=== PATIENT | female | born 1955 | race Caucasian/White ===

== ENCOUNTER 2019-08-14 05:45 | Outpatient (RCR) | payer MEDICARE, MEDICAID, SELFPAY | END 2019-08-15 00:01 | LOC: ONCMED 05:45 | PROVIDERS: Family Provider Family Medicine; PCP Nurse Practitioner; Visit Provider Internal Medicine Medical Oncology | DX: C54.1 Malignant neoplasm of endometrium (principal); C79.61 Secondary malignant neoplasm of right ovary; C77.5 Secondary and unspecified malignant neoplasm of intrapelvic lymph nodes; E03.9 Hypothyroidism, unspecified; K21.9 Gastro-esophageal reflux disease without esophagitis; M25.552 Pain in left hip; M25.551 Pain in right hip; I10 Essential (primary) hypertension; E78.5 Hyperlipidemia, unspecified; J45.909 Unspecified asthma, uncomplicated; G47.33 Obstructive sleep apnea (adult) (pediatric); M48.9 Spondylopathy, unspecified; M19.90 Unspecified osteoarthritis, unspecified site; F32.9 Major depressive disorder, single episode, unspecified; Z90.722 Acquired absence of ovaries, bilateral; Z90.710 Acquired absence of both cervix and uterus; Z92.3 Personal history of irradiation ==

== ENCOUNTER 2019-09-12 05:48 | Outpatient (RCR) | payer MEDICARE, MEDICAID, SELFPAY | END 2019-09-15 23:59 | disposition home or self-care (01) | LOC: ONCMED 05:48 | PROVIDERS: Family Provider Family Medicine; PCP Nurse Practitioner; Visit Provider Internal Medicine Medical Oncology | DX: Z08 Encounter for follow-up examination after completed treatment for malignant neoplasm (principal); Z85.42 Personal history of malignant neoplasm of other parts of uterus; R60.0 Localized edema; M06.9 Rheumatoid arthritis, unspecified; Z90.710 Acquired absence of both cervix and uterus; Z92.21 Personal history of antineoplastic chemotherapy; Z92.3 Personal history of irradiation | CPT/HCPCS: 36591; 99213 ==

== ENCOUNTER 2019-09-19 11:32 | Outpatient (CLI) | payer MEDICARE, MEDICAID, SELFPAY ==
--- NOTE | 2019-09-19 11:42 | XR_ITS ---
WS: [id number] FOOT LEFT TECHNIQUE: 3 views of the left foot CLINICAL INFORMATION: LEFT HEEL PAIN COMPARISON: None. FINDINGS: No evidence of acute fracture or dislocation. Normal tarsal metatarsal alignment. Normal calcaneus. N ormal visualized talar dome. Plantar calcaneal spurring. Achilles enthesophyte. IMPRESSION: 1. No acute fractures 2. Plantar calcaneal spurring. Achilles enthesophyte.
== END 2019-09-19 11:33 | disposition home or self-care (01) ==
LOC: RAD 11:38
PROVIDERS: Family Provider Family Medicine; PCP Family Medicine; Visit Provider Nurse Practitioner Family
DX: M79.672 Pain in left foot (principal); M77.32 Calcaneal spur, left foot
CPT/HCPCS: 73630

== ENCOUNTER → 2019-09-27 07:51 | Outpatient (BNVA) | payer MEDICARE, MEDICAID, SELFPAY | PROVIDERS: Family Provider Family Medicine; PCP Family Medicine; Visit Provider Anesthesiology | DX: M54.41 Lumbago with sciatica, right side (principal); M54.42 Lumbago with sciatica, left side; M48.062 Spinal stenosis, lumbar region with neurogenic claudication; Z79.891 Long term (current) use of opiate analgesic | CPT/HCPCS: 99213 ==

== ENCOUNTER 2019-10-11 05:53 | Outpatient (RCR) | payer MEDICARE, MEDICAID, SELFPAY | END 2019-10-14 23:59 | disposition home or self-care (01) | LOC: ONCMED 05:53 | PROVIDERS: Family Provider Family Medicine; PCP Family Medicine; Visit Provider Internal Medicine Medical Oncology | DX: Z45.2 Encounter for adjustment and management of vascular access device (principal) | CPT/HCPCS: 96523 ==

== ENCOUNTER → 2019-10-16 11:52 | Outpatient (BNVA) | payer MEDICARE, MEDICAID, SELFPAY | PROVIDERS: Family Provider Family Medicine; PCP Family Medicine; Visit Provider Anesthesiology Pain Medicine | DX: G89.4 Chronic pain syndrome (principal); M47.816 Spondylosis without myelopathy or radiculopathy, lumbar region; M47.817 Spondylosis without myelopathy or radiculopathy, lumbosacral region | CPT/HCPCS: 64493; 64494; 64520; J2001; J3490 ==

== ENCOUNTER → 2019-10-25 09:40 | Outpatient (BNVA) | payer MEDICARE, MEDICAID, SELFPAY | PROVIDERS: Family Provider Family Medicine; PCP Family Medicine; Visit Provider Anesthesiology | DX: M48.062 Spinal stenosis, lumbar region with neurogenic claudication (principal); M54.42 Lumbago with sciatica, left side; M54.41 Lumbago with sciatica, right side; Z79.891 Long term (current) use of opiate analgesic | CPT/HCPCS: 99213; 99214 ==

== ENCOUNTER → 2019-10-31 08:45 | Outpatient (BNVA) | payer MEDICARE, MEDICAID, SELFPAY | PROVIDERS: Family Provider Family Medicine; PCP Family Medicine; Visit Provider Anesthesiology Pain Medicine | DX: M54.9 Dorsalgia, unspecified (principal); Z79.891 Long term (current) use of opiate analgesic | CPT/HCPCS: 99212 ==

== ENCOUNTER 2019-11-07 10:55 | Outpatient (RCR) | payer MEDICARE, MEDICAID, SELFPAY | END 2019-11-14 23:59 | disposition home or self-care (01) | LOC: ONCMED 10:55 | PROVIDERS: Family Provider Family Medicine; PCP Family Medicine; Visit Provider Internal Medicine Medical Oncology | DX: Z45.2 Encounter for adjustment and management of vascular access device (principal) | CPT/HCPCS: 96523 ==

== ENCOUNTER 2019-12-04 10:23 | Outpatient (RCR) | payer MEDICARE, MEDICAID, SELFPAY | END 2019-12-14 23:59 | disposition home or self-care (01) | LOC: ONCMED 10:23 | PROVIDERS: Family Provider Family Medicine; PCP Family Medicine; Visit Provider Internal Medicine Medical Oncology | DX: Z45.2 Encounter for adjustment and management of vascular access device (principal); C54.1 Malignant neoplasm of endometrium | CPT/HCPCS: 96523 ==

== ENCOUNTER 2020-01-01 07:09 | Outpatient (RCR) | payer MEDICARE, MEDICAID, SELFPAY ==
[2020-01-01] MEDS: alteplase 1 mg/mL SDV 2 mL 2 MG IV (12:23)
== END 2020-01-14 23:59 | disposition home or self-care (01) ==
LOC: ONCMED 07:09
PROVIDERS: PCP Family Medicine; Visit Provider Nurse Practitioner
DX: C54.1 Malignant neoplasm of endometrium (principal); R22.2 Localized swelling, mass and lump, trunk; L72.9 Follicular cyst of the skin and subcutaneous tissue, unspecified
CPT/HCPCS: 36593; 96374; J2997

== ENCOUNTER 2020-01-29 08:01 | Outpatient (RCR) | payer MEDICARE, MEDICAID, SELFPAY | END 2020-02-13 23:59 | disposition home or self-care (01) | LOC: ONCMED 08:01 | PROVIDERS: PCP Family Medicine; Visit Provider Nurse Practitioner | DX: Z45.2 Encounter for adjustment and management of vascular access device (principal); C54.1 Malignant neoplasm of endometrium; L72.9 Follicular cyst of the skin and subcutaneous tissue, unspecified; R22.2 Localized swelling, mass and lump, trunk | CPT/HCPCS: 96523 ==

== ENCOUNTER → 2020-02-20 07:50 | Outpatient (BNVA) | payer MEDICARE, MEDICAID, SELFPAY | PROVIDERS: PCP Family Medicine; Visit Provider Anesthesiology | DX: M54.42 Lumbago with sciatica, left side (principal); M54.41 Lumbago with sciatica, right side; M48.062 Spinal stenosis, lumbar region with neurogenic claudication; M54.9 Dorsalgia, unspecified; Z79.891 Long term (current) use of opiate analgesic | CPT/HCPCS: 99214 ==

== ENCOUNTER 2020-03-01 08:57 | Outpatient (RCR) | payer MEDICARE, MEDICAID, SELFPAY | END 2020-03-15 23:59 | disposition home or self-care (01) | LOC: ONCMED 08:57 | PROVIDERS: PCP Family Medicine; Visit Provider Nurse Practitioner | DX: Z45.2 Encounter for adjustment and management of vascular access device (principal); C54.1 Malignant neoplasm of endometrium; L72.9 Follicular cyst of the skin and subcutaneous tissue, unspecified; R22.2 Localized swelling, mass and lump, trunk | CPT/HCPCS: 96523 ==

== ENCOUNTER 2020-03-29 06:36 | Outpatient (RCR) | payer MEDICARE, MEDICAID, SELFPAY | END 2020-04-15 23:59 | disposition home or self-care (01) | LOC: ONCMED 06:36 | PROVIDERS: PCP Family Medicine; Visit Provider Nurse Practitioner | DX: Z45.2 Encounter for adjustment and management of vascular access device (principal) | CPT/HCPCS: 96523 ==

== ENCOUNTER 2020-04-24 07:47 | Outpatient (CLI) | payer MEDICARE, MEDICAID, SELFPAY ==
--- NOTE | 2020-04-24 08:00 | CT_ITS ---
WS: [id number] CT CHEST, ABDOMEN AND PELVIS WITH CONTRAST HISTORY: UTERINE PAPILLARY CARCINOMA TECHNIQUE: Contiguous 5 mm axial imaging performed through the chest, abdomen and pelvis with IV cont rast, oral contrast has been provided. Coronal and sagittal reformats chest. Coronal and sagittal ref ormats through the abdomen and pelvis. All CT scans at [facility] use at least one of the se dose optimization techniques: automated exposure control; mA and/or kV adjustment per patient size (includes targeted exams where dose is matched to clinical indication); or iterative reconstruction. CONTRAST: Omnipaque 300; 95 mL IV. DLP: 2501.15 mGycm COMPARISON: 06/01/2019 and 07/26/2018 and 12/20/[address]: Poor inspiration. Stable subsegmental atelectasis at the lingula and subpleural 3 mm lingul ar nodule. No pleural effusion or pericardial effusion. Heart is enlarged. Pulmonary arteries are lar ge. No adenopathy. Benign calcified LEFT hilar lymph nodes. Visualized thyroid in the soft tissues of the chest are normal otherwise. Small hiatal hernia. Abdomen CT: Previously described cavernous hemangioma in the superior RIGHT lobe of the liver is agai n identified with a maximum diameter of 2.1 cm. No evidence for metastatic disease. Splenic granuloma ta. Normal size spleen. Normal gallbladder. Normal adrenal glands and pancreas. Normal size aorta. No solid renal mass or obstruction. 2 cysts within the LEFT kidney. The largest in the superior pole me asures 2.5 cm. No mesenteric or retroperitoneal adenopathy. Moderate constipation. No GI tract obstruction. The appendix is normal. Pelvic CT: No free fluid or pelvic adenopathy. Prior hysterectomy. Normally distended urinary bladder . Perirectal fat is normal. No pelvic adenopathy. No mesenteric deposits are identified. Degenerative disc disease at L5-S1. Mild spondylitic changes throughout the thoracic and lumbar spine otherwise. No destructive rib lesions. CT/CT chest abd pel w con* IMPRESSION: 1. No evidence for metastatic disease to the chest, abdomen or pelvis. 2. No ascites or adenopathy. 3. Stable subsegmental atelectasis and subpleural nodule at the lingula. 4. Prior hysterectomy. 5. Stable hepatic hemangioma.
[2020-04-24] MEDS: iohexol 300 mg/mL 50 mL Btl PO (08:54)
[2020-04-24 09:54] LABS: Glomerular Filtration Rate 83.7 mL/min (90-130)
[2020-04-24] MEDS: iohexol 300 mg/mL 100 mL Btl IV (10:01)
== END 2020-04-24 07:48 | disposition home or self-care (01) ==
LOC: RADWPI 07:50
PROVIDERS: Family Provider Family Medicine; PCP Family Medicine; Visit Provider Student in an Organized Health Care Education/Training Program
DX: C55 Malignant neoplasm of uterus, part unspecified (principal); J98.11 Atelectasis; R91.1 Solitary pulmonary nodule; D18.09 Hemangioma of other sites
CPT/HCPCS: 71260; 74177; 82565; Q9967

== ENCOUNTER 2020-04-30 06:11 | Outpatient (CLI) | payer MEDICARE, MEDICAID, SELFPAY ==
[2020-04-30 11:47] LABS: Basophils % 0.4 %; Eosinophils # 0.1 10^3/uL (0.0-0.8); Eosinophils % 1.5 %; Hematocrit 38.5 % (37.0-47.0); Lymphocytes # 0.8 10^3/uL (0.8-4.8); Lymphocytes % 12.3 %; Mean Corpuscular HGB Conc 31.2 g/dL (30.0-36.0); Mean Platelet Volume 9.5 fL (7.4-10.4); Monocytes # 0.7 10^3/uL (0.2-0.9); Monocytes % 10.7 %; Neutrophils # 5.12 10^3/uL (1.8-7.7); Neutrophils % 74.7 %; Nucleated Red Blood Cells % 0 %; Platelet Count 251 10^3/cmm (130-400); Red Blood Count 4.14 10^6/uL (4.1-5.3); Red Cell Distribution Width 14.2 % (12.1-15.1); White Blood Count 6.9 10^3/uL (4.0-10.0)
[2020-04-30 12:11] LABS: Alanine Aminotransferase 17 U/L (0-33); Alkaline Phosphatase 106 IU/L (35-105); Anion Gap 13.4 (5-19); Aspartate Amino Transferase 18 U/L (0-32); Blood Urea Nitrogen 17 mg/dL (8-23); Calcium 9.2 mg/dL (8.5-10.5); Carbon Dioxide 28 mmol/L (22-29); Chloride 101 mmol/L (98-107); Globulin 3.3 g/dL (1.3-4.6); Glomerular Filtration Rate 83.7 mL/min (90-130); Glucose 100 mg/dL (65-115); Osmolality Calculated 282 mOsm/kg (285-295); Potassium 4.4 mmol/L (3.5-5.1); Sodium 138 mmol/L (136-145); Total Bilirubin 0.3 mg/dL (0.15-1.2); Total Protein 7.3 g/dL (6.6-8.7)
--- NOTE | 2020-05-04 11:37 | ONC FU_ITS ---
Dr. Troy Patient Follow-Up Note Patient: Mely Alicea Unit #: [id number]: 1955 Dicatated By: Hira Troy M.D.Date of Visit:Apr 30, 2020 Onc Med Follow-up/Prog Note Chief Complaint: Endometrial cancer. 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 She had presented to Dr. Tripathi with a 4-5 month history of postmenopausal bleeding. She was seen by Dr. Salvador and she was then found on transvaginal pelvic to have thickened endometrium measuring up to 2.8 cm associated with heterogeneously increased echotexture. The reported differential included hyperplasia, polyps, or malignancy. She underwent D&C on 06/02/2018. Pathology showed poorly to undifferentiated malignant neoplasm. 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 Davenport. Further evaluation with chest CT on 07/26/2018 showed unchanged lingular 2.9 mm pleural nodule with benign etiology favored. There was unchanged right hepatic hemangioma measuring 3.0 cm and unchanged left upper pole renal cyst measuring 2.1 cm. The available records do not include any additional imaging studies. She had a screening colonoscopy on 07/27/2018. On 07/28/2018 she underwent robotic-assisted modified radical total laparoscopic hysterectomy, bilateral salpingo-oophorectomy, omentectomy, pelvic periaortic lymphadenectomy, sentinel node mapping, bilateral para-aortic and bilateral pelvic lymph node biopsies. Pathology showed grade 3 papillary serous adenocarcinoma which grossly measured 6.4 x 5.3 x 2.3 cm. The lesion was noted to be deeply invasive within the extreme fundus and upper and mid posterior uterine segment with extension greater than 60% of the myometrial wall. The deepest myometrial invasion was measured at 9 mm with the myometrial thickness at that point measuring 11 mm. There was no involvement in the uterine serosa or the cervix and there was no parametrial involvement. There was a metastatic tumor nodule on the right ovary which measured 0.5 x 0.4 cm. A total of 32 lymph nodes were sampled. There was involvement in 1 left obturator lymph node which measured greater than 2 mm. The remainder of the lymph nodes were negative. The peritoneal fluid cytology was reported to be positive. Given the lymph node involvement and positive peritoneal fluid cytology, she was recommended to undergo postoperative adjuvant chemotherapy and radiation, to include HDR implant. She began cycle 1 of carboplatin/paclitaxel chemotherapy on . She tolerated it with acceptable toxicity. She was able to continue with cycle 2 on 11/02/2018 and with cycle 3 on 11/23/2018. She was given Neulasta prophylactically with the 3rd cycle. She then stopped chemotherapy and began pelvic radiation on 12/22/2018. She completed treatment on 01/27/2019 to a total dose of 5040 cGy. She underwent HDR implant on 02/07/2019 and 02/14/2019, total dose 1200 cGy. She then continued with cycle 4 of chemotherapy on 03/21/2019, with cycle 5 on 04/19/2019, and with cycle 6 on 05/09/2019. She was then followed on observation/expectant management. Her other medical illnesses include hypertension, hyperlipidemia, asthma, obstructive sleep apnea, and degenerative arthritis. She is under the impression that she has rheumatoid arthritis, but that diagnosis is not supported in her medical records, including reports from her scientific research associate. She is a nonsmoker. INTERIM HISTORY: Surveillance CT scans on 04/24/2020 showed no evidence for metastatic disease in the chest, abdomen, or pelvis. A right lobe hepatic angioma appeared stable. She is seen for a followup visit. She still complains that she is tired and that her bones ache. She is able to do light work. ECOG score is 1. Appetite is variable, but overall just fair. Her weight is down 7 pounds since July. She does not have fever or night sweats. She has occasional hot flashes. She has shortness of breath with activity. She does not complain of cough and she has not been having chest pain. Her acid reflux is adequately managed with medication. She has no other GI or complaints. She continues to have pain in her lower back and in her tailbone and hips. She has numbness/tingling in her hands. She is having difficulty sleeping at night. Medications: Atorvastatin Calcium 1 (20 mg) Tablet Oral at bedtime, B-Complex/B-12 Liquid Sublingual, FLUoxetine HCl 20 (20 mg) Capsule Oral daily, Furosemide 1 (40 mg) Tablet Oral daily PRN, Gabapentin 2 Capsule (of 400 mg) Oral b.i.d., Garlic 1 Capsule (of 1000 mg) Oral daily, Glucosamine 2 Capsule (of 2000 mg) Oral daily, Iron 1 Tablet (of 325 (65 fe) mg) Oral daily, Klor-Con 10 1 (10 meq) Tablet, controlled release Oral daily, Lisinopril 1 Tablet (of 10 mg) Oral daily, Melatonin 2 Tablet (of 300 mcg) Oral at bedtime, Montelukast Sodium 1 Tablet (of 10 mg) Oral daily, Morphine Sulfate 1 Tablet (of 15 mg) Oral four times a day, Pantoprazole Sodium 1 Tablet (of 40 mg) Tablet, enteric coated Oral b.i.d., raNITIdine HCl 1 (150 mg) Tablet Oral b.i.d., ROPINIRole HCl 3 Tablet (of 0.25 mg) Tablet Oral at bedtime, Symbicort 1 (160-4.5 mcg/act) Aerosol Inhalation daily, TiZANidine HCl 1 Tablet (of 4 mg) Oral t.i.d. Allergies: No Known Allergies. Review of Systems: Constitutional - She is very tired. Appetite is good. Her weight is stable. No fever, night sweats, or hot flashes. ECOG score is 1, ENMT - No sinus congestion/drainage. No mouth sores. No sore throat or difficulty swallowing, Hematologic/Lymphatic - She bruises easily, Respiratory - She gets short of breath with activity. No cough. No pleuritic pain or hemoptysis, Cardiovascular - No angina pain. No palpitations, Gastrointestinal - No nausea or vomiting. Her heartburn is adequately with Pantoprazole. No diarrhea or constipation. No blood in the stool or black stools, Genitourinary (F) - No dysuria or hematuria. No urinary frequency. No urgency or incontinence, Musculoskeletal - She has pain in her hips, tail bone and in her lower back. She is taking morphine 15 mg four times daily, as well as 7.5mg meloxicam for this and reports she still has significant pain, mostly at night, Integumentary - No skin complications, Neurologic - No headache or dizziness. No numbness or tingling. No other focal neurologic symptoms, Psychiatric - Her anxiety and depression symptoms are adequately managed with fluoxetine. She does not sleep well related to her pain. She is taking 50 mg of trazodone and melatonin nightly with no benefit. Vital Signs: Performed on Apr 30, 2020 13:03 Height - 63.00 in Weight - 264.2 lbs (LOW) BSA - 2.18 sq.m BMI - 46.80 (HIGH) Temperature - 97.1 F (LOW) Pulse - 86 /min Respiration - 24 /min BP - 130/83 mm(hg) O2 Sat - 96 % Pain - 7 Physical Examination: Constitutional - She looks pretty good generally, Eyes - Sclerae nonicteric. Conjunctivae clear, ENMT - No lesions noted in the oral cavity, Hematologic/Lymphatic - No cervical, clavicular, or axillary adenopathy, Respiratory - Lungs are clear with good air movement bilaterally, Cardiovascular - Heart rhythm is regular. There is a II/ systolic murmur. There is no gallop or rub noted, Abdomen - Soft. Liver and spleen are not enlarged. There is no abdominal mass or ascites noted and there is no inguinal adenopathy, Extremities - No edema, Neurologic - No focal neurologic deficits noted. Lab/Imaging: Test performed on Apr 30, 2020 11:25 Sodium 138 mmol/L Potassium 4.4 mmol/L Chloride 101 mmol/L CO2 28 mmol/L Anion Gap 13.4 BUN 17 mg/dL Creatinine 0.7 mg/dL Cr Clearance (Est) 146.7300 mL/min eGFR 83.7 mL/min Glucose 100 mg/dL Calcium 9.2 mg/dL Osmolality - Calculated 282 mOsm/kg Protein, Total 7.3 g/dL Albumin 4.0 g/dL Globulin 3.3 g/dL Bilirubin, Total 0.3 mg/dL ALT (SGPT) 17 U/L AST (SGOT) 18 U/L Alkaline Phosphatase 106 IU/L WBC 6.9 10 3/uL RBC 4.14 10 6/uL HGB 12.0 g/dL HCT 38.5 % MCV 93.0 fL MCH 29.0 pg MCHC 31.2 g/dL RDW 14.2 % Platelet Count 251 10 3/cmm MPV 9.5 fL Neutrophils 5.12 10 3/uL Lymphocytes 0.8 10 3/uL Monocytes 0.7 10 3/uL Eosinophils 0.1 10 3/uL Basophils 0.0 10 3/uL Neutrophil % 74.7 % Lymphocyte % 12.3 % Monocyte % 10.7 % Eosinophil % 1.5 % Basophils % 0.4 % NRBC % 0 % Impression: 1. 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 2. She underwent robotic-assisted modified radical total laparoscopic hysterectomy, bilateral salpingo-oophorectomy, omentectomy, pelvic periaortic lymphadenectomy, sentinel node mapping, bilateral para-aortic and bilateral pelvic lymph node biopsies on 07/28/2018. Pathology showed maximum endometrial invasion of 9 mm with myometrial thickness 11 mm, a metastatic nodule on the right ovary, involvement in 1/32 lymph nodes (left obturator node), and positive peritoneal fluid cytology. Her other medical illnesses include: 3. Hypertension. 4. Hyperlipidemia. 5. Asthma. 6. Obstructive sleep apnea. 7. Degenerative arthritis/degenerative disease of the spine. 8. Depression. She began adjuvant chemotherapy with carboplatin/paclitaxel on 10/11/2018. She completed her 3rd cycle on 11/23/2018. She then underwent pelvic radiation followed by HDR implant, which she completed on 02/14/2019. She continued with cycle 4 of chemotherapy on 03/21/2019, with cycle 5 on 04/19/2019, and with cycle 6 on 05/09/2019. She had significant fatigue with the chemotherapy, but just mild neuropathy. Overall, she tolerated it well. During follow-up she is continued to have significant fatigue and musculoskeletal pain. She also has some residual neuropathy. There is been no evidence, though, of recurrence of the endometrial cancer. Plan: She continues on observation/expectant management. I will have her try increasing the dosages of her trazodone and meloxicam. She will be scheduled for a follow-up visit in 3 months. Signed By: Hira Troy M.D. <<Signature on File>>
== END 2020-04-30 06:12 | disposition home or self-care (01) ==
PROVIDERS: PCP Family Medicine; Visit Provider Internal Medicine Medical Oncology
DX: Z08 Encounter for follow-up examination after completed treatment for malignant neoplasm (principal); Z85.42 Personal history of malignant neoplasm of other parts of uterus; I10 Essential (primary) hypertension; E78.5 Hyperlipidemia, unspecified; J45.909 Unspecified asthma, uncomplicated; G47.33 Obstructive sleep apnea (adult) (pediatric); M47.9 Spondylosis, unspecified; F32.9 Major depressive disorder, single episode, unspecified
CPT/HCPCS: 36591; 80053; 85025; G0463

== ENCOUNTER → 2020-05-10 07:51 | Outpatient (BNVA) | payer MEDICARE, MEDICAID, SELFPAY | PROVIDERS: PCP Family Medicine; Visit Provider Anesthesiology | DX: M54.42 Lumbago with sciatica, left side (principal); M54.41 Lumbago with sciatica, right side; M48.062 Spinal stenosis, lumbar region with neurogenic claudication; M54.9 Dorsalgia, unspecified; Z79.891 Long term (current) use of opiate analgesic | CPT/HCPCS: 99213; 99214 ==

== ENCOUNTER 2020-05-30 11:14 | Outpatient (CLI) | payer MEDICARE, MEDICAID, SELFPAY | END 2020-05-30 11:15 | disposition home or self-care (01) | LOC: ONCMED 11:18 | PROVIDERS: PCP Family Medicine; Visit Provider Internal Medicine Medical Oncology | DX: Z45.2 Encounter for adjustment and management of vascular access device (principal) | CPT/HCPCS: 96523 ==

== ENCOUNTER 2020-06-25 06:30 | Outpatient (CLI) | payer MEDICARE, MEDICAID, SELFPAY | END 2020-06-25 06:31 | disposition home or self-care (01) | LOC: ONCMED 06:33 | PROVIDERS: PCP Family Medicine; Visit Provider Internal Medicine Medical Oncology | DX: Z45.2 Encounter for adjustment and management of vascular access device (principal) | CPT/HCPCS: 96523 ==

== ENCOUNTER → 2020-07-04 13:18 | Outpatient (BNVA) | payer MEDICARE, MEDICAID, SELFPAY | PROVIDERS: PCP Family Medicine; Visit Provider Internal Medicine | DX: M05.9 Rheumatoid arthritis with rheumatoid factor, unspecified (principal); Z11.1 Encounter for screening for respiratory tuberculosis; Z11.59 Encounter for screening for other viral diseases; Z79.899 Other long term (current) drug therapy; Z72.89 Other problems related to lifestyle | CPT/HCPCS: 36415; 80053; 82955; 85025; 85651; 86140; 86480; 86704; 86803; 87340; 99204 ==

== ENCOUNTER 2020-07-24 07:51 | Outpatient (CLI) | payer MEDICARE, MEDICAID, SELFPAY ==
--- NOTE | 2020-07-24 08:12 | MM_ITS ---
WS: [id number] BILATERAL DIGITAL SCREENING MAMMOGRAPHY WITH CAD CLINICAL INFORMATION: SCREENING HISTORY: Screening mammogram. No current complaints. COMPARISON: None. TECHNIQUE: Bilateral CC and MLO views. FINDINGS: Scattered fibroglandular densities bilaterally. No suspicious focal mass, asymmetry, calcifications, or architectural distortion. No evidence of malignancy. Punctate and lucent centered calcifications. MM/[id number] IMPRESSION: BI-RADS: 2-Benign FOLLOW UP: 1 Year Follow-up Recommend return to annual screening mammography.
== END 2020-07-24 07:52 | disposition home or self-care (01) ==
LOC: RADSHAW 07:55
PROVIDERS: PCP Family Medicine; Visit Provider Family Medicine
DX: Z12.31 Encounter for screening mammogram for malignant neoplasm of breast (principal)
CPT/HCPCS: 77067

== ENCOUNTER → 2020-07-31 09:56 | Outpatient (BNVA) | payer MEDICARE, MEDICAID, SELFPAY | PROVIDERS: PCP Family Medicine; Visit Provider Anesthesiology | DX: M54.41 Lumbago with sciatica, right side (principal); M54.42 Lumbago with sciatica, left side; M48.062 Spinal stenosis, lumbar region with neurogenic claudication; M54.9 Dorsalgia, unspecified; Z79.891 Long term (current) use of opiate analgesic | CPT/HCPCS: 99213; 99214 ==

== ENCOUNTER 2020-07-31 14:31 | Outpatient (CLI) | payer MEDICARE, MEDICAID, SELFPAY ==
[2020-07-31 15:21] LABS: Basophils % 0.5 %; Eosinophils # 0.2 10^3/uL (0.0-0.8); Eosinophils % 2.4 %; Hematocrit 40.3 % (37.0-47.0); Hemoglobin 12.7 g/dL (11.5-15.3); Lymphocytes # 1.2 10^3/uL (0.8-4.8); Lymphocytes % 15.3 %; Mean Corpuscular HGB Conc 31.5 g/dL (30.0-36.0); Mean Corpuscular Hemoglobin 28.6 pg (28.0-34.0); Mean Corpuscular Volume 90.8 fL (81-99); Mean Platelet Volume 9.7 fL (7.4-10.4); Monocytes # 0.6 10^3/uL (0.2-0.9); Monocytes % 8.2 %; Neutrophils # 5.56 10^3/uL (1.8-7.7); Neutrophils % 73.2 %; Nucleated Red Blood Cells % 0 %; Platelet Count 267 10^3/cmm (130-400); Red Blood Count 4.44 10^6/uL (4.1-5.3); Red Cell Distribution Width 13.4 % (12.1-15.1); White Blood Count 7.6 10^3/uL (4.0-10.0)
[2020-07-31 15:49] LABS: Alanine Aminotransferase 22 U/L (0-33); Albumin Level 4.3 g/dL (3.5-5.2); Alkaline Phosphatase 106 IU/L (35-105); Anion Gap 16.2 (5-19); Aspartate Amino Transferase 17 U/L (0-32); Blood Urea Nitrogen 16 mg/dL (8-23); Calcium 9.3 mg/dL (8.5-10.5); Carbon Dioxide 30 mmol/L (22-29); Chloride 100 mmol/L (98-107); Globulin 3.4 g/dL (1.3-4.6); Glomerular Filtration Rate 62.6 mL/min (90-130); Glucose 120 mg/dL (65-115); Osmolality Calculated 296 mOsm/kg (285-295); Potassium 4.2 mmol/L (3.5-5.1); Sodium 142 mmol/L (136-145); Total Bilirubin 0.2 mg/dL (0.15-1.2); Total Protein 7.7 g/dL (6.6-8.7)
--- NOTE | 2020-08-01 16:47 | ONC FU_ITS ---
Dr. Troy Patient Follow-Up Note Patient: Mely Alicea Unit #: [id number]: 1955 Dicatated By: Hira Troy M.D.Date of Visit:Jul 31, 2020 Onc Med Follow-up/Prog Note Chief Complaint: Endometrial cancer. 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 She had presented to Dr. Tripathi with a 4-5 month history of postmenopausal bleeding. She was seen by Dr. Salvador and she was then found on transvaginal pelvic to have thickened endometrium measuring up to 2.8 cm associated with heterogeneously increased echotexture. The reported differential included hyperplasia, polyps, or malignancy. She underwent D&C on 06/02/2018. Pathology showed poorly to undifferentiated malignant neoplasm. 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 Further evaluation with chest CT on 07/26/2018 showed unchanged lingular 2.9 mm pleural nodule with benign etiology favored. There was unchanged right hepatic hemangioma measuring 3.0 cm and unchanged left upper pole renal cyst measuring 2.1 cm. The available records do not include any additional imaging studies. She had a screening colonoscopy on 07/27/2018. On 07/28/2018 she underwent robotic-assisted modified radical total laparoscopic hysterectomy, bilateral salpingo-oophorectomy, omentectomy, pelvic periaortic lymphadenectomy, sentinel node mapping, bilateral para-aortic and bilateral pelvic lymph node biopsies. Pathology showed grade 3 papillary serous adenocarcinoma which grossly measured 6.4 x 5.3 x 2.3 cm. The lesion was noted to be deeply invasive within the extreme fundus and upper and mid posterior uterine segment with extension greater than 60% of the myometrial wall. The deepest myometrial invasion was measured at 9 mm with the myometrial thickness at that point measuring 11 mm. There was no involvement in the uterine serosa or the cervix and there was no parametrial involvement. There was a metastatic tumor nodule on the right ovary which measured 0.5 x 0.4 cm. A total of 32 lymph nodes were sampled. There was involvement in 1 left obturator lymph node which measured greater than 2 mm. The remainder of the lymph nodes were negative. The peritoneal fluid cytology was reported to be positive. Given the lymph node involvement and positive peritoneal fluid cytology, she was recommended to undergo postoperative adjuvant chemotherapy and radiation, to include HDR implant. She began cycle 1 of carboplatin/paclitaxel chemotherapy on . She tolerated it with acceptable toxicity. She was able to continue with cycle 2 on 11/02/2018 and with cycle 3 on 11/23/2018. She was given Neulasta prophylactically with the 3rd cycle. She then stopped chemotherapy and began pelvic radiation on 12/22/2018. She completed treatment on 01/27/2019 to a total dose of 5040 cGy. She underwent HDR implant on 02/07/2019 and 02/14/2019, total dose 1200 cGy. She then continued with cycle 4 of chemotherapy on 03/21/2019, with cycle 5 on 04/19/2019, and with cycle 6 on 05/09/2019. She was then followed on observation/expectant management. Her other medical illnesses include hypertension, hyperlipidemia, asthma, obstructive sleep apnea, and degenerative arthritis. She is under the impression that she has rheumatoid arthritis, but that diagnosis is not supported in her medical records, including reports from her manager style. She is a nonsmoker. INTERIM HISTORY: Surveillance CT scans on 04/24/2020 showed no evidence for metastatic disease in the chest, abdomen, or pelvis. A right lobe hepatic angioma appeared stable. At her follow-up visit on 04/30/2020 she appeared stable clinically and she continued on observation/expectant management. She is seen for a followup visit. She complains that she has no energy and that she gives out with any activity. Her ECOG score is 2. Appetite is variable. Her weight is down about 5 pounds. She does not have fever. She occasionally has a little bit of sweating at night. She is short of breath with activity. She does not complain of cough and she has not been having chest pain. She has no GI or complaints. She is having joint pain, mainly in her hands and knees. She does not complain of headache or dizziness. She has no focal neurologic symptoms. Medications: antiarthritic 1 Tablet daily, Atorvastatin Calcium 1 (20 mg) Tablet Oral at bedtime, Diclofenac Sodium 1 (1 %) Cream Transdermal daily, FLUoxetine HCl 20 (20 mg) Capsule Oral daily, Furosemide 1 (40 mg) Tablet Oral daily PRN, Gabapentin 2 Capsule (of 400 mg) Oral b.i.d., Garlic 1 Capsule (of 1000 mg) Oral daily, Glucosamine 2 Capsule (of 2000 mg) Oral daily, Hydroxychloroquine Sulfate 1 Tablet (of 200 mg) Oral b.i.d., Iron 1 Tablet (of 325 (65 fe) mg) Oral daily, Klor-Con 10 1 (10 meq) Tablet, controlled release Oral daily, Lisinopril 1 Tablet (of 20 mg) Oral daily, Melatonin 2 Tablet (of 300 mcg) Oral at bedtime, Meloxicam 1 Tablet (of 7.5 mg) Oral b.i.d., Montelukast Sodium 1 Tablet (of 10 mg) Oral daily, Morphine Sulfate 1 Tablet (of 15 mg) Oral four times a day, Pantoprazole Sodium 1 Tablet (of 40 mg) Tablet, enteric coated Oral b.i.d., raNITIdine HCl 1 (150 mg) Tablet Oral b.i.d., ROPINIRole HCl 3 Tablet (of 0.25 mg) Tablet Oral at bedtime, Symbicort 1 (160-4.5 mcg/act) Aerosol Inhalation daily Allergies: No Known Allergies. Review of Systems: Constitutional - She complained that she has no energy. She gives out with any activity. Appetite is variable. Her weight is down about 5 pounds. She has not had fever. She occasionally has a little bit of sweating at night. ECOG score is two, ENMT - No sinus congestion/drainage. No mouth sores. No sore throat or difficulty swallowing, Hematologic/Lymphatic - She has easy bruising, Respiratory - She has shortness of breath with activity. No cough. No pleuritic pain or hemoptysis, Cardiovascular - No angina pain. No palpitations, Gastrointestinal - No nausea or vomiting. No heartburn or acid reflux. No diarrhea or constipation. No blood in the stool or black stools, Genitourinary (F) - No dysuria or hematuria. No urinary frequency. No urgency or incontinence, Musculoskeletal - She is having joint pain, mainly in the hands and knees, Integumentary - No skin rash, Neurologic - No headache or dizziness. No numbness or tingling. No other focal neurologic symptoms, Psychiatric - Her anxiety/depression is adequately managed with medication. No insomnia. Vital Signs: Performed on Jul 31, 2020 15:57 Height - 63.00 in Weight - 259.0 lbs (LOW) BSA - 2.16 sq.m BMI - 45.88 (HIGH) Temperature - 97.4 F (LOW) Pulse - 85 /min Respiration - 20 /min BP - 124/69 mm(hg) O2 Sat - 96 % Pain - 0 Physical Examination: Constitutional - She looks pretty good generally, Eyes - Sclerae nonicteric. Conjunctivae clear, ENMT - No lesions noted in the oral cavity, Hematologic/Lymphatic - No cervical, clavicular, or axillary adenopathy, Respiratory - Lungs are clear with good air movement bilaterally, Cardiovascular - Heart rhythm is regular. There is a II/ systolic murmur. There is no gallop or rub noted, Abdomen - Moderately distended but soft. Liver and spleen are not enlarged. There is no abdominal mass or ascites noted and there is no inguinal adenopathy, Extremities - Slight edema, Neurologic - No focal neurologic deficits noted. Lab/Imaging: Test performed on Jul 31, 2020 15:03 Sodium 142 mmol/L Potassium 4.2 mmol/L Chloride 100 mmol/L CO2 30 mmol/L Anion Gap 16.2 BUN 16 mg/dL Creatinine 0.9 mg/dL Cr Clearance (Est) 114.1300 mL/min eGFR 62.6 mL/min Glucose 120 mg/dL Osmolality - Calculated 296 mOsm/kg Calcium 9.3 mg/dL Protein, Total 7.7 g/dL Albumin 4.3 g/dL Globulin 3.4 g/dL Bilirubin, Total 0.2 mg/dL ALT (SGPT) 22 U/L AST (SGOT) 17 U/L Alkaline Phosphatase 106 IU/L WBC 7.6 10 3/uL RBC 4.44 10 6/uL HGB 12.7 g/dL HCT 40.3 % MCV 90.8 fL MCH 28.6 pg MCHC 31.5 g/dL RDW 13.4 % Platelet Count 267 10 3/cmm MPV 9.7 fL Neutrophils 5.56 10 3/uL Lymphocytes 1.2 10 3/uL Monocytes 0.6 10 3/uL Eosinophils 0.2 10 3/uL Basophils 0.0 10 3/uL Neutrophil % 73.2 % Lymphocyte % 15.3 % Monocyte % 8.2 % Eosinophil % 2.4 % Basophils % 0.5 % NRBC % 0 % Impression: 1. 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 2. She underwent robotic-assisted modified radical total laparoscopic hysterectomy, bilateral salpingo-oophorectomy, omentectomy, pelvic periaortic lymphadenectomy, sentinel node mapping, bilateral para-aortic and bilateral pelvic lymph node biopsies on 07/28/2018. Pathology showed maximum endometrial invasion of 9 mm with myometrial thickness 11 mm, a metastatic nodule on the right ovary, involvement in 1/32 lymph nodes (left obturator node), and positive peritoneal fluid cytology. Her other medical illnesses include: 3. Hypertension. 4. Hyperlipidemia. 5. Asthma. 6. Obstructive sleep apnea. 7. Degenerative arthritis/degenerative disease of the spine. 8. Depression. She began adjuvant chemotherapy with carboplatin/paclitaxel on 10/11/2018. She completed her 3rd cycle on 11/23/2018. She then underwent pelvic radiation followed by HDR implant, which she completed on 02/14/2019. She continued with cycle 4 of chemotherapy on 03/21/2019, with cycle 5 on 04/19/2019, and with cycle 6 on 05/09/2019. She had significant fatigue with the chemotherapy, but just mild neuropathy. Overall, she tolerated it well. During follow-up she has continued to have complain of significant fatigue, but thus far there has been no evidence of recurrence of the endometrial cancer. Plan: She continues on observation/expectant management. We discussed exercise and weight loss to try and help with her lack of energy. She will be scheduled for a follow-up visit with surveillance CT scans in 3 months. In the meantime, I also suggested that she could try decreasing the gabapentin to 400 mg twice daily. Signed By: Hira Troy M.D. <<Signature on File>>
== END 2020-07-31 14:32 | disposition home or self-care (01) ==
LOC: ONCMED 14:33
PROVIDERS: PCP Family Medicine; Visit Provider Internal Medicine Medical Oncology
DX: Z08 Encounter for follow-up examination after completed treatment for malignant neoplasm (principal); Z85.41 Personal history of malignant neoplasm of cervix uteri; L72.9 Follicular cyst of the skin and subcutaneous tissue, unspecified; R22.2 Localized swelling, mass and lump, trunk; I10 Essential (primary) hypertension; E78.5 Hyperlipidemia, unspecified; J45.909 Unspecified asthma, uncomplicated; G47.33 Obstructive sleep apnea (adult) (pediatric); M47.9 Spondylosis, unspecified; F32.9 Major depressive disorder, single episode, unspecified; Z79.899 Other long term (current) drug therapy
CPT/HCPCS: 36591; 80053; 85025; G0463

== ENCOUNTER → 2020-08-14 09:40 | Outpatient (BNVA) | payer MEDICARE, MEDICAID, SELFPAY | PROVIDERS: PCP Family Medicine; Visit Provider Internal Medicine | DX: M05.9 Rheumatoid arthritis with rheumatoid factor, unspecified (principal); M54.5 Low back pain; Z79.899 Other long term (current) drug therapy; Z85.42 Personal history of malignant neoplasm of other parts of uterus | CPT/HCPCS: 99213 ==

== ENCOUNTER 2020-09-03 14:06 | Outpatient (CLI) | payer MEDICARE, MEDICAID, SELFPAY ==
[2020-09-03] MEDS: alteplase 1 mg/mL SDV 2 mL 2 MG INTRACATH (14:35)
== END 2020-09-03 14:07 | disposition home or self-care (01) ==
LOC: ONCMED 14:11
PROVIDERS: PCP Family Medicine; Visit Provider Internal Medicine Medical Oncology
DX: Z45.2 Encounter for adjustment and management of vascular access device (principal); C54.1 Malignant neoplasm of endometrium; L72.9 Follicular cyst of the skin and subcutaneous tissue, unspecified; R22.2 Localized swelling, mass and lump, trunk
CPT/HCPCS: 36593; 96374; J2997

== ENCOUNTER → 2020-10-08 09:29 | Outpatient (BNVA) | payer MEDICARE, MEDICAID, SELFPAY | PROVIDERS: PCP Family Medicine; Visit Provider Anesthesiology | DX: G89.29 Other chronic pain (principal); M48.062 Spinal stenosis, lumbar region with neurogenic claudication; M54.40 Lumbago with sciatica, unspecified side; M54.9 Dorsalgia, unspecified; Z79.891 Long term (current) use of opiate analgesic | CPT/HCPCS: 99213 ==

== ENCOUNTER 2020-10-08 10:27 | Outpatient (CLI) | payer MEDICARE, MEDICAID, SELFPAY | END 2020-10-08 10:28 | disposition home or self-care (01) | LOC: ONCMED 10:30 | PROVIDERS: PCP Family Medicine; Visit Provider Internal Medicine Medical Oncology | DX: Z45.2 Encounter for adjustment and management of vascular access device (principal) | CPT/HCPCS: 96523 ==

== ENCOUNTER 2020-10-28 12:59 | Outpatient (CLI) | payer MEDICARE, MEDICAID, SELFPAY ==
--- NOTE | 2020-10-28 13:06 | CT_ITS ---
WS: [id number] CT scan of the chest With IV contrast, CT scan of the abdomen and pelvis with IV contrast and with oral contrast. Additional two-dimensional coronal and sagittal reconstruction was performed. 1 Clinical Data: ENDOMETRIAL CANCER Comparison: CT chest abdomen and pelvis, 04/24/2020. DLP: 2531.[address] scans at [facility] use at least one of these dose optimization techniques: automat ed exposure control; mA and/or kV adjustment per patient size (includes targeted exams where dose is matched to clinical indication); or iterative reconstruction. Findings: Chest: No nodules, masses or effusions are seen. The heart size is normal with no pericardial effusion. No pneumonia or pneumothorax is seen. There ar e no metastatic nodules. The thyroid gland shows normal enhancement. The trachea bifurcates normally into the bronchi. There are calcified left hilar nodes. The pulmonary arterial system and thoracic aorta demonstrate no abnormalities or dilatations. There is no axillary or significant mediastinal adenopathy. The bones of the thorax show moderate ost eoarthritis of the thoracic vertebral bodies but no metastatic lesions. Abdomen/pelvis: . The liver, gallbladder, spleen, adrenal glands and pancreas are normal. The cavernous hemangioma of t he right lobe of the liver has not changed. No metastatic lesions to the liver are seen. The kidneys show equal bilateral contrast excretion with a left renal cortical cysts unchanged. No hy dronephrosis or renal calculi are seen. The abdominal aorta is normal in size. No appendicitis or diverticulitis is seen. There is old contrast in the stomach, small bowel and colo n and there are no bowel abnormalities. No abscess, adenopathy, ascites, mass, obstruction or free air is seen. The bladder is unremarkable. The uterus is absent. No inguinal hernia is seen. The bones of the lower thorax, lumbar spine, pelvis, and hips show no metastatic lesions. There is mo derate osteoarthritis of the lumbar vertebral bodies with degenerative disc disease at L5-S1.. CT/CT chest abd pel w con* Impression: 1. Negative for acute intra-abdominal or pelvic abnormalities. 2. Negative for acute cardiopulmonary disease. 3. Negative for metastatic disease.
[2020-10-28] MEDS: iohexol 300 mg/mL 50 mL Btl PO (13:12)
[2020-10-28 14:34] LABS: Blood Urea Nitrogen 14 mg/dL (8-23); Glomerular Filtration Rate 83.7 mL/min (90-130)
[2020-10-28] MEDS: iohexol 300 mg/mL 100 mL Btl IV (14:44)
== END 2020-10-28 13:00 | disposition home or self-care (01) ==
LOC: RADWPI 13:04
PROVIDERS: PCP Family Medicine; Visit Provider Internal Medicine Medical Oncology
DX: C54.1 Malignant neoplasm of endometrium (principal)
CPT/HCPCS: 71260; 74177; 82565; 84520; Q9967

== ENCOUNTER 2020-10-31 13:12 | Outpatient (CLI) | payer MEDICARE, MEDICAID, SELFPAY ==
[2020-10-31 14:48] LABS: Basophils % 0.5 %; Eosinophils # 0.1 10^3/uL (0.0-0.8); Eosinophils % 1.6 %; Hematocrit 38.7 % (37.0-47.0); Hemoglobin 12.4 g/dL (11.5-15.3); Lymphocytes # 1.2 10^3/uL (0.8-4.8); Lymphocytes % 15.2 %; Mean Corpuscular Hemoglobin 29.6 pg (28.0-34.0); Mean Corpuscular Volume 92.4 fL (81-99); Monocytes # 0.7 10^3/uL (0.2-0.9); Monocytes % 8.6 %; Neutrophils # 5.92 10^3/uL (1.8-7.7); Neutrophils % 73.9 %; Nucleated Red Blood Cells % 0 %; Platelet Count 246 10^3/cmm (130-400); Red Blood Count 4.19 10^6/uL (4.1-5.3); Red Cell Distribution Width 13.7 % (12.1-15.1)
[2020-10-31 15:07] LABS: Alanine Aminotransferase 19 U/L (0-33); Albumin Level 4.2 g/dL (3.5-5.2); Alkaline Phosphatase 86 IU/L (35-105); Anion Gap 12.8 (5-19); Aspartate Amino Transferase 17 U/L (0-32); Blood Urea Nitrogen 19 mg/dL (8-23); Calcium 9.2 mg/dL (8.5-10.5); Carbon Dioxide 29 mmol/L (22-29); Chloride 102 mmol/L (98-107); Globulin 3.1 g/dL (1.3-4.6); Glomerular Filtration Rate 83.7 mL/min (90-130); Glucose 92 mg/dL (65-115); Osmolality Calculated 292 mOsm/kg (285-295); Potassium 3.8 mmol/L (3.5-5.1); Sodium 140 mmol/L (136-145); Total Bilirubin 0.2 mg/dL (0.15-1.2); Total Protein 7.3 g/dL (6.6-8.7)
--- NOTE | 2020-11-04 10:30 | ONC FU_ITS ---
Dr. Troy Patient Follow-Up Note Patient: Mely Alicea Unit #: [id number]: 1955 Dicatated By: Hira Troy M.D.Date of Visit:Oct 31, 2020 Onc Med Follow-up/Prog Note Chief Complaint: Endometrial cancer. 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 She had presented to Dr. Tripathi with a 4-5 month history of postmenopausal bleeding. She was seen by Dr. Salvador and she was then found on transvaginal pelvic to have thickened endometrium measuring up to 2.8 cm associated with heterogeneously increased echotexture. The reported differential included hyperplasia, polyps, or malignancy. She underwent D&C on 06/02/2018. Pathology showed poorly to undifferentiated malignant neoplasm. 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 Further evaluation with chest CT on 07/26/2018 showed unchanged lingular 2.9 mm pleural nodule with benign etiology favored. There was unchanged right hepatic hemangioma measuring 3.0 cm and unchanged left upper pole renal cyst measuring 2.1 cm. The available records do not include any additional imaging studies. She had a screening colonoscopy on 07/27/2018. On 07/28/2018 she underwent robotic-assisted modified radical total laparoscopic hysterectomy, bilateral salpingo-oophorectomy, omentectomy, pelvic periaortic lymphadenectomy, sentinel node mapping, bilateral para-aortic and bilateral pelvic lymph node biopsies. Pathology showed grade 3 papillary serous adenocarcinoma which grossly measured 6.4 x 5.3 x 2.3 cm. The lesion was noted to be deeply invasive within the extreme fundus and upper and mid posterior uterine segment with extension greater than 60% of the myometrial wall. The deepest myometrial invasion was measured at 9 mm with the myometrial thickness at that point measuring 11 mm. There was no involvement in the uterine serosa or the cervix and there was no parametrial involvement. There was a metastatic tumor nodule on the right ovary which measured 0.5 x 0.4 cm. A total of 32 lymph nodes were sampled. There was involvement in 1 left obturator lymph node which measured greater than 2 mm. The remainder of the lymph nodes were negative. The peritoneal fluid cytology was reported to be positive. Given the lymph node involvement and positive peritoneal fluid cytology, she was recommended to undergo postoperative adjuvant chemotherapy and radiation, to include HDR implant. She began cycle 1 of carboplatin/paclitaxel chemotherapy on . She tolerated it with acceptable toxicity. She was able to continue with cycle 2 on 11/02/2018 and with cycle 3 on 11/23/2018. She was given Neulasta prophylactically with the 3rd cycle. She then stopped chemotherapy and began pelvic radiation on 12/22/2018. She completed treatment on 01/27/2019 to a total dose of 5040 cGy. She underwent HDR implant on 02/07/2019 and 02/14/2019, total dose 1200 cGy. She then continued with cycle 4 of chemotherapy on 03/21/2019, with cycle 5 on 04/19/2019, and with cycle 6 on 05/09/2019. She was then followed on observation/expectant management. Her other medical illnesses include hypertension, hyperlipidemia, asthma, obstructive sleep apnea, GERD, and degenerative arthritis. She is under the impression that she has rheumatoid arthritis, but that diagnosis is not supported in her medical records, including reports from her office administration instructor. She is a nonsmoker. INTERIM HISTORY: Surveillance CT scans on 04/24/2020 showed no evidence for metastatic disease in the chest, abdomen, or pelvis. A right lobe hepatic angioma appeared stable. At her follow-up visit on 04/30/2020 she appeared stable clinically and she continued on observation/expectant management. Her repeat CT scans on 10/28/2020 showed no evidence for recurrent or metastatic disease. She is seen for a followup visit. She has been feeling pretty good generally. Her energy level has been somewhat better. She is doing light work. Appetite is variable. Weight is down a couple of pounds. She has not had fever. She sometimes has sweating at night. Her breathing has been okay. She does not complain of cough and she has not been having chest pain. She recently has been having heartburn. She has no other GI or complaints. She does feel sore and achy, particularly in her hips and knees. She also has lower back pain. She does not complain of headache or dizziness. She has no focal neurologic symptoms. Medications: antiarthritic 1 Tablet daily, Atorvastatin Calcium 1 (20 mg) Tablet Oral at bedtime, Diclofenac Sodium 1 (1 %) Cream Transdermal daily, FLUoxetine HCl 20 (20 mg) Capsule Oral daily, Furosemide 1 (40 mg) Tablet Oral daily PRN, Gabapentin 2 Capsule (of 400 mg) Oral b.i.d., Garlic 1 Capsule (of 1000 mg) Oral daily, Glucosamine 2 Capsule (of 2000 mg) Oral daily, Hydroxychloroquine Sulfate 1 Tablet (of 200 mg) Oral b.i.d., Iron 1 Tablet (of 325 (65 fe) mg) Oral daily, Klor-Con 10 1 (10 meq) Tablet, controlled release Oral daily, Lisinopril 1 Tablet (of 20 mg) Oral daily, Melatonin 2 Tablet (of 300 mcg) Oral at bedtime, Meloxicam 1 Tablet (of 7.5 mg) Oral b.i.d., Montelukast Sodium 1 Tablet (of 10 mg) Oral daily, Morphine Sulfate 1 Tablet (of 15 mg) Oral four times a day, Pantoprazole Sodium 1 Tablet (of 40 mg) Tablet, enteric coated Oral b.i.d., raNITIdine HCl 1 (150 mg) Tablet Oral b.i.d., ROPINIRole HCl 3 Tablet (of 0.25 mg) Tablet Oral at bedtime, Symbicort 1 (160-4.5 mcg/act) Aerosol Inhalation daily Allergies: No Known Allergies. Vital Signs: Performed on Oct 31, 2020 15:35 Height - 63.00 in Weight - 256.6 lbs (LOW) BSA - 2.15 sq.m BMI - 45.45 (HIGH) Temperature - 97.2 F (LOW) Pulse - 80 /min Respiration - 18 /min BP - 143/86 mm(hg) (HIGH) O2 Sat - 99 % Pain - 6 Fatigue - 3 Physical Examination: Constitutional - She looks pretty good generally, Eyes - Sclerae nonicteric. Conjunctivae clear, ENMT - No lesions noted in the oral cavity, Hematologic/Lymphatic - No cervical, clavicular, or axillary adenopathy, Respiratory - Lungs are clear with good air movement bilaterally, Cardiovascular - Heart rhythm is regular. There is a II/ systolic murmur. There is no gallop or rub noted, Abdomen - Moderately distended but soft. Liver and spleen are not enlarged. There is no abdominal mass or ascites noted and there is no inguinal adenopathy, Extremities - No edema, Neurologic - No focal neurologic deficits noted. Lab/Imaging: Test performed on Oct 31, 2020 14:05 Sodium 140 mmol/L Potassium 3.8 mmol/L Chloride 102 mmol/L CO2 29 mmol/L Anion Gap 12.8 BUN 19 mg/dL Creatinine 0.7 mg/dL Cr Clearance (Est) 146.7300 mL/min eGFR 83.7 mL/min Glucose 92 mg/dL Osmolality - Calculated 292 mOsm/kg Calcium 9.2 mg/dL Protein, Total 7.3 g/dL Albumin 4.2 g/dL Globulin 3.1 g/dL Bilirubin, Total 0.2 mg/dL ALT (SGPT) 19 U/L AST (SGOT) 17 U/L Alkaline Phosphatase 86 IU/L WBC 8.0 10 3/uL RBC 4.19 10 6/uL HGB 12.4 g/dL HCT 38.7 % MCV 92.4 fL MCH 29.6 pg MCHC 32.0 g/dL RDW 13.7 % Platelet Count 246 10 3/cmm MPV 10.0 fL Neutrophils 5.92 10 3/uL Lymphocytes 1.2 10 3/uL Monocytes 0.7 10 3/uL Eosinophils 0.1 10 3/uL Basophils 0.0 10 3/uL Neutrophil % 73.9 % Lymphocyte % 15.2 % Monocyte % 8.6 % Eosinophil % 1.6 % Basophils % 0.5 % NRBC % 0 % Problem List: 1. Grade 3 papillary serous adenocarcinoma of the endometrium, stage IIIC1 (T3a, N1a, M0). 2. Hypertension. 3. Hyperlipidemia. 4. Asthma. 5. Obstructive sleep apnea. 6. GERD. 7. Degenerative arthritis/degenerative disease of the spine. 8. Depression. Problems Addressed with this Encounter and Plan: 1. 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 She underwent robotic-assisted modified radical total laparoscopic hysterectomy, bilateral salpingo-oophorectomy, omentectomy, pelvic periaortic lymphadenectomy, sentinel node mapping, bilateral para-aortic and bilateral pelvic lymph node biopsies on 07/28/2018. Pathology showed maximum endometrial invasion of 9 mm with myometrial thickness 11 mm, a metastatic nodule on the right ovary, involvement in 1/32 lymph nodes (left obturator node), and positive peritoneal fluid cytology. She underwent adjuvant chemotherapy with 6 cycles of carboplatin/paclitaxel from 10/11/2018 through 05/09/2019. Between chemotherapy cycles 3 and 4 she also underwent pelvic radiation followed by HDR implant, completed on 02/14/2019. Overall, she tolerated treatment well. She was then followed expectantly. During follow-up she has had ongoing complaints of fatigue, that has been showing gradual improvement. She has otherwise been doing well clinically. Thus far there has been no evidence of recurrence of the endometrial cancer. She remains on observation/expectant management. I will see her again in 6 months, or sooner as needed. 2. She has GERD, and her symptoms has worsened since she has been off ranitidine. She will be given a prescription for famotidine to take 20 mg daily. Signed By: Hira Troy M.D. <<Signature on File>>
== END 2020-10-31 13:13 | disposition home or self-care (01) ==
PROVIDERS: PCP Family Medicine; Visit Provider Internal Medicine Medical Oncology
DX: Z08 Encounter for follow-up examination after completed treatment for malignant neoplasm (principal); Z85.42 Personal history of malignant neoplasm of other parts of uterus; I10 Essential (primary) hypertension; E78.5 Hyperlipidemia, unspecified; J45.909 Unspecified asthma, uncomplicated; G47.33 Obstructive sleep apnea (adult) (pediatric); K21.9 Gastro-esophageal reflux disease without esophagitis; M47.9 Spondylosis, unspecified; F32.9 Major depressive disorder, single episode, unspecified; Z79.899 Other long term (current) drug therapy
CPT/HCPCS: 36591; 80053; 85025; 99214

== ENCOUNTER → 2020-11-20 09:00 | Outpatient (BNVA) | payer MEDICARE, MEDICAID, SELFPAY | PROVIDERS: PCP Family Medicine; Visit Provider Anesthesiology | DX: G89.29 Other chronic pain (principal); M54.42 Lumbago with sciatica, left side; M54.41 Lumbago with sciatica, right side; M48.062 Spinal stenosis, lumbar region with neurogenic claudication; M54.9 Dorsalgia, unspecified; Z79.891 Long term (current) use of opiate analgesic | CPT/HCPCS: 99213 ==

== ENCOUNTER → 2020-12-05 13:34 | Outpatient (BNVA) | payer MEDICARE, MEDICAID, SELFPAY | PROVIDERS: PCP Family Medicine; Visit Provider Internal Medicine | DX: M06.9 Rheumatoid arthritis, unspecified (principal); M54.40 Lumbago with sciatica, unspecified side; G89.29 Other chronic pain | CPT/HCPCS: 99213 ==

== ENCOUNTER 2021-01-03 10:56 | Outpatient (CLI) | payer MEDICARE, MEDICAID, SELFPAY | END 2021-01-03 10:57 | disposition home or self-care (01) | LOC: ONCMED 10:59 | PROVIDERS: PCP Family Medicine; Visit Provider Nurse Practitioner | DX: Z45.2 Encounter for adjustment and management of vascular access device (principal) | CPT/HCPCS: 96523 ==

== ENCOUNTER → 2021-01-21 09:33 | Outpatient (BNVA) | payer MEDICARE, MEDICAID, SELFPAY | PROVIDERS: PCP Family Medicine; Visit Provider Nurse Practitioner | DX: G89.29 Other chronic pain (principal); M48.062 Spinal stenosis, lumbar region with neurogenic claudication; M54.9 Dorsalgia, unspecified; M54.40 Lumbago with sciatica, unspecified side; M06.9 Rheumatoid arthritis, unspecified; M79.605 Pain in left leg; Z79.1 Long term (current) use of non-steroidal anti-inflammatories (NSAID); Z79.891 Long term (current) use of opiate analgesic | CPT/HCPCS: 99213 ==

== ENCOUNTER 2021-02-07 10:57 | Outpatient (CLI) | payer MEDICARE, MEDICAID, SELFPAY ==
[2021-02-07] MEDS: alteplase 1 mg/mL SDV 2 mL 2 MG INTRACATH (11:45)
== END 2021-02-07 10:58 | disposition home or self-care (01) ==
PROVIDERS: PCP Family Medicine; Visit Provider Nurse Practitioner
DX: C54.1 Malignant neoplasm of endometrium (principal); Z79.899 Other long term (current) drug therapy
CPT/HCPCS: 36593; 96374; J2997

== ENCOUNTER → 2021-02-13 09:42 | Outpatient (BNVA) | payer MEDICARE, MEDICAID, SELFPAY | PROVIDERS: PCP Family Medicine; Visit Provider Internal Medicine | DX: M06.9 Rheumatoid arthritis, unspecified (principal); Z79.1 Long term (current) use of non-steroidal anti-inflammatories (NSAID); Z79.899 Other long term (current) drug therapy | CPT/HCPCS: 36415; 80053; 85025; 85651; 86140 ==

== ENCOUNTER → 2021-02-18 10:02 | Outpatient (BNVA) | payer MEDICARE, MEDICAID, SELFPAY | PROVIDERS: PCP Family Medicine; Visit Provider Internal Medicine | DX: M06.9 Rheumatoid arthritis, unspecified (principal); Z79.899 Other long term (current) drug therapy | CPT/HCPCS: 99214 ==

== ENCOUNTER 2021-03-07 10:38 | Outpatient (CLI) | payer MEDICARE, MEDICAID, SELFPAY ==
[2021-03-07] MEDS: alteplase 1 mg/mL SDV 2 mL 2 MG IV (11:47)
== END 2021-03-07 10:39 | disposition home or self-care (01) ==
LOC: ONCMED 10:41
PROVIDERS: PCP Family Medicine; Visit Provider Nurse Practitioner
DX: M54.42 Lumbago with sciatica, left side (principal); G89.29 Other chronic pain; Z79.891 Long term (current) use of opiate analgesic
CPT/HCPCS: 36593; 96374; J2997

== ENCOUNTER → 2021-03-18 10:24 | Outpatient (BNVA) | payer MEDICARE, MEDICAID, SELFPAY | PROVIDERS: PCP Family Medicine; Visit Provider Nurse Practitioner | DX: G89.29 Other chronic pain (principal); M48.062 Spinal stenosis, lumbar region with neurogenic claudication; M54.40 Lumbago with sciatica, unspecified side; M06.9 Rheumatoid arthritis, unspecified; M25.551 Pain in right hip; M25.562 Pain in left knee; Z79.891 Long term (current) use of opiate analgesic | CPT/HCPCS: 99213 ==

== ENCOUNTER 2021-04-11 10:56 | Outpatient (CLI) | payer MEDICARE, MEDICAID, SELFPAY | END 2021-04-11 10:57 | disposition home or self-care (01) | PROVIDERS: PCP Family Medicine; Visit Provider Nurse Practitioner | DX: Z85.44 Personal history of malignant neoplasm of other female genital organs (principal); Z92.3 Personal history of irradiation; Z92.21 Personal history of antineoplastic chemotherapy | CPT/HCPCS: 36593; 96374; J2997 ==

== ENCOUNTER → 2021-04-24 08:42 | Outpatient (BNVA) | payer MEDICARE, MEDICAID, SELFPAY | PROVIDERS: PCP Family Medicine; Visit Provider Internal Medicine | DX: M06.9 Rheumatoid arthritis, unspecified (principal); Z79.899 Other long term (current) drug therapy | CPT/HCPCS: 36415; 80053; 85025 ==

== ENCOUNTER → 2021-05-01 08:19 | Outpatient (BNVA) | payer MEDICARE, MEDICAID, SELFPAY | PROVIDERS: PCP Family Medicine; Visit Provider Internal Medicine | DX: M06.9 Rheumatoid arthritis, unspecified (principal); Z79.899 Other long term (current) drug therapy | CPT/HCPCS: 99214 ==

== ENCOUNTER 2021-05-12 09:13 | Outpatient (CLI) | payer MEDICARE, MEDICAID, SELFPAY ==
[2021-05-12 10:01] LABS: Basophils % 0.5 %; Eosinophils # 0.1 10^3/uL (0.0-0.8); Eosinophils % 1.6 %; Hematocrit 40.8 % (37.0-47.0); Hemoglobin 13.1 g/dL (11.5-15.3); Lymphocytes # 0.9 10^3/uL (0.8-4.8); Lymphocytes % 10.2 %; Mean Corpuscular HGB Conc 32.1 g/dL (30.0-36.0); Mean Corpuscular Hemoglobin 30.8 pg (28.0-34.0); Mean Platelet Volume 9.7 fL (7.4-10.4); Monocytes # 0.8 10^3/uL (0.2-0.9); Monocytes % 9.3 %; Neutrophils % 78.1 %; Nucleated Red Blood Cells % 0 %; Platelet Count 284 10^3/cmm (130-400); Red Blood Count 4.25 10^6/uL (4.1-5.3); Red Cell Distribution Width 14.2 % (12.1-15.1); White Blood Count 8.7 10^3/uL (4.0-10.0)
[2021-05-12 10:37] LABS: Alanine Aminotransferase 20 U/L (0-33); Albumin Level 4.1 g/dL (3.5-5.2); Alkaline Phosphatase 96 IU/L (35-105); Anion Gap 14.3 (5-19); Aspartate Amino Transferase 14 U/L (0-32); Blood Urea Nitrogen 20 mg/dL (8-23); Calcium 9.3 mg/dL (8.5-10.5); Carbon Dioxide 30 mmol/L (22-29); Chloride 99 mmol/L (98-107); Globulin 3.5 g/dL (1.3-4.6); Glomerular Filtration Rate 83.5 mL/min (90-130); Glucose 99 mg/dL (65-115); Osmolality Calculated 291 mOsm/kg (285-295); Potassium 4.3 mmol/L (3.5-5.1); Sodium 139 mmol/L (136-145); Total Bilirubin 0.3 mg/dL (0.15-1.2); Total Protein 7.6 g/dL (6.6-8.7)
--- NOTE | 2021-05-12 15:52 | ONC FU_ITS ---
Dr. Troy Patient Follow-Up Note Patient: Mely Alicea Unit #: [id number]: 1955 Dicatated By: Hira Troy M.D.Date of Visit:May 12, 2021 Onc Med Follow-up/Prog Note Chief Complaint: Endometrial cancer. 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 She had presented to Dr. Tripathi with a 4-5 month history of postmenopausal bleeding. She was seen by Dr. Salvador and she was then found on transvaginal pelvic to have thickened endometrium measuring up to 2.8 cm associated with heterogeneously increased echotexture. The reported differential included hyperplasia, polyps, or malignancy. She underwent D&C on 06/02/2018. Pathology showed poorly to undifferentiated malignant neoplasm. 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 Further evaluation with chest CT on 07/26/2018 showed unchanged lingular 2.9 mm pleural nodule with benign etiology favored. There was unchanged right hepatic hemangioma measuring 3.0 cm and unchanged left upper pole renal cyst measuring 2.1 cm. The available records do not include any additional imaging studies. She had a screening colonoscopy on 07/27/2018. On 07/28/2018 she underwent robotic-assisted modified radical total laparoscopic hysterectomy, bilateral salpingo-oophorectomy, omentectomy, pelvic periaortic lymphadenectomy, sentinel node mapping, bilateral para-aortic and bilateral pelvic lymph node biopsies. Pathology showed grade 3 papillary serous adenocarcinoma which grossly measured 6.4 x 5.3 x 2.3 cm. The lesion was noted to be deeply invasive within the extreme fundus and upper and mid posterior uterine segment with extension greater than 60% of the myometrial wall. The deepest myometrial invasion was measured at 9 mm with the myometrial thickness at that point measuring 11 mm. There was no involvement in the uterine serosa or the cervix and there was no parametrial involvement. There was a metastatic tumor nodule on the right ovary which measured 0.5 x 0.4 cm. A total of 32 lymph nodes were sampled. There was involvement in 1 left obturator lymph node which measured greater than 2 mm. The remainder of the lymph nodes were negative. The peritoneal fluid cytology was reported to be positive. Given the lymph node involvement and positive peritoneal fluid cytology, she was recommended to undergo postoperative adjuvant chemotherapy and radiation, to include HDR implant. She began cycle 1 of carboplatin/paclitaxel chemotherapy on . She tolerated it with acceptable toxicity. She was able to continue with cycle 2 on 11/02/2018 and with cycle 3 on 11/23/2018. She was given Neulasta prophylactically with the 3rd cycle. She then stopped chemotherapy and began pelvic radiation on 12/22/2018. She completed treatment on 01/27/2019 to a total dose of 5040 cGy. She underwent HDR implant on 02/07/2019 and 02/14/2019, total dose 1200 cGy. She then continued with cycle 4 of chemotherapy on 03/21/2019, with cycle 5 on 04/19/2019, and with cycle 6 on 05/09/2019. She was then followed on observation/expectant management. Her other medical illnesses include hypertension, hyperlipidemia, asthma, obstructive sleep apnea, GERD, and degenerative arthritis. 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 She is a nonsmoker. INTERIM HISTORY: Surveillance CT scans on 04/24/2020 showed no evidence for metastatic disease in the chest, abdomen, or pelvis. A right lobe hepatic angioma appeared stable. At her follow-up visit on 04/30/2020 she appeared stable clinically and she continued on observation/expectant management. Her repeat CT scans on 10/28/2020 showed no evidence for recurrent or metastatic disease. She is seen for a followup visit. She has been feeling pretty good generally, though she says her energy is sometimes low. She is able to do light work. ECOG score is 1. Her appetite has been good. She has not had fever. She sometimes alternates between sweating and feeling cold at night. She has not had sore mouth or throat, and she does not complain of cough. She is short of breath with more strenuous effort. She does not complain of chest pain. She sometimes has acid reflux at night. She has no other GI or complaints. She has been having a lot of pain in her left sciatic/tailbone area, particularly when she is sitting or lying. She has joint pain with her rheumatoid arthritis, but that has improved with treatment. She does not complain of headache or dizziness, and she has no focal neurologic symptoms. Medications: Atorvastatin Calcium 1 (20 mg) Tablet Oral at bedtime, Diclofenac Sodium 1 (1 %) Cream Transdermal daily, Diclofenac Sodium 1 Tablet (of 50 mg) Capsule Oral q 12 hours PRN, FLUoxetine HCl 20 (20 mg) Capsule Oral daily, Furosemide 1 (40 mg) Tablet Oral daily PRN, Gabapentin 2 Capsule (of 400 mg) Oral b.i.d., Garlic 1 Capsule (of 1000 mg) Oral daily, Glucosamine 2 Capsule (of 2000 mg) Oral daily, Klor-Con 10 1 (10 meq) Tablet, controlled release Oral daily, Leflunomide 1 Tablet (of 10 mg) Oral daily, Lisinopril 1 Tablet (of 20 mg) Oral daily, Melatonin 2 Tablet (of 300 mcg) Oral at bedtime, Pantoprazole Sodium 1 Tablet (of 40 mg) Tablet, enteric coated Oral b.i.d., ROPINIRole HCl 3 Tablet (of 0.25 mg) Tablet Oral at bedtime Allergies: No Known Allergies. Vital Signs: Performed on May 12, 2021 12:04 Height - 63.00 in Weight - 257.4 lbs (HIGH) BSA - 2.15 sq.m BMI - 45.60 (HIGH) Temperature - 95.6 F (LOW) Pulse - 84 /min Respiration - 18 /min BP - 124/78 mm(hg) O2 Sat - 96 % Pain - 7 Fatigue - 6 Physical Examination: Constitutional - She looks pretty good generally, Eyes - Sclerae nonicteric. Conjunctivae clear, ENMT - No lesions noted in the oral cavity, Hematologic/Lymphatic - No cervical, clavicular, or axillary adenopathy, Respiratory - Lungs are clear with good air movement bilaterally, Cardiovascular - Heart rhythm is regular. There is no murmur, gallop, or rub noted, Abdomen - Moderately distended. Liver and spleen are not enlarged. There is no abdominal mass or ascites noted and there is no inguinal adenopathy, Extremities - No edema, Neurologic - No focal neurologic deficits noted. Lab/Imaging: Test performed on May 12, 2021 09:25 Sodium 139 mmol/L Potassium 4.3 mmol/L Chloride 99 mmol/L CO2 30 mmol/L Anion Gap 14.3 BUN 20 mg/dL Creatinine 0.7 mg/dL Cr Clearance (Est) 144.7500 mL/min eGFR 83.5 mL/min Glucose 99 mg/dL Osmolality - Calculated 291 mOsm/kg Calcium 9.3 mg/dL Protein, Total 7.6 g/dL Albumin 4.1 g/dL Globulin 3.5 g/dL Bilirubin, Total 0.3 mg/dL ALT (SGPT) 20 U/L AST (SGOT) 14 U/L Alkaline Phosphatase 96 IU/L WBC 8.7 10 3/uL RBC 4.25 10 6/uL HGB 13.1 g/dL HCT 40.8 % MCV 96.0 fl MCH 30.8 pg MCHC 32.1 g/dL RDW 14.2 % Platelet Count 284 10 3/cmm MPV 9.7 fL Neutrophils 6.80 10 3/uL Lymphocytes 0.9 10 3/uL Monocytes 0.8 10 3/uL Eosinophils 0.1 10 3/uL Basophils 0.0 10 3/uL Neutrophil % 78.1 % Lymphocyte % 10.2 % Monocyte % 9.3 % Eosinophil % 1.6 % Basophils % 0.5 % NRBC % 0 % Problem List: 1. Grade 3 papillary serous adenocarcinoma of the endometrium, stage IIIC1 (T3a, N1a, M0). 2. Hypertension. 3. Hyperlipidemia. 4. Asthma. 5. Obstructive sleep apnea. 6. GERD. 7. Degenerative arthritis/degenerative disease of the spine. 8. Depression. Problems Addressed with this Encounter and Plan: 1. 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 She underwent robotic-assisted modified radical total laparoscopic hysterectomy, bilateral salpingo-oophorectomy, omentectomy, pelvic periaortic lymphadenectomy, sentinel node mapping, bilateral para-aortic and bilateral pelvic lymph node biopsies on 07/28/2018. Pathology showed maximum endometrial invasion of 9 mm with myometrial thickness 11 mm, a metastatic nodule on the right ovary, involvement in 1/32 lymph nodes (left obturator node), and positive peritoneal fluid cytology. She underwent adjuvant chemotherapy with 6 cycles of carboplatin/paclitaxel from 10/11/2018 through 05/09/2019. Between chemotherapy cycles 3 and 4 she also underwent pelvic radiation followed by HDR implant, completed on 02/14/2019. Overall, she tolerated treatment well. She was then followed expectantly. During follow-up she had ongoing complaints of fatigue, but that did show gradual improvement. She has had persistent pain in the left sciatic/tailbone area. As a precaution, I am going to repeat a CT of the abdomen/pelvis. As long as does not show any obvious recurrence of the endometrial cancer, she can be managed symptomatically. She has a scheduled follow-up at the pain clinic later this week, which is fortuitous, as I think she could potentially benefit with a local injection. I will just plan a follow-up visit in 6 months. 2. She has a Port-A-Cath venous access device in place. It is no longer being used and it is no longer functional. As such, she will be referred to Dr. Hall to have it removed. Signed By: Hira Troy M.D. <<Signature on File>>
== END 2021-05-12 09:14 | disposition home or self-care (01) ==
LOC: ONCMED 09:15
PROVIDERS: PCP Family Medicine; Visit Provider Internal Medicine Medical Oncology
DX: C54.1 Malignant neoplasm of endometrium (principal); I10 Essential (primary) hypertension; E78.5 Hyperlipidemia, unspecified; J45.909 Unspecified asthma, uncomplicated; G47.33 Obstructive sleep apnea (adult) (pediatric); K21.9 Gastro-esophageal reflux disease without esophagitis; M47.9 Spondylosis, unspecified; F32.9 Major depressive disorder, single episode, unspecified; Z92.21 Personal history of antineoplastic chemotherapy; Z92.3 Personal history of irradiation; Z79.899 Other long term (current) drug therapy
CPT/HCPCS: 36415; 80053; 85025; 96523; 99214

== ENCOUNTER → 2021-05-15 08:35 | Outpatient (BNVA) | payer MEDICARE, MEDICAID, SELFPAY | PROVIDERS: PCP Family Medicine; Visit Provider Nurse Practitioner | DX: G89.29 Other chronic pain (principal); M54.42 Lumbago with sciatica, left side; M54.41 Lumbago with sciatica, right side; M48.062 Spinal stenosis, lumbar region with neurogenic claudication; M25.552 Pain in left hip; M06.9 Rheumatoid arthritis, unspecified; Z79.891 Long term (current) use of opiate analgesic | CPT/HCPCS: 99213 ==

== ENCOUNTER 2021-05-16 12:52 | Outpatient (CLI) | payer MEDICARE, MEDICAID, SELFPAY ==
--- NOTE | 2021-05-16 13:13 | CT_ITS ---
WS: [id number] CT ABDOMEN PELVIS TECHNIQUE: Contrast-enhanced CT of the abdomen and pelvis with coronal and sagittal reformatted image s. CLINICAL INFORMATION: MALIGNANT NEOPLASM OF ENDOMETRIUM,LOCALIZED SWELLING MASS,JUAN COMPARISON: CT October 28, 2020, April 24, 2020, and DLP: [id number] scans at [facility] use at least one of these dose optimization techniques: automated e xposure control; mA and/or kV adjustment per patient size (includes targeted exams where dose is matc hed to clinical indication); or iterative reconstruction. FINDINGS: Hepatomegaly. Diffuse fatty infiltration liver. Normal portal vein and splenic vein. Stable hemangiom a in the right hepatic lobe measuring 2.2 x 2.0 CM. Splenic granulomas. Normal GE junction. Adrenal g lands are normal. Normal pancreatic parenchymal enhancement. No hydronephrosis in either kidney. Stab le left renal cysts. Normal caliber abdominal aorta. Normal sigmoid colon. No evidence of high-grade small or large bowel obstruction. No abdominal or pelvic lymphadenopathy. No inguinal lymphadenopathy. Prior hysterectomy. Grade 1 anterolisthesis L4 on L5. Disc space narrowing L5-S1. Lung bases are well aerated. CT/CT abdomen pelvis w con* [id number] IMPRESSION: 1. No evidence of metastatic disease in the abdomen or pelvis. 2. Prior hysterectomy. 3. Hepatomegaly with diffuse fatty infiltration of the liver. 4. Stable cavernous hemangioma right hepatic lobe measuring 2.2 x 2.0 CM. 5. Stable left renal cysts. No hydronephrosis in either kidney. 6. No other significant changes from previous.
[2021-05-16] MEDS: iohexol 300 mg/mL 100 mL Btl IV (14:50)
== END 2021-05-16 12:53 | disposition home or self-care (01) ==
PROVIDERS: PCP Family Medicine; Visit Provider Internal Medicine Medical Oncology
DX: C54.1 Malignant neoplasm of endometrium (principal); R22.2 Localized swelling, mass and lump, trunk; Z90.710 Acquired absence of both cervix and uterus; Q61.02 Congenital multiple renal cysts; D18.09 Hemangioma of other sites; R16.0 Hepatomegaly, not elsewhere classified; K76.0 Fatty (change of) liver, not elsewhere classified
CPT/HCPCS: 74177; Q9967

== ENCOUNTER → 2021-05-29 11:01 | Outpatient (BNVA) | payer MEDICARE, MEDICAID, SELFPAY | PROVIDERS: PCP Family Medicine; Visit Provider Surgery | DX: C55 Malignant neoplasm of uterus, part unspecified (principal); Z20.822 Contact with and (suspected) exposure to COVID-19 | CPT/HCPCS: 87635 ==

== ENCOUNTER 2021-06-03 06:21 | Day surgery (SDC) | payer MEDICARE, MEDICAID, SELFPAY ==
[2021-06-02 13:49] VITALS: BMI 46.0
[2021-06-03] VITALS (7 sets, daily range): BP systolic 116–159; BP diastolic 73–89; PULSE 57–64; RESP 9–18; TEMP 36.1–36.4; O2SAT 95–100
[2021-06-03] MEDS: sodium chloride 0.9% 1,000 ML 30 ML IV (07:07)
[2021-06-03] MEDS: scopolamine 1.5 Patch 1 PATCH TRANSDERMA (07:09)
--- NOTE | 2021-06-03 07:37 | ANES.PREANE2 ---
Pre-Anesthetic Assessment Pre-Anesthetic Assessment: Height/Weight: Height 1.6 m Weight 117.934 kg Temp Pulse Resp BP Pulse Ox 96.9 F L 63 16 159/89 98 06/03/21 06:39 06/03/21 06:39 06/03/21 06:39 06/03/21 06:39 06/03/21 06:39 Preop Diagnosis: Port-A-Cath in place Proposed Procedure: Operation Date: 06/03/21 08:00 Proposed Procedures p Portacath Removal [id number] C55(Not Applicable) - Garret Hall MD Was Beta Fawad taken within 24 hours: N/A Was Clonidine taken within 24 hours: N/A Last intake: Intake Last Liquid Date 06/02/21 Last Liquid Time 20:00 Last Solid Date 06/02/21 Last Solid Time 20:00 Social: Social History: No alcohol and No tobacco Exam: Pre-Anes Outpt Exam: alert, oriented x 3, clear to auscultation bilaterally and regular rate & rhythm Airway: Submandibular: WNL Cervical ROM: WNL MP: 2 Dentition: Chipped CV/HEM: CV/HEM: HTN Metabolic: Metabolic: Hyperlipidemia and Morbid obesity Musc/skel: Musc/skel: Lower Back Pain, OA/DJD and RA Anesthetic Plan: ASA status: 3 Anesthesia: MAC Risk of > 500 ml blood loss (7ml/kg in children): No Meds/Allergies Current Medications: Current Medications Generic Name Dose Route Start Last Admin Trade Name Freq PRN Reason Stop Dose Admin Sodium Chloride 1,000 mls @ 30 ml s/hr 06/03/21 06:45 06/03/21 07:07 Sodium Chloride 0.9% IV 06/04/21 06:44 30 mls/hr .Q24H ERICA Administration PFSH Anesthesia PFSH: Medical History Acute back pain Acute bilateral low back pain with bilateral sciatica Chronic low back pain with sciatica Encounter for long-term (current) use of NSAIDs Encounter for long-term opiate analgesic use Instability of joint Lumbar stenosis with neurogenic claudication Surgical History Hx of abdominal hysterectomy Hx of knee surgery Hx of shoulder surgery Family History Other CAD (coronary artery disease) Cancer Hyperlipidemia Hypertension Social History Second hand smoke exposure: No Alcohol intake: never History of recent travel: No Data Anesthesia Cardiac Studies: No Data to Display
--- NOTE | 2021-06-03 08:03 | W.PM.OPSUD ---
Surgery/Procedure H&P Update DATE OF PROCEDURE: June 03, 2021 DATE H&P PERFORMED: 05/22/21 H&P UPDATE INFORMATION: I have reviewed H&P completed within last 30 days and I have examined patient prior to procedure PREOP DIAGNOSIS: Port-A-Cath in place PRIMARY INDICATION FOR PROCEDURE: The same PLANNED PROCEDURE: Operation Date: 06/03/21 08:00 Proposed Procedures p Portacath Removal [id number] C55(Not Applicable) - Garret Hall MD
--- NOTE | 2021-06-03 08:50 | PM.OP ---
Operative Report Date of procedure: June 03, 2021 Pre-op Diagnosis: Port-A-Cath in place Post-op diagnosis: same Procedure Done: Explantation of right upper chest Port-A-Cath Specimens removed/disposition: Right upper chest Port-A-Cath for gross pathology Surgeon: Garret Hall [employer] Supervisor: Mike Abdi Circulating nurse Amanda Epps Anesthesia: MAC (outdoor landscape architect will smart) Estimated blood loss (mL): 5 Condition: stable Disposition: same day Brief History: Undesired Port-A-Cath Procedure: planned procedure and destination after the procedure, all were in agreement.SCDs confirmed to be functioning, preoperative antibiotics administered per protocol, and beta daija protocol was confirmed, appropriate positioning of the patient was done by me. Prep and drape of the upper chest was done under the usual sterile technique,injection of lidocaine 2% at the site of the planned incision started by an transverse incision including the previous scar of the Port-A-Cath placement,at the right upper chest wall,the port was then explanted after taking down the Prolene sutures attaching the port to the, at this point the catheter was removed at the same time direct pressure was applied at the site of the right internal jugular vein stick to prevent bleeding. The entire port and the catheter was sent for gross pathology. Thorough irrigation of the Port-A-Cath cavity was done followed by hemostasis, pressure was sustained for at least 5 minutes to prevent bleeding from the stick site Closure using nylon 3/0 Vicryl sutures deep subdermal followed by 4-0 Monocryl then pressure dressing. Count was completed for instruments, needles and sponges, patient was then taken to the recovery area in stable condition I was present for the whole entire procedure
[2021-06-03] MEDS: lidocaine 2% INJ 20 mL 10 ML INJECTION (10:03)
--- NOTE | 2021-06-03 14:21 | ANE.PACU2 ---
Inpatient post-anesthesia follow up: Airway intact: Yes Vital signs: Temperature 97.6 F Pulse Rate 62 Respiratory Rate 17 Blood Pressure 127/73 Pulse Oximetry 96 Oxygen Delivery Me thod Room Air Oxygen Flow Rate Fraction of Inspir ed Oxygen Hydration adequate: Yes Nausea and vomiting: No Pain level: 2 Mental status: Baseline
== END 2021-06-03 09:45 | disposition home or self-care (01) ==
PROVIDERS: PCP Family Medicine; Visit Provider Surgery
PROC: (CPT 36589; principal; 2021-06-03 08:00)
DX: Z45.2 Encounter for adjustment and management of vascular access device (principal); I10 Essential (primary) hypertension; E78.5 Hyperlipidemia, unspecified; E66.01 Morbid (severe) obesity due to excess calories; Z68.42 Body mass index [BMI] 45.0-49.9, adult; Z82.49 Family history of ischemic heart disease and other diseases of the circulatory system
CPT/HCPCS: 36590; 88300; 96365; J0690; J2704; J3010; J7030

== ENCOUNTER → 2021-06-11 10:46 | Outpatient (BNVA) | payer MEDICARE, MEDICAID, SELFPAY | PROVIDERS: PCP Family Medicine; Visit Provider Internal Medicine | DX: M06.9 Rheumatoid arthritis, unspecified (principal); Z79.899 Other long term (current) drug therapy; Z79.891 Long term (current) use of opiate analgesic; Z13.220 Encounter for screening for lipoid disorders; I10 Essential (primary) hypertension | CPT/HCPCS: 36415; 80053; 80061; 83036; 85025; 86140 ==

== ENCOUNTER → 2021-07-30 09:51 | Outpatient (BNVA) | payer MEDICARE, MEDICAID, SELFPAY | PROVIDERS: PCP Family Medicine; Visit Provider Internal Medicine | DX: M05.9 Rheumatoid arthritis with rheumatoid factor, unspecified (principal); Z79.899 Other long term (current) drug therapy | CPT/HCPCS: 99214 ==

== ENCOUNTER → 2021-08-21 08:45 | Outpatient (BNVA) | payer MEDICARE, MEDICAID, SELFPAY | PROVIDERS: PCP Family Medicine; Visit Provider Anesthesiology | DX: G89.29 Other chronic pain (principal); M54.40 Lumbago with sciatica, unspecified side; M48.062 Spinal stenosis, lumbar region with neurogenic claudication; Z98.890 Other specified postprocedural states; Z79.891 Long term (current) use of opiate analgesic; Z79.899 Other long term (current) drug therapy | CPT/HCPCS: 99213 ==

== ENCOUNTER 2021-08-22 10:02 | Outpatient (CLI) | payer MEDICARE, MEDICAID, SELFPAY ==
--- NOTE | 2021-08-22 10:12 | MM_ITS ---
WS: [id number] BILATERAL DIGITAL SCREENING MAMMOGRAPHY WITH CAD CLINICAL INFORMATION: SCREENING HISTORY: Screening mammogram. No current complaints. COMPARISON: July 24, 2020 TECHNIQUE: Bilateral CC and MLO views. FINDINGS: Scattered fibroglandular densities bilaterally. Punctate and lucent calcifications. No suspicious foc al mass, asymmetry, calcifications, or architectural distortion. No evidence of malignancy. MM/[place] [id number] IMPRESSION: BI-RADS: 2-Benign FOLLOW UP: 1 Year Follow-up Recommend return to annual screening mammography.
== END 2021-08-22 10:03 | disposition home or self-care (01) ==
LOC: RADSHAW 10:07
PROVIDERS: PCP Family Medicine; Visit Provider Family Medicine
DX: Z12.31 Encounter for screening mammogram for malignant neoplasm of breast (principal)
CPT/HCPCS: 77067

== ENCOUNTER → 2021-09-24 13:49 | Outpatient (BNVA) | payer MEDICARE, MEDICAID, SELFPAY | PROVIDERS: PCP Family Medicine; Visit Provider Anesthesiology | DX: G89.29 Other chronic pain (principal); M54.40 Lumbago with sciatica, unspecified side; M48.062 Spinal stenosis, lumbar region with neurogenic claudication; Z79.891 Long term (current) use of opiate analgesic | CPT/HCPCS: 99213 ==

== ENCOUNTER → 2021-10-21 08:07 | Outpatient (BNVA) | payer MEDICARE, MEDICAID, SELFPAY | PROVIDERS: PCP Family Medicine; Visit Provider Internal Medicine | DX: Z79.899 Other long term (current) drug therapy (principal); M06.9 Rheumatoid arthritis, unspecified | CPT/HCPCS: 99214 ==

== ENCOUNTER 2021-11-10 11:14 | Outpatient (CLI) | payer MEDICARE, MEDICAID, SELFPAY ==
[2021-11-10 11:43] LABS: Basophils # 0.1 10^3/uL (0.0-0.1); Basophils % 0.9 %; Eosinophils # 0.1 10^3/uL (0.0-0.8); Hematocrit 41.1 % (37.0-47.0); Hemoglobin 13.1 g/dL (11.5-15.3); Lymphocytes # 0.9 10^3/uL (0.8-4.8); Lymphocytes % 14.1 %; Mean Corpuscular HGB Conc 31.9 g/dL (30.0-36.0); Mean Corpuscular Hemoglobin 29.6 pg (28.0-34.0); Mean Platelet Volume 9.9 fL (7.4-10.4); Monocytes # 0.7 10^3/uL (0.2-0.9); Monocytes % 11.6 %; Neutrophils # 4.53 10^3/uL (1.8-7.7); Neutrophils % 70.9 %; Nucleated Red Blood Cells % 0 %; Platelet Count 278 10^3/cmm (130-400); Red Blood Count 4.42 10^6/uL (4.1-5.3); Red Cell Distribution Width 13.9 % (12.1-15.1); White Blood Count 6.4 10^3/uL (4.0-10.0)
[2021-11-10 12:18] LABS: Alanine Aminotransferase 30 U/L (0-33); Albumin Level 4.2 g/dL (3.5-5.2); Alkaline Phosphatase 90 IU/L (35-105); Aspartate Amino Transferase 23 U/L (0-32); Blood Urea Nitrogen 15 mg/dL (8-23); Calcium 9.5 mg/dL (8.5-10.5); Carbon Dioxide 25 mmol/L (22-29); Chloride 103 mmol/L (98-107); Globulin 3.5 g/dL (1.3-4.6); Glomerular Filtration Rate 99.7 mL/min (90-130); Glucose 103 mg/dL (65-115); Osmolality Calculated 293 mOsm/kg (285-295); Sodium 141 mmol/L (136-145); Total Bilirubin 0.2 mg/dL (0.15-1.2); Total Protein 7.7 g/dL (6.6-8.7)
[2021-11-10 14:16] LABS: Anion Gap 16.9 (5-19); Potassium 3.9 mmol/L (3.5-5.1)
[2021-11-10 15:51] LABS: Thyroid Stimulating Hormone 0.73 uIU/mL (0.27-4.20)
--- NOTE | 2021-11-10 20:07 | ONC FU_ITS ---
Dr. Troy Patient Follow-Up Note Patient: Mely Alicea Unit #: [id number]: 1955 Dicatated By: Hira Troy M.D.Date of Visit:Nov 10, 2021 Onc Med Follow-up/Prog Note Chief Complaint: Endometrial cancer. 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 She had presented to Dr. Tripathi with a 4-5 month history of postmenopausal bleeding. She was seen by Dr. Salvador and she was then found on transvaginal pelvic to have thickened endometrium measuring up to 2.8 cm associated with heterogeneously increased echotexture. The reported differential included hyperplasia, polyps, or malignancy. She underwent D&C on 06/02/2018. Pathology showed poorly to undifferentiated malignant neoplasm. 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 Davenport. Further evaluation with chest CT on 07/26/2018 showed unchanged lingular 2.9 mm pleural nodule with benign etiology favored. There was unchanged right hepatic hemangioma measuring 3.0 cm and unchanged left upper pole renal cyst measuring 2.1 cm. The available records do not include any additional imaging studies. She had a screening colonoscopy on 07/27/2018. On 07/28/2018 she underwent robotic-assisted modified radical total laparoscopic hysterectomy, bilateral salpingo-oophorectomy, omentectomy, pelvic periaortic lymphadenectomy, sentinel node mapping, bilateral para-aortic and bilateral pelvic lymph node biopsies. Pathology showed grade 3 papillary serous adenocarcinoma which grossly measured 6.4 x 5.3 x 2.3 cm. The lesion was noted to be deeply invasive within the extreme fundus and upper and mid posterior uterine segment with extension greater than 60% of the myometrial wall. The deepest myometrial invasion was measured at 9 mm with the myometrial thickness at that point measuring 11 mm. There was no involvement in the uterine serosa or the cervix and there was no parametrial involvement. There was a metastatic tumor nodule on the right ovary which measured 0.5 x 0.4 cm. A total of 32 lymph nodes were sampled. There was involvement in 1 left obturator lymph node which measured greater than 2 mm. The remainder of the lymph nodes were negative. The peritoneal fluid cytology was reported to be positive. Given the lymph node involvement and positive peritoneal fluid cytology, she was recommended to undergo postoperative adjuvant chemotherapy and radiation, to include HDR implant. She began cycle 1 of carboplatin/paclitaxel chemotherapy on . She tolerated it with acceptable toxicity. She was able to continue with cycle 2 on 11/02/2018 and with cycle 3 on 11/23/2018. She was given Neulasta prophylactically with the 3rd cycle. She then stopped chemotherapy and began pelvic radiation on 12/22/2018. She completed treatment on 01/27/2019 to a total dose of 5040 cGy. She underwent HDR implant on 02/07/2019 and 02/14/2019, total dose 1200 cGy. She then continued with cycle 4 of chemotherapy on 03/21/2019, with cycle 5 on 04/19/2019, and with cycle 6 on 05/09/2019. She was then followed on observation/expectant management. Her other medical illnesses include hypertension, hyperlipidemia, asthma, obstructive sleep apnea, GERD, and degenerative arthritis. She is under the impression that she has rheumatoid arthritis, but that diagnosis is not supported in her medical records, including reports from her shoes salesperson. She is a nonsmoker. INTERIM HISTORY: Surveillance CT scans on 04/24/2020 showed no evidence for metastatic disease in the chest, abdomen, or pelvis. A right lobe hepatic angioma appeared stable. At her follow-up visit on 04/30/2020 she appeared stable clinically and she continued on observation/expectant management. Her repeat CT scans on 10/28/2020 showed no evidence for recurrent or metastatic disease. Her surveillance CT of the abdomen/pelvis on 05/16/2021 showed hepatomegaly with diffuse fatty infiltration of the liver. A cavernous hemangioma in the right hepatic lobe measuring 2.2 x 2.0 cm appeared stable. There was no evidence of recurrent or metastatic disease. She is seen for a followup visit. Her main complaint is that she has no energy. She says she would be okay if she had a little energy. She is still doing some light work at home, but she gives out very quickly. Her ECOG score is 1. Appetite is variable. She has gained weight. She has not had fever. She has hot flashes and sweating both during the daytime and at night. She has not had sore mouth or throat. Her breathing is pretty good, though she does get short of breath with activity. She does not complain of cough, and she has not been having chest pain. She has no GI/ complaints other than occasional heartburn. She has pain in her back and in her knees. She complains of having severe pain in her calves at night. She does not complain of headache or dizziness. Her hands sometimes go to sleep. She has no other focal neurologic symptoms. Medications: Atorvastatin Calcium 1 (20 mg) Tablet Oral at bedtime, Diclofenac Sodium 1 (1 %) Cream Transdermal daily, Diclofenac Sodium 1 Tablet (of 50 mg) Capsule Oral q 12 hours PRN, FLUoxetine HCl 20 (20 mg) Capsule Oral daily, Furosemide 1 (40 mg) Tablet Oral daily PRN, Gabapentin 2 Capsule (of 400 mg) Oral b.i.d., Glucosamine 2 Capsule (of 2000 mg) Oral daily, Klor-Con 10 1 (10 meq) Tablet, controlled release Oral daily, Leflunomide 1 Tablet (of 10 mg) Oral daily, Lisinopril 1 Tablet (of 20 mg) Oral daily, ROPINIRole HCl 3 Tablet (of 0.25 mg) Tablet Oral at bedtime Allergies: No Known Allergies. Vital Signs: Performed on Nov 10, 2021 15:06 Height - 63.00 in Weight - 266.0 lbs (HIGH) BSA - 2.18 sq.m BMI - 47.12 (HIGH) Temperature - 96.8 F (LOW) Pulse - 94 /min Respiration - 18 /min BP - 129/78 mm(hg) O2 Sat - 96 % Pain - 7 Fatigue - 9 Physical Examination: Constitutional - She looks pretty good generally, Eyes - Sclerae nonicteric. Conjunctivae clear, ENMT - No lesions noted in the oral cavity, Hematologic/Lymphatic - No cervical, clavicular, or axillary adenopathy, Respiratory - Lungs are clear with good air movement bilaterally, Cardiovascular - Heart rhythm is regular. There is no murmur, gallop, or rub noted, Abdomen - Moderately distended. Liver and spleen are not enlarged. There is no abdominal mass or ascites noted and there is no inguinal adenopathy, Extremities - Mild lower extremity edema, Neurologic - No focal neurologic deficits noted. Lab/Imaging: Test performed on Nov 10, 2021 11:33 Sodium 141 mmol/L TSH 0.73 uIU/mL Potassium 3.9 mmol/L Chloride 103 mmol/L CO2 25 mmol/L Anion Gap 16.9 BUN 15 mg/dL Creatinine 0.6 mg/dL Cr Clearance (Est) 168.8800 mL/min eGFR 99.7 mL/min Glucose 103 mg/dL Osmolality - Calculated 293 mOsm/kg Calcium 9.5 mg/dL Protein, Total 7.7 g/dL Albumin 4.2 g/dL Globulin 3.5 g/dL Bilirubin, Total 0.2 mg/dL ALT (SGPT) 30 U/L AST (SGOT) 23 U/L Alkaline Phosphatase 90 IU/L WBC 6.4 10 3/uL RBC 4.42 10 6/uL HGB 13.1 g/dL HCT 41.1 % MCV 93.0 fl MCH 29.6 pg MCHC 31.9 g/dL RDW 13.9 % Platelet Count 278 10 3/cmm MPV 9.9 fL Neutrophils 4.53 10 3/uL Lymphocytes 0.9 10 3/uL Monocytes 0.7 10 3/uL Eosinophils 0.1 10 3/uL Basophils 0.1 10 3/uL Neutrophil % 70.9 % Lymphocyte % 14.1 % Monocyte % 11.6 % Eosinophil % 2.0 % Basophils % 0.9 % NRBC % 0 % Problem List: 1. Grade 3 papillary serous adenocarcinoma of the endometrium, stage IIIC1 (T3a, N1a, M0). 2. Hypertension. 3. Hyperlipidemia. 4. Asthma. 5. Obstructive sleep apnea. 6. GERD. 7. Degenerative arthritis/degenerative disease of the spine. 8. Depression. 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 She underwent robotic-assisted modified radical total laparoscopic hysterectomy, bilateral salpingo-oophorectomy, omentectomy, pelvic periaortic lymphadenectomy, sentinel node mapping, bilateral para-aortic and bilateral pelvic lymph node biopsies on 07/28/2018. Pathology showed maximum endometrial invasion of 9 mm with myometrial thickness 11 mm, a metastatic nodule on the right ovary, involvement in 1/32 lymph nodes (left obturator node), and positive peritoneal fluid cytology. She underwent adjuvant chemotherapy with 6 cycles of carboplatin/paclitaxel from 10/11/2018 through 05/09/2019. Between chemotherapy cycles 3 and 4 she also underwent pelvic radiation followed by HDR implant, completed on 02/14/2019. Overall, she tolerated treatment well. She was then followed expectantly. During follow-up she has had ongoing complaints of fatigue, and she has some residual neuropathy. Overall, her clinical status appears stable. She will be scheduled for surveillance CT scans, as it has been a 6-month interval since her last imaging. In the absence of any evidence of recurrence of the endometrial cancer, she will continue on expectant management. I will tentatively plan a follow-up visit in 6 months. Signed By: Hira Troy M.D. <<Signature on File>>
== END 2021-11-10 11:15 | disposition home or self-care (01) ==
LOC: ONCMED 11:17
PROVIDERS: PCP Family Medicine; Visit Provider Internal Medicine Medical Oncology
DX: Z85.89 Personal history of malignant neoplasm of other organs and systems (principal); I10 Essential (primary) hypertension; E78.5 Hyperlipidemia, unspecified; J45.909 Unspecified asthma, uncomplicated; K21.9 Gastro-esophageal reflux disease without esophagitis; G47.33 Obstructive sleep apnea (adult) (pediatric); F32.A Depression, unspecified; Z79.899 Other long term (current) drug therapy
CPT/HCPCS: 36415; 80053; 84443; 85025; 99214

== ENCOUNTER 2021-11-19 07:50 | Outpatient (CLI) | payer MEDICARE, MEDICAID, SELFPAY ==
--- NOTE | 2021-11-19 07:59 | CT_ITS ---
WS: [id number] CT ABDOMEN AND PELVIS WITH CONTRAST HISTORY: ENDOMETRIAL CANCER TECHNIQUE: Imaging performed of the abdomen and pelvis with IV contrast. Single phase imaging of the abdomen. Coronal and sagittal reformats are submitted. All CT scans at [facility] use at [address] one of these dose optimization techniques: automated exposure control; mA and/or kV adjustment per patient size (includes targeted exams where dose is matched to clinical indication); or iterative re construction. IV CONTRAST: Omnipaque 300; 95 mL IV. Oral contrast: Yes. DLP: 1304.47 mGy.cm COMPARISON: 10/28/2020 and 05/16/2021 Lower thorax: Lung bases are clear. Heart is normal size. No hiatal hernia. Mildly enlarged liver. Mild hepatic steatosis. Nodular enhancement of the hypoattenuating lesion post erior to the RIGHT hepatic vein measures 1.9 x 1.8 cm. No change since the prior study. Consistent wi th a hemangioma. No edema additional lesions within the liver. Portal vein is normal. Gallbladder and spleen are negative. There are granulomas within the spleen. Normal pancreas and normal adrenal glan ds. RIGHT kidney is normal. Several small stable cysts within the LEFT kidney. The largest in the low er pole measures 2.7 x 2.5 cm. Lymphadenopathy: None. Free fluid: None. GI tract: Normally distended stomach. No small bowel obstruction. Mild fecal retention throughout the colon. Normal appendix. There are a few diverticula in the distal colon with no acute diverticulitis . Abdominal wall: Unremarkable abdominal wall. No hernia. Pelvis: No free fluid or adenopathy within the pelvis. Prior hysterectomy. Bones: No osteoblastic or osteolytic bone disease. CT/CT abdomen pelvis w con* [id number] IMPRESSION: 1. No evidence for metastatic disease within the abdomen or pelvis. No ascites . 2. Stable RIGHT hepatic hemangioma. 3. Stable LEFT renal cyst. 4. Prior hysterectomy.
[2021-11-19] MEDS: iohexol 300 mg/mL 50 mL Btl PO (08:30)
[2021-11-19] MEDS: iohexol 300 mg/mL 100 mL Btl IV (08:30)
== END 2021-11-19 07:51 | disposition home or self-care (01) ==
LOC: RAD 07:51
PROVIDERS: PCP Family Medicine; Visit Provider Internal Medicine Medical Oncology
DX: C54.1 Malignant neoplasm of endometrium (principal); D18.09 Hemangioma of other sites; Q61.01 Congenital single renal cyst; Z90.710 Acquired absence of both cervix and uterus
CPT/HCPCS: 74177

== ENCOUNTER 2022-01-01 10:37 | Outpatient (CLI) | payer MEDICARE, MEDICAID, SELFPAY ==
--- NOTE | 2022-01-01 11:00 | MR_ITS ---
WS: [id number] MRI LUMBAR SPINE NONCONTRAST HISTORY: M54.40 - Lumbago with sciatica, unspecified side COMPARISON: 02/02/2018 TECHNIQUE: Sagittal and axial multisequence imaging is submitted. Very mild anterolisthesis of by 2 mm of L3 and L4. Moderate degenerative disc disease L5-S1. No shana ow edema or fracture. The remaining posterior alignment is normal. Conus terminates normally at L1-2 disc level. L1-L2: Mild facet arthritis. No stenosis. L2-L3: Moderate bilateral facet joint arthritis and ligamentum flavum hypertrophy. Osteophyte from th e LEFT facet extends into the posterior lateral thecal sac with displacement and contact on the nerve roots. New since the prior study. Very mild LEFT subarticular recess stenosis. Mild central stenosis . L3-L4: Mild annular disc bulging with a shallow LEFT foraminal disc protrusion. There is severe ligam entum flavum hypertrophy encroaching upon the midline. Facet joint arthritis. Moderate central and bi lateral subarticular recess stenosis has progressed slightly since the prior study. No high-grade toni nosis. L4-L5: Diffuse annular disc bulging. Severe ligamentum flavum hypertrophy encroaching towards the mid line and facet arthritis. Small LEFT paracentral disc protrusion contacts the thecal sac. Severe cent ral, bilateral subarticular recess and mild bilateral foraminal stenosis. Greater encroachment and na rrowing of the LEFT subarticular recess and encroachment upon L5. L5-S1: Diffuse annular disc bulge contacts the S1 nerve roots bilaterally. There is also osteophytic ridging. Large posterior laminectomy defect. Mild facet joint arthritis. Mild central and bilateral s ubarticular recess stenosis. Mild bilateral foraminal stenosis. Disc is bulging into the foramina and there is contact on the undersurface of the L5 nerve roots. LEFT renal cyst is incompletely visualized. Normal size aorta. MR/MR lumbar spine wo con* [id number] IMPRESSION: 1. Progression of facet and ligamentum flavum hypertrophy since 1999 8T and. 2. Severe central, bilateral subarticular recess and mild foraminal stenosis a t L4-5 as described above. Most significant encroachment upon the LEFT L5 trave rsing nerve root due to a focal disc protrusion. 3. Annular disc bulging at L5-S1 contacts the S1 nerve roots bilaterally. Mild central and bilateral subarticular recess stenosis. 4. Laminectomy defect at L5-S1. 5. Mild bilateral foraminal stenosis at L5-S1. The disc bulging is contacting the undersurface of the exiting L5 nerve roots bilaterally. 6. Moderate central and bilateral subarticular recess stenosis at L3-4 with pr ogression since the prior study. 7. LEFT facet osteophyte encroaches into the posterior lateral LEFT thecal sac at L2-3. Osteophyte does contact and displace the nerve roots in the thecal sa c on the LEFT. Mild central stenosis at L2-3.
== END 2022-01-01 10:38 | disposition home or self-care (01) ==
PROVIDERS: PCP Family Medicine; Visit Provider Anesthesiology
DX: M54.40 Lumbago with sciatica, unspecified side (principal); G89.29 Other chronic pain; M48.061 Spinal stenosis, lumbar region without neurogenic claudication; M48.07 Spinal stenosis, lumbosacral region; M25.78 Osteophyte, vertebrae
CPT/HCPCS: 72148

== ENCOUNTER → 2022-01-27 08:46 | Outpatient (BNVA) | payer MEDICARE, MEDICAID, SELFPAY | PROVIDERS: PCP Family Medicine; Visit Provider Internal Medicine | DX: M06.9 Rheumatoid arthritis, unspecified (principal); M54.50 Low back pain, unspecified; Z79.899 Other long term (current) drug therapy | CPT/HCPCS: 36415; 80053; 82550; 85025; 85651; 86140; 99214 ==

== ENCOUNTER 2022-02-03 13:32 | Outpatient (CLI) | payer MEDICARE, MEDICAID, SELFPAY ==
[2022-02-03 14:15] LABS: Alanine Aminotransferase 20 U/L (0-33); Albumin Level 4.2 g/dL (3.5-5.2); Alkaline Phosphatase 91 IU/L (35-105); Aspartate Amino Transferase 16 U/L (0-32); Blood Urea Nitrogen 20 mg/dL (8-23); Calcium 8.7 mg/dL (8.5-10.5); Carbon Dioxide 29 mmol/L (22-29); Chloride 98 mmol/L (98-107); Creatine Phosphokinase 211 U/L (26-192); Globulin 3.4 g/dL (1.3-4.6); Glomerular Filtration Rate 71.5 mL/min (90-130); Glucose 138 mg/dL (65-115); Osmolality Calculated 289 mOsm/kg (285-295); Phosphorus 3.4 mg/dL (2.5-4.5); Sodium 137 mmol/L (136-145); Total Bilirubin 0.2 mg/dL (0.15-1.2); Total Protein 7.6 g/dL (6.6-8.7)
[2022-02-03 14:26] LABS: Anion Gap 13.8 (5-19); Potassium 3.8 mmol/L (3.5-5.1)
[2022-02-03 14:36] LABS: Add Urine Microscopic? YES; Bilirubin Urine Neg (Negative); Blood Urine 2+ (Negative); Glucose Urine UA Norm (Normal); Ketones Urine Negative (Negative); Leukocyte Esterase Urine Negative (Negative); Nitrate Urine Negative (Negative); Protein Urine Neg (Negative); Urine Appearance Clear (CLEAR); Urine Color Yellow (Yellow); Urobilinogen Urine Norm (Negative); pH Urine 5 (5-7)
[2022-02-03 14:37] LABS: Add Urine Culture? Yes; Bacteria Urine 2+ /hpf; Mucus Urine 2+ /hpf; Squamous Epithelial Cell Urine 0-4 /hpf (0-5); WBC Urine 0-4 /hpf (0-5)
== END 2022-02-03 13:33 | disposition home or self-care (01) ==
LOC: LAB 13:39
PROVIDERS: PCP Family Medicine; Visit Provider Internal Medicine
DX: M06.9 Rheumatoid arthritis, unspecified (principal); M54.50 Low back pain, unspecified
CPT/HCPCS: 36415; 80053; 81001; 82550; 84100

== ENCOUNTER → 2022-02-10 07:50 | Outpatient (BNVA) | payer MEDICARE, MEDICAID, SELFPAY | PROVIDERS: PCP Family Medicine; Referring Provider Family Medicine; Visit Provider Orthopaedic Surgery | DX: M48.062 Spinal stenosis, lumbar region with neurogenic claudication (principal); Z98.890 Other specified postprocedural states | CPT/HCPCS: 72110; 99204 ==

== ENCOUNTER 2022-02-25 09:50 | Inpatient (IN) | payer MEDICARE, MEDICAID, SELFPAY ==
[2022-02-23 09:05] VITALS: BMI 44.6
--- NOTE | 2022-02-23 09:12 | ECG_ITS ---
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 Measurements Intervals [place] Rate: 80 P: 47 [place]: 182 QRS: 16 QRSD: 90 T: 9 QT: 411 QTc: 477 Interpretive Statements SINUS RHYTHM No previous ECG available for comparison Electronically Signed On 02-23-2022 18:23:47 CDT by Rashaad Hernandez M.D. [email or web address]
[2022-02-23 09:54] LABS: Basophils % 0.3 %; Eosinophils # 0.1 10^3/uL (0.0-0.8); Eosinophils % 1.9 %; Hematocrit 39.2 % (37.0-47.0); Hemoglobin 12.7 g/dL (11.5-15.3); Lymphocytes # 0.8 10^3/uL (0.8-4.8); Lymphocytes % 13.3 %; Mean Corpuscular HGB Conc 32.4 g/dL (30.0-36.0); Mean Corpuscular Hemoglobin 29.3 pg (28.0-34.0); Mean Corpuscular Volume 90.5 fl (81-99); Mean Platelet Volume 9.9 fL (7.4-10.4); Monocytes # 0.6 10^3/uL (0.2-0.9); Neutrophils # 4.26 10^3/uL (1.8-7.7); Neutrophils % 73.8 %; Nucleated Red Blood Cells % 0 %; Platelet Count 276 10^3/cmm (130-400); Red Blood Count 4.33 10^6/uL (4.1-5.3); Red Cell Distribution Width 13.3 % (12.1-15.1); White Blood Count 5.8 10^3/uL (4.0-10.0)
[2022-02-23 12:12] LABS: Blood Urea Nitrogen 15 mg/dL (8-23); Calcium 8.9 mg/dL (8.5-10.5); Carbon Dioxide 27 mmol/L (22-29); Chloride 101 mmol/L (98-107); Glomerular Filtration Rate 83.2 mL/min (90-130); Glucose 95 mg/dL (65-115); Osmolality Calculated 295 mOsm/kg (285-295); Sodium 142 mmol/L (136-145)
[2022-02-23 12:19] LABS: Anion Gap 17.5 (5-19); Potassium 3.5 mmol/L (3.5-5.1)
--- NOTE | 2022-02-23 15:34 | P.ANESASSM_ITS ---
Pre-Anesthetic Assessment Height/Weight: Height 1.6 m Weight 114.305 kg Preop Diagnosis: Lumbar Stenosis w/Neurogenic Claudication, DDD Lumbar Operation Date: 02/25/22 11:20 Proposed Procedures p Lumbar Fusion L3-pelvis [id number](Not Applicable) - Gregory Hart DO s Lumbar Spine Decompression L3/4 L4/5 L5/S1 [id number]/M48.062(Not Applicable) - Gregory Hart DO Familial anesthetic complications: PONV Was Beta Fawad taken within 24 hours: N/A Was Clonidine taken within 24 hours: N/A Social No alcohol and No tobacco Exam alert, oriented x 3, clear to auscultation bilaterally and regular rate & rhythm Airway Submandibular: within normal limits Cervical ROM: within normal limits Mallampati: Class II Dentition: chipped Pulmonary None reported CV/HEM Hypertension Chronic Renal Insufficiency Hepatic None reported GI Gastroesophageal Reflux Disease and Hiatal Hernia Poorly controlled reflux Metabolic Morbid Obesity Musc/skel Lower Back Pain, Osteoarthritis/DJD and Rheumatoid Arthritis Hx of uterine cancer prior port now removed per patient Lumbar stenosis with neurogenic claudication Neuropsych None reported Anesthetic Plan ASA status: 3 (67 year old female with rheumatoid arthritis, chronic back pain, morbid obesity, and hx of uterine cancer ) Anesthesia: Anesthesia Evaluation and General Other: We discussed risk and benefits of general anesthesia including PONV, sore throat (sometimes severe), corneal abrasion, positioning and peripheral nerve injuries, life threatening allergic reaction, post operative ICU admission requiring prolonged intubation, aspiration, stroke, heart attack, , and rare incidences of recall. Patient consents to proceed with general anesthesia. Risk of > 500 ml blood loss (7ml/kg in children): No Medications/Allergies Home Medications Medication Instructions Recorded Confirmed Last Taken Type antiarthritic combination no.2 900 900 mg PO DAILY tab 09/27/19 02/23/22 06/02/21 History mg tablet (glucosamine-chondroitin) furosemide 40 mg tablet (Lasix) 40 mg PO DAILY 09/27/19 02/23/22 06/02/21 History potassium chloride 10 mEq 10 meq PO DAILY 09/27/19 02/23/22 06/02/21 History tablet,extended release (Klor-Con) ropinirole 0.25 mg tablet 0.75 mg PO .QHS tab 09/27/19 02/23/22 06/02/21 History trazodone 50 mg tablet 25 mg PO .QHS tab 09/27/19 02/23/22 06/02/21 History atorvastatin 20 mg tablet (Lipitor) 20 mg PO DAILY 02/18/21 02/23/22 06/02/21 History coenzyme Q10 10 mg capsule (Co 10 mg PO DAILY 02/18/21 02/23/22 06/02/21 History Q-10) famotidine 20 mg tablet 20 mg PO DAILY 02/18/21 02/23/22 06/02/21 History lisinopril 10 mg tablet 10 mg PO DAILY 02/18/21 02/23/22 06/02/21 History fluoxetine 20 mg capsule 20 mg PO DAILY 08/21/21 02/23/22 Unknown History morphine 15 mg immediate release 15 mg PO QID PRN 30 Days #120 tab 09/24/21 02/23/22 Unknown Rx tablet tizanidine 4 mg tablet 4 mg PO .QHS PRN #30 tab 09/24/21 02/23/22 Unknown Rx leflunomide 20 mg tablet 20 mg PO DAILY #30 tab 12/22/21 02/23/22 Unknown Rx diclofenac sodium 1 % topical gel 2 g TOPICAL QID PRN 02/23/22 02/23/22 Unknown History prednisone 5 mg tablet See Rx Instructions PO DAILY PRN 02/23/22 02/23/22 Unknown History Allergies Allergy/AdvReac Type Severity Reaction Status Date / Time No Known Allergies Allergy Verified 02/23/22 08:58 [facility] Anesthesia Medical History Acute back pain Acute bilateral low back pain with bilateral sciatica Chronic low back pain with sciatica Encounter for long-term (current) use of NSAIDs Encounter for long-term opiate analgesic use Instability of joint Lumbar stenosis with neurogenic claudication Surgical History History of back surgery Hx of abdominal hysterectomy Hx of knee surgery Hx of shoulder surgery Family History Other CAD (coronary artery disease) Cancer Hyperlipidemia Hypertension Social History (Reviewed 02/23/22 @ 15:34 by ARUN Sanchez Smoking and tobacco status: never smoked Second hand smoke exposure: No Alcohol intake: current Alcohol intake frequency: holidays/special occasions only Alcohol type: beer History of recent travel: No Data Anesthesia : 02/23/22 09:33 02/23/22 09:33 Short CBC 02/23/22 Range/Units 09:33 WBC 5.8 (4.0-10.0) 10^3/uL Hgb 12.7 (11.5-15.3) g/dL Hct 39.2 (37.0-47.0) % MCV 90.5 (81-99) fl Plt Count 276 (130-400) 10^3/cmm Neut % (Auto) 73.8 % Neut # (Auto) 4.26 (1.8-7.7) 10^3/uL [facility] 02/23/22 09:33 Sodium 142 Potassium 3.5 Chloride 101 Carbon Dioxide 27 BUN 15 Creatinine 0.7 Glucose 95 Calcium 8.9 Blood Bank 02/23/22 09:33 Blood Type A Positive Rho(D) Type Positive Antibody Screen Negative Cardiac Studies: No Data to Display
[2022-02-25] VITALS (24 sets, daily range): BP systolic 133–185; BP diastolic 68–114; PULSE 78–98; RESP 12–20; TEMP 36.1–38.2; O2SAT 95–100; BMI 48.4
--- NOTE | 2022-02-25 | SCC_ITS ---
Procedure done: 1. L5/S1 Interbody fusion with posterolateral fusion 2. Instrumentation L3-S1 3. Lumbopelvic instrumentation 4. L3-pelvis fusion 5. Cage at L5/S1 6. Laminectomy L3/4 with partial facetectomies 7. Laminectomy L4/5 with partial facetectomies 8. Laminectomy L5/S1 with partial facetectomies 9. Use of computer navigation / stereotactic for spine 10. Bone marrow aspirate from right iliac wing 11. use of autograft from same incision 12. allograf 2 seconds of fluoroscopic guidance, for a cumulative dose of 81.6 mGy, was provided to Dr. Hart by the radiology department. C-arm images of the lumbar spine were saved for the patient's permanent record. [facility]
--- NOTE | 2022-02-25 | XR_ITS ---
WS: [id number] Lumbar spine, C-arm fluoroscopy, 02/25/2022 Clinical Data: L3-pelvis fusion w decompression Comparison: None. Findings: Dr. Hart performed a posterior lumbar fusion. XR/XR lumbar spine 2-3V* [id number] Impression: Posterior lumbar fusion.
[2022-02-25] MEDS: sodium chloride 0.9% 1,000 ML 30 ML IV (10:17)
[2022-02-25] MEDS: scopolamine 1.5 Patch 1 PATCH TRANSDERMA (10:19)
--- NOTE | 2022-02-25 10:47 | ANES.PAUD2 ---
Pre-Anesthetic Update Pre-Anesthetic Assessment: Date of Surgery/Procedure: 02/25/22 Preop Diagnosis: Lumbar Stenosis w/Neurogenic Claudication, DDD Lumbar Proposed Procedure: Operation Date: 02/25/22 11:20 Proposed Procedures p Lumbar Fusion L3-pelvis [id number](Not Applicable) - Gregory Ashkan Hailey, DO s Lumbar Spine Decompression L3/4 L4/5 L5/S1 [id number]/M48.062(Not Applicable) - Gregory Hart, DO Any changes to Pre-Anesthetic Assessment?: No Last Intake: Intake Last Liquid Date 02/24/22 Last Liquid Time 18:30 Last Solid Date 02/24/22 Last Solid Time 18:30 Labs Last 48hrs: BMP 02/23/22 09:33 Sodium 142 Potassium 3.5 Chloride 101 Carbon Dioxide 27 BUN 15 Creatinine 0.7 Glucose 95 Calcium 8.9 Blood Bank 02/23/22 09:33 Blood Type A Positive Rho(D) Type Positive Vitals: Temperature 98.2 F 02/25/22 10:04 Pulse Rate 85 02/25/22 10:04 Respiratory Rate 16 02/25/22 10:04 Blood Pressure 136/85 02/25/22 10:04 Blood Pressure Hgazal n 102 02/25/22 10:04 Pulse Oximetry 95 02/25/22 10:04 Oxygen Delivery Me thod 02/25/22 10:04 Exam: Pre-Anes Outpt Exam: alert, oriented x 3, clear to auscultation bilaterally and regular rate & rhythm Cardiac Studies: No Data to Display
--- NOTE | 2022-02-25 11:05 | W.PM.OPSUD ---
Surgery/Procedure H&P Update DATE OF PROCEDURE: February 25, 2022 DATE H&P PERFORMED: 02/10/22 H&P UPDATE INFORMATION: I have reviewed H&P completed within last 30 days, I have examined patient prior to procedure and No changes to prior documentation PREOP DIAGNOSIS: Lumbar Stenosis w/Neurogenic Claudication, DDD Lumbar PLANNED PROCEDURE: Operation Date: 02/25/22 11:20 Proposed Procedures p Lumbar Fusion L3-pelvis [id number](Not Applicable) - DO rivera Brambila Lumbar Spine Decompression L3/4 L4/5 L5/S1 [id number]/M48.062(Not Applicable) - Gregory Hart DO
[2022-02-25] MEDS: ceFAZolin 2,000 MG in sodium chloride 0.9% (plus) 50 ML 100 MG IV ×2 (11:19→17:52)
[2022-02-25] MEDS: heparin, porcine 1,000 unit/mL INJ 10 mL 10000 UNIT IRRIGATION (12:12)
[2022-02-25] MEDS: vancomycin 1,000 MG SDV 1000 MG XX (12:12)
[2022-02-25] MEDS: acetaminophen 1,000 MG/100 ML PIGGYBACK 400 MG IV (12:51)
--- NOTE | 2022-02-25 15:41 | PM.OP ---
Operative Report Date of procedure: February 25, 2022 Pre-op diagnosis: Preop Diagnosis Lumbar Stenosis w/Neurogenic Claudication, DDD Lumbar Post-op diagnosis: same Procedure done: 1. L5/S1 Interbody fusion with posterolateral fusion 2. Instrumentation L3-S1 3. Lumbopelvic instrumentation 4. L3-pelvis fusion 5. Cage at L5/S1 6. Laminectomy L3/4 with partial facetectomies 7. Laminectomy L4/5 with partial facetectomies 8. Laminectomy L5/S1 with partial facetectomies 9. Use of computer navigation / stereotactic for spine 10. Bone marrow aspirate from right iliac wing 11. use of autograft from same incision 12. allograft Surgeon: Gregory Hart Corporate Director: Francesco Clark Estimated blood loss (mL): 900 Procedure: 1. L5/S1 Interbody fusion with posterolateral fusion 2. Instrumentation L3-S1 3. Lumbopelvic instrumentation 4. L3-pelvis fusion 5. Cage at L5/S1 6. Laminectomy L3/4 with partial facetectomies 7. Laminectomy L4/5 with partial facetectomies 8. Laminectomy L5/S1 with partial facetectomies 9. Use of computer navigation / stereotactic for spine 10. Bone marrow aspirate from right iliac wing 11. use of autograft from same incision 12. allograft Patient is brought to the operative suite. After undergoing anesthesia, the patient had neuro monitoring attached. Patient was then placed in the prone position on the Naun table. All areas of impingement were well-padded. Patient was then prepped and draped in the normal sterile fashion. Skin incision was then made over the L3 to sacrum. Subperiosteal dissection was made out to the transverse processes of L3 bilaterally, L4 bilaterally and L5 bilaterally and out to the sacral ala's bilaterally. Once the exposure was complete attention was then brought to obtaining bone marrow aspirate. The [employer] bone marrow aspirate kit was used to aspirate bone marrow aspirate. This was done by using the sharp probe to open up the bone. Aspiration was performed and then the blunt probe was then used to dissect down to through the bone tunnel. An aspirating well drawn back a millimeter approximately 20 cc of bone marrow aspirate was used. Admixed with the allograft and autograft bone that will be used. Next attention was brought to placing the fiducials for the computer navigation. 2 pins were placed into the right iliac wing. Later be removed in the case. They are not permanent. The attention was then brought to attaching the fiducial to these pins. Then the C-arm was brought in and the information was loaded from serum and the computer in order to facilitate using computer navigation to place the pedicle and the iliac screws. The technique for placing the pedicle screws was to use a drill followed by the gearshift probe linked to computer navigation Followed by the ball probe to feel the superior inferior medial lateral doyle of the pedicles. Then placement of the screws. Was done at each pedicle linked to computer navigation. Screws were placed at L L3 bilaterally, L4 bilaterally, L5 bilaterally and 1 bilaterally. Next attention was brought to placing the sacral ala iliac screws into the pelvis. This was done by using the gearshift probe linked to the computer navigation. The gearshift probe started in the sacrum passed through the ala across the iliosacral joints and then into the iliac wing in the column of bone. Next the pedicle feeler was used to ensure that the doyle of the iliac crest were not breached. Then a tap was used under computer navigation and then a 80 mm 8.5 mm Jose screws placed. This process was repeated bilaterally they were 2 screws were placed into the iliac wing and these are the pelvic screws. For the lumbopelvic fixation. Next attention was brought to performing the laminectomy ofL3. This was done using the high-speed bur Kerrisons and curettes. Once the lamina was removed and then attention was brought to performing a partial facetectomy on the contralateral side. This was done again using the high-speed bur curettes and Kerrisons. The ligamentum flavum was taken down bilaterally from L3 to L4 bilaterally Attention was then brought to the facet on the ipsilateral side. The facet was taken down. The L4 nerve was decompressed as it passed around the L4 pedicle. The laminectomy was done for purposes of decompressing the nerves. This process was done bilaterally. The L3 nerves were also palpated as they went out through the L3-4 foramen bilaterally. Next attention was brought to performing the laminectomy ofL4. This was done using the high-speed bur Kerrisons and curettes. Once the lamina was removed and then attention was brought to performing a partial facetectomy on the contralateral side. This was done again using the high-speed bur curettes and Kerrisons. The ligamentum flavum was taken down bilaterally from L4 to L5. Attention was then brought to the facet on the ipsilateral side. The facet was taken down. The L5 nerve was decompressed as it passed around the L5 pedicle. The laminectomy was done for purposes of decompressing the nerves. This process was done bilaterally. The L4 nerves were also palpated as they went out through the L4/5 foramen bilaterally. Next attention was brought to performing the laminectomy ofL5. This was done using the high-speed bur Kerrisons and curettes. Once the lamina was removed and then attention was brought to performing a partial facetectomy on the contralateral side. This was done again using the high-speed bur curettes and Kerrisons. The ligamentum flavum was taken down bilaterally from L5 to S1. Attention was then brought to the facet on the ipsilateral side. The facet was taken down. The S1 nerve was decompressed as it passed around the S1 pedicle. The laminectomy was done for purposes of decompressing the nerves as well as placement of the cage. The L5 nerve was identified as it traversed through the L5/S1 foramen. The thecal sac was identified and retracted. The L5/S1 disc base was identified. Using a knife the disc base was opened. And then sequential edin were placed. The first shaver was a 6 and the last shaver was a 7. Using a pituitary and down going curette the endplates were scraped and disc material was removed from the space. Once adequate decompression of the disc base was felt to be had. Osteoamp sponge was packed into the anterior aspect of the disc base. Then a size 7 cage from [place] was placed after packing osteoamp into the cage. While placing the cage the thecal sac and s1 nerve was protected. C arm was used to ensure that the cages placed in the appropriate position. Attention was then brought to attaching the rods to the screws placed in the L3 bilaterally, L4 bilaterally, L5 bilaterally, S1 bilaterally and then this was attached onto the iliac screws. Further lumbopelvic fixation. Caps were torqued into position. Locking the construct in place. Wound was copiously irrigated and then attention was brought to decorticating the facets and transverse processes laterally. Bone that was taken down from the lamina was used along with osteoamp fibers and sponges were packed into the lateral gutters along the facet joints. This was done bilaterally. Wound was then closed in a layered fashion starting with the thoracolumbar fascia. 0-vicryl was used the sub cutaneous tissue was closed with 2-0 vicryl and skin with 4-0 monocryl. Glue was then used to seal the skin and a steril dressing was applied. Patient was then placed in the supine position. The endotracheal tube was removed and patient was transferred to the PACU in stable condition.
--- NOTE | 2022-02-25 16:09 | ANE.PACU2 ---
Inpatient post-anesthesia follow up: Airway intact: Yes Vital signs: Temperature 96.9 F Pulse Rate 83 Respiratory Rate 20 Blood Pressure 161/111 Pulse Oximetry 100 Oxygen Delivery Me thod Simple Mask Oxygen Flow Rate 8 Fraction of Inspir ed Oxygen Hydration adequate: Yes Nausea and vomiting: No Pain level: 3 Mental status: Baseline
--- NOTE | 2022-02-25 16:14 | ANE.PACU2 ---
Inpatient post-anesthesia follow up: Vital signs: Temperature 96.9 F Pulse Rate 80 Respiratory Rate 20 Blood Pressure 179/102 Pulse Oximetry 100 Oxygen Delivery Me thod Simple Mask Oxygen Flow Rate 8 Fraction of Inspir ed Oxygen
[2022-02-25] MEDS: fentaNYL 50 mcg/mL INJ 2mL IVP (16:15)
--- NOTE | 2022-02-25 16:28 | SUR.PHASEI ---
15:45 RECEIVED PATIENT FROM OR STAFF.RESPONDS TO VERBAL. ROM AND SENSATION X 4 EXTREMITIES. WARM BLANKETS APPLIED.PAIN MEDICATION OFFERED.PATIENT DECLINED. 16:15 PATIENT WITH C/O BACK PAIN .MEDICATED FOR PAIN.
--- NOTE | 2022-02-25 16:46 | SUR.PHASEI ---
16:45 ART LINE IN LEFT RADIAL DC'ED. MANUAL PRESSURE HELD FOR 5 MINUTES AND PRESSURE DRESSING APPLIED, NO BLEEDING NOTED.
[2022-02-25] MEDS: lactated ringers 1,000 ML 90 ML IV (17:52)
[2022-02-25] MEDS: ketorolac 30 mg/mL INJ IVP (17:52)
[2022-02-25] MEDS: trazodone 50 mg Tablet 25 MG PO (20:40)
[2022-02-25] MEDS: tizanidine 4 mg Tablet PO (20:40)
[2022-02-25] MEDS: ropinirole 0.25 mg Tablet 0.75 MG PO (20:40)
[2022-02-25] MEDS: docusate sodium 100 mg Capsule PO (20:41)
[2022-02-25] MEDS: HYDROcodone-acetaminophen 5-325 mg Tablet PO (22:14)
[2022-02-26] VITALS: BP 165/91; PULSE 78; RESP 15; TEMP 38.1; O2SAT 96
[2022-02-26] MEDS: ceFAZolin 2,000 MG in sodium chloride 0.9% (plus) 50 ML 100 MG IV ×2 (03:46→10:28)
[2022-02-26] MEDS: HYDROcodone-acetaminophen 5-325 mg Tablet PO ×3 (03:46→11:58)
[2022-02-26] MEDS: lactated ringers 1,000 ML 90 ML IV (03:56)
[2022-02-26 03:57] VITALS: BP 149/88; PULSE 84; RESP 18; O2SAT 96
[2022-02-26 04:38] VITALS: BP 132/80; PULSE 80; RESP 13; TEMP 38.1; O2SAT 92
--- NOTE | 2022-02-26 06:06 | ANE.PACU2 ---
Inpatient post-anesthesia follow up: Airway intact: Yes Vital signs: Temperature 100.5 F Pulse Rate 80 Respiratory Rate 13 Blood Pressure 132/80 Pulse Oximetry 92 Oxygen Delivery Me thod Nasal Cannula Oxygen Flow Rate 1 Fraction of Inspir ed Oxygen 8 Hydration adequate: Yes Nausea and vomiting: No Pain level: 1 Mental status: Baseline
[2022-02-26] MEDS: fluoxetine 20 mg Capsule PO (07:53)
[2022-02-26] MEDS: lisinopril 10 mg Tablet PO (07:53)
[2022-02-26] MEDS: potassium chloride ER 10 mEq Tablet PO (07:53)
[2022-02-26] MEDS: docusate sodium 100 mg Capsule PO (07:53)
[2022-02-26] MEDS: famotidine 20 mg Tablet PO (07:54)
[2022-02-26] MEDS: FUROsemide 40 mg Tablet PO (07:54)
[2022-02-26] MEDS: atorvastatin 40 mg Tablet 20 MG PO (07:54)
[2022-02-26 08:28] VITALS: BP 122/77; PULSE 80; RESP 17; TEMP 36.7; O2SAT 96
--- NOTE | 2022-02-26 09:33 | PM.PN ---
Subjective Subjective: POD 1 Patient resting comfortably. Reports mild back pain states her leg pain is much improved. Denies any chest pain, shortness of breath or headaches. She has been mobilizing to the restroom she is had a bowel movement. She is anxious to be discharged home. Vitals/I&O/Wt Last Vital Signs Temp 98.1 F 02/26/22 08:28 Pulse 80 02/26/22 08:28 Resp 17 02/26/22 08:28 BP 122/77 02/26/22 08:28 Pulse Ox 96 02/26/22 08:28 02/25/22 02/26/22 02/26/22 22:59 06:59 14:59 Intake Total 3740 / 3890 1076 / 4966 Output Total 1750 / 1750 450 / 2200 250 / 250 Balance 1989 626 / 2766 -250 / -250 Weight last 48 hrs Weight 273 lb 3.2 oz Physical Exam Narrative: Patient presents alert and oriented x3 with a good general appearance normal mood and affect. Normal coordination normal stability. Mild tenderness around the incisional site with the incision appear to be clean and dry. No signs of erythema or drainage. No signs of infection. Patient denies any fevers or chills. 5/5 motor strength both lower extremities with negative straight leg raise bilaterally. Calves are supple no medial thigh tenderness. Pulses are 2+ at the dorsalis pedis and posterior tibial region. Good capillary refill throughout normal sensation light touch both lower extremities. Urinary Catheter Management: Vargas Latex: Cath Placed During This Visit: yes, but has since been removed by the nurse Reason for Continuing Indwelling Catheter: Decision to DC Catheter Urinary Catheter Date of Insertion: 02/25/22 Urinary Catheter Time of Insertion: 11:40 Date Urinary Catheter Removed: 02/26/22 Time Urinary Catheter Discontinued: 08:38 Data : 02/23/22 09:33 02/23/22 09:33 A&P Assessment and plan (1) Status post lumbar spinal fusion: Patient mobilizing in the room. We will have physical therapy work with mobilization. We will discontinue Vargas catheter and Hemovac drain. Continue to encourage incentive spirometry at home. We will see her back in the office in 1 week's time if she is stable later today will discharge home. Status: Acute Attestations Medical Necessity Statement*: Discharge home later today if stable. Coding Level of Care Code Acute Cellophane Bag Machine Operator for Chg Fwd Diagnoses Status post lumbar spinal fusion Z98.1
--- NOTE | 2022-02-26 10:13 | PC.CHAP ---
Pastoral Care Encounter/Spiritual Assessment Type of Contact [] Declined audiology assistant visit [] Patient/Family/Request visit [] Outpatient visit [] Follow-up visit [] Physician referral [] Code/Alert [x] Routine visit [] Staff referral [] Actively dying [] Patient sleeping [] Family support [] [] Out of room [] Palliative care [] [x] Receiving care in room [] Pre-surgical visit [] Trauma [] Long length of stay [] ICU visit [] Other: Relational/Emotional Strength [x] Patient feels connected with others/family/visitors/staff [] Distress [] Loneliness/isolation [] Abandonment Spirituality of Patient [x] Person of Samantha [] Attends Evangelical of their Samantha [x] Believes in Prayer [] Reads Bible or Worship materials [] There are Spiritual issues to be addressed Process Project Engineer Interventions [x] Prayer [x] Active listening [x] Non-anxious presence [x] Spiritual/emotional support [] Crisis/trauma care [x] Spiritual counseling [] Bereavement support [] Provided bereavement packet [] Provided Bible/devotional materials [] Provided toy/stuffed animal, coloring book to patient or family member [] Provided Communion [] Anointing/[place] [] Salvation [x] Completed spiritual assessment [] Other: Impact on Illness or Injury [] Angry [] Fearful [x] Anxious [] Often cries [] Exhaustion [] Unable to work [] Unable to attend judaism [] Unable to walk/stand [] Unable to read [] Unable to drive [] Unable to eat/drink [] Unable to sleep [] Unable to be with family [] Patient intubated [] Other: Summary had a proceeduer on uper back feeling better has a good attitude wel being going home Time spent with patient 10 mins
--- NOTE | 2022-02-26 10:52 | PC.NURSE ---
Drain removed from right lower back. Patient tolerated well.
[2022-02-26 12:53] VITALS: BP 122/77; PULSE 80; RESP 17; TEMP 36.7; O2SAT 96
--- NOTE | 2022-02-26 12:54 | PC.NURSE ---
Discharge Note Patient discharged to home via private vehicle accompanied by family member. Discharge instructions reviewed with patient and/or containers sales representative. Mobile pharmacy medications and/or prescriptions provided. Belongings/home medications returned.
--- NOTE | 2022-02-28 10:14 | PM.DCS ---
Discharge Providers Date of Admission: 02/25/22 09:50 Date of Discharge: February 26, 2022 Attending Provider at Admission: Gregory Hart DO Attending Provider at Discharge: Gregory Hart DO Primary Care Provider: Garcia Tripathi MD Diagnoses at Discharge Discharge Diagnosis (1) Status post lumbar spinal fusion: Status: Acute Reason for Visit Reason for Visit: L3-PELVIS FUSSION W/DECOMPRESSION OF L3/4 L4/5 L5/ Hospital Course Hospital Course Uneventful Physical Exam Urinary Catheter Management: Vargas Latex: Cath Placed During This Visit: yes, but has since been removed by the nurse Reason for Continuing Indwelling Catheter: Decision to DC Catheter Urinary Catheter Date of Insertion: 02/25/22 Urinary Catheter Time of Insertion: 11:40 Date Urinary Catheter Removed: 02/26/22 Time Urinary Catheter Discontinued: 08:38 Discharge Data Studies Completed and Pending Completed Studies During Hospitalization Category Date Time Status XR lumbar spine 2-3V* [id number] Routine Exams 02/25/22 Completed Radiology Impressions Lumbar Spine X-Ray 02/25/22 00:00 Impression: Posterior lumbar fusion. Laboratory Results WBC 5.8 10^3/uL (4.0-10.0) 02/23/22 09:33 RBC 4.33 10^6/uL (4.1-5.3) 02/23/22 09:33 Hgb 12.7 g/dL (11.5-15.3) 02/23/22 09:33 Hct 39.2 % (37.0-47.0) 02/23/22 09:33 MCV 90.5 fl (81-99) 02/23/22 09:33 MCH 29.3 pg (28.0-34.0) 02/23/22 09:33 MCHC 32.4 g/dL (30.0-36.0) 02/23/22 09:33 RDW 13.3 % (12.1-15.1) 02/23/22 09:33 Plt Count 276 10^3/cmm (130-400) 02/23/22 09:33 MPV 9.9 fL (7.4-10.4) 02/23/22 09:33 Neut % (Auto) 73.8 % 02/23/22 09:33 Lymph % (Auto) 13.3 % 02/23/22 09:33 [place] % (Auto) 10.0 % 02/23/22 09:33 Eos % (Auto) 1.9 % 02/23/22 09:33 Baso % (Auto) 0.3 % 02/23/22 09:33 Neut # (Auto) 4.26 10^3/uL (1.8-7.7) 02/23/22 09:33 Lymph # (Auto) 0.8 10^3/uL (0.8-4.8) 02/23/22 09:33 [place] # (Auto) 0.6 10^3/uL (0.2-0.9) 02/23/22 09:33 Eos # (Auto) 0.1 10^3/uL (0.0-0.8) 02/23/22 09:33 Baso # (Auto) 0.0 10^3/uL (0.0-0.1) 02/23/22 09:33 Nucleated RBC % (auto) 0 % 02/23/22 09: Nucleated RBCs # 0.0 /100WBC 02/23/22 09:33 Sodium 142 mmol/L (136-145) 02/23/22 09:33 Potassium 3.5 mmol/L (3.5-5.1) 02/23/22 09:33 Chloride 101 mmol/L (98-107) 02/23/22 09:33 Carbon Dioxide 27 mmol/L (22-29) 02/23/22 09:33 Anion Gap 17.5 (5-19) 02/23/22 09:33 BUN 15 mg/dL (8-23) 02/23/22 09:33 Creatinine 0.7 mg/dL (0.5-0.9) 02/23/22 09:33 GFR Calculation 83.2 mL/min (90-130) L 02/23/22 09:33 Glucose 95 mg/dL (65-115) 02/23/22 09:33 Calculated Osmolality 295 mOsm/kg (285-295) 02/23/22 09:33 Calcium 8.9 mg/dL (8.5-10.5) 02/23/22 09:33 Blood Type A Positive 02/23/22 09:33 Rho(D) Type Positive 02/23/22 09:33 Antibody Screen Negative 02/23/22 09:33 Vitals Last Vital Signs Temp 98.1 F 07/14/22 12:53 Pulse 80 02/26/22 12:53 Resp 17 02/26/22 12:53 BP 122/77 02/26/22 12:53 Pulse Ox 96 02/26/22 12:53 Discharge Plan Discharge Patient Disposition: Home Condition: Stable Prescriptions: New hydrocodone-acetaminophen 5-325 mg Tablet 1 - 2 tab PO Q4H PRN (Reason: Moderate To Severe Pain) Qty: 30 0RF Continued ropinirole 0.25 mg tablet 0.75 mg PO .QHS 0RF trazodone 50 mg tablet 25 mg PO .QHS 0RF potassium chloride [Klor-Con 10] 10 mEq tablet extended release 10 meq PO DAILY 0RF furosemide [Lasix] 40 mg tablet 40 mg PO DAILY 0RF glucosamine-chondroitin 900 mg tablet 900 mg PO DAILY 0RF coenzyme Q10 [Co Q-10] 10 mg capsule 10 mg PO DAILY 0RF famotidine 20 mg tablet 20 mg PO DAILY 0RF atorvastatin [Lipitor] 20 mg tablet 20 mg PO DAILY 0RF lisinopril 10 mg tablet 10 mg PO DAILY 0RF fluoxetine 20 mg capsule 20 mg PO DAILY 0RF morphine 15 mg tablet 15 mg PO QID PRN (Reason: Pain) 30 Days Qty: 120 0RF Rx Instructions: fill on or after 10/23/21 tizanidine 4 mg tablet 4 mg PO .QHS PRN (Reason: muscle spasticity) Qty: 30 1RF leflunomide 20 mg tablet 20 mg PO DAILY Qty: 30 3RF prednisone 5 mg tablet See Rx Instructions PO DAILY PRN (Reason: arthritic pain) 0RF Rx Instructions: 20mg po qday x 5 days, then 15mg po qday x 5 days , then 10mg po qday x 5 days, then 5mg po qday PO daily; diclofenac sodium 1 % gel 2 g topical QID PRN (Reason: arthritic pain) 0RF Rx Instructions: apply to single elbow, wrist or hand; for hand includes palm/fingers/back of hand Discharge Orders: Discharge Order (Routine); Ordered 02/26/22 Ordered By: Francesco Clark Referrals: Gregory Hart DO [Physician] - 03/05/22 10:15 am (You have a follow up appointment with teresa BURR on March 05 at 10:15AM If you are unable to keep this appointment please contact providers office) Discharge Diet: Advance as tolerated Discharge Activity: Limit activity as instructed Patient Instructions: Hydrocodone/Acetaminophen (By mouth), Lumbar Spinal Fusion (GEN), Opioid Safety Activity Restrictions/Additional Instructions: Thank you for choosing [facility] for your care! The following is a list of instructions, from your provider, to follow upon your discharge to ensure you have the optimal recovery from your recent injury or surgery. Follow-up care is a melissa part of your treatment and safety. Be sure to make and go to all appointments and call your doctor if you are having problems. If you do not already have a follow-up appointment made, call Dr. Hart's] office in the next 1-3 days to make follow up appointment for 1 weeks at [phone]. It is also a good idea to know your test results and keep a list of the medicines you take. Medications will be prescribed for you at your provider's discretion. These medications are to be used as instructed; if they are taken more often that prescribed they will not be refilled early and in most cases will not be refilled at all. > When a refill is needed, you should contact kelley juares 2-3 business days before your prescription runs out. Medications will NOT be refilled by airport operations duty manager providers after hours! > Many pain medications contain Tylenol (Acetaminophen). Do not consume more than 4,000 mg of Tylenol per day in total with any combination of medications. > Pain medications can cause constipation. Please use an over the counter stool softener as directed, while taking pain medications. Consult your local pharmacist with questions or recommendations on stool softeners. If constipation persists, contact our office or your primary care provider. > While under our care, you are not to receive pain medications or other controlled substances from any other provider unless our office is notified and approves. Any attempts to do so will result in refusal to prescribe any further pain medications and possible dismissal from our practice. ? Walking is essential for the healing process after surgery. We would like you to slowly advance your walking. This should be done on relatively flat clear ground (inside or out) or can be done on a treadmill. Remember this goal does not have to happen all at once, slowly increase your distance and duration. This can be broken into more more than one walk per day as tolerated. Patients who walk as directed after surgery rarely require Physical Therapy. In the unlikely event this issue arises your provider will direct hospital staff to make the appropriate arrangements. ? No lifting over 5 pounds {a gallon of milk) or bending/twisting until further notice. Each of these activities places an unnecessary amount of stress onto the body and can impede the delicate healing process. > Instead of bending at the waist, keep your back straight and bend at the knees. > Instead of twisting your torso, keep your back straight and turn your entire body with your feet. ? You may sleep in any position which makes you comfortable. Many patients find comfort sleeping in a reclining chair. It is not abnormal to have difficulty sleeping for the first several weeks following your surgery. We recommend trying Benadry! or Tylenol PM as directed to help with your sleeping difficulties. Both medications are over the counter and available without prescription. ? NO SMOKING!!! Smoking dramatically increases the probability of developing postoperative wound infections. ? Common complaints after lumbar and/or thoracic spine surgery include, but are not limited to: numbness and/or tingling in the legs, pain around the incision and surrounding tissues, muscle spasms, or stiffness of the middle to low back. Contact our office if these symptoms persist or if an acute change occurs. ? No driving for the first 3-5days, and not while taking narcotics until seen at your follow-up appointment and cleared. There are no restrictions for riding on short trips, however if you take a longer trip, arrangements should be made to make regular stops to get out of the vehicle and stretch . ? Swelling is an unfortunate event that will take place with any surgery and is the primary source of your postoperative discomfort. While walking and regular approved activities helps control inflammation, there are additional steps you can take to minimize swelling. > Place ice over the surgical site and surrounding tissue for twenty minutes, followed by applying a low/medium heat (heating pad) for an additional twenty minutes every 1-2 hours as needed for painrelief. > You may use of over the counter anti-inflammatory medications (Ibuprofen, Motrin, Aleve, Advil, etc) as directed on the package label. These types of medicines will significantly reduce the amount of discomfort you experience after surgery from swelling. It should be noted that if you have and allergy to any of these medications, or a history of ulcers or kidney disease you should consult you primary care provider prior to starting these medications. Discharge Attestations Time Spent in Discharge Care*: less than 30 min Quality Metrics Clinical Quality Measures [ No reported AMI, CVA or VTE this stay] Coding Level of Care Code Acute Chg FW OR note Diagnoses Status post lumbar spinal fusion Z98.1
== END 2022-02-26 12:54 | disposition home or self-care (01) | DRG 455 ==
LOC: OR 09:50 → MEDSURG 15:15
PROVIDERS: Anesthesiology; Admitting Provider Orthopaedic Surgery; PCP Family Medicine; Visit Provider Orthopaedic Surgery
PROC: 0SG30AJ Fusion of Lumbosacral Joint with Interbody Fusion Device, Posterior Approach, Anterior Column, Open Approach (ICD-10-PCS; principal; 2022-02-25 11:10)
PROC: 0SG30AJ Fusion of Lumbosacral Joint with Interbody Fusion Device, Posterior Approach, Anterior Column, Open Approach (ICD-10-PCS; CPT 63005; 2022-02-25 11:10)
DX: M51.16 Intervertebral disc disorders with radiculopathy, lumbar region (principal); M48.062 Spinal stenosis, lumbar region with neurogenic claudication; Z79.891 Long term (current) use of opiate analgesic
CPT/HCPCS: 36415; 51702; 72100; 76000; 80048; 85025; 86850; 86900; 93005; 97116; 97161; C1713; J0330; J1100; J1644; J1885; J2250; J2405; J2704; J3010; J3370; J3490; J7030; P9041

== ENCOUNTER → 2022-03-05 10:04 | Outpatient (BNVA) | payer MEDICARE, MEDICAID, SELFPAY | PROVIDERS: PCP Family Medicine; Visit Provider Physician Assistant | DX: Z47.89 Encounter for other orthopedic aftercare (principal); Z98.890 Other specified postprocedural states; Z98.1 Arthrodesis status | CPT/HCPCS: 72100; 99024 ==

== ENCOUNTER → 2022-03-12 09:56 | Outpatient (BNVA) | payer MEDICARE, MEDICAID, SELFPAY | PROVIDERS: PCP Family Medicine; Visit Provider Physician Assistant | DX: Z47.89 Encounter for other orthopedic aftercare (principal); Z98.1 Arthrodesis status | CPT/HCPCS: 99024 ==

== ENCOUNTER → 2022-03-19 10:04 | Outpatient (BNVA) | payer MEDICARE, MEDICAID, SELFPAY | PROVIDERS: PCP Family Medicine; Visit Provider Physician Assistant | DX: Z47.89 Encounter for other orthopedic aftercare (principal); Z98.1 Arthrodesis status | CPT/HCPCS: 99024 ==

== ENCOUNTER → 2022-04-16 09:54 | Outpatient (BNVA) | payer MEDICARE, MEDICAID, SELFPAY | PROVIDERS: PCP Family Medicine; Visit Provider Physician Assistant | DX: Z98.1 Arthrodesis status (principal); Z47.89 Encounter for other orthopedic aftercare | CPT/HCPCS: 72100; 99024 ==

== ENCOUNTER → 2022-04-28 14:13 | Outpatient (BNVA) | payer MEDICARE, MEDICAID, SELFPAY | PROVIDERS: PCP Family Medicine; Visit Provider Internal Medicine | DX: M05.9 Rheumatoid arthritis with rheumatoid factor, unspecified (principal); Z79.899 Other long term (current) drug therapy | CPT/HCPCS: 36415; 80053; 82550; 85025; 85651; 86140; 99213; 99214 ==

== ENCOUNTER → 2022-05-21 08:56 | Outpatient (BNVA) | payer MEDICARE, MEDICAID, SELFPAY | PROVIDERS: PCP Family Medicine; Visit Provider Physician Assistant | DX: M17.0 Bilateral primary osteoarthritis of knee (principal); Z47.89 Encounter for other orthopedic aftercare; Z98.1 Arthrodesis status | CPT/HCPCS: 72100; 73560; 73565; 99213; 99214 ==

== ENCOUNTER 2022-07-01 13:20 | Outpatient (CLI) | payer MEDICARE, MEDICAID, SELFPAY ==
--- NOTE | 2022-07-01 13:26 | XR_ITS ---
WS: [id number] Exam: XR chest 2V* [id number] Date/Time of Exam: 07/01/2022 1:28 PM Reason For Exam: Cough Comparison 09/27/2018. The lungs are clear and fully expanded. Unremarkable cardiomediastinal silhouet te. No pleural effusions. Bony elements are intact. XR/XR chest 2V* [id number] IMPRESSION: 1. No acute cardiopulmonary finding.
== END 2022-07-01 13:21 | disposition home or self-care (01) ==
LOC: RAD 13:22
PROVIDERS: PCP Family Medicine; Visit Provider Family Medicine
DX: R05.9 Cough, unspecified (principal)
CPT/HCPCS: 71046

== ENCOUNTER → 2022-09-01 14:15 | Outpatient (BNVA) | payer MEDICARE, MEDICAID, SELFPAY | PROVIDERS: PCP Family Medicine; Visit Provider Physician Assistant | DX: M17.0 Bilateral primary osteoarthritis of knee (principal); Z98.1 Arthrodesis status | CPT/HCPCS: 20610; 73560; 73565; 99213 ==

== ENCOUNTER → 2022-09-08 08:53 | Outpatient (BNVA) | payer MEDICARE, MEDICAID, SELFPAY | PROVIDERS: PCP Family Medicine; Visit Provider Physician Assistant | DX: M17.0 Bilateral primary osteoarthritis of knee (principal) | CPT/HCPCS: 20610; 99213; J7326 ==

== ENCOUNTER 2022-10-02 08:39 | Oncology outpatient (recurring) (ONCR) | payer MEDICARE, MEDICAID, SELFPAY ==
[2022-10-02 10:57] LABS: Basophils # 0.1 10^3/uL (0.0-0.1); Basophils % 0.9 %; Eosinophils # 0.1 10^3/uL (0.0-0.8); Eosinophils % 1.6 %; Hematocrit 40.5 % (37.0-47.0); Hemoglobin 12.8 g/dL (11.5-15.3); Lymphocytes # 1.5 10^3/uL (0.8-4.8); Lymphocytes % 17.6 %; Mean Corpuscular HGB Conc 31.6 g/dL (30.0-36.0); Mean Corpuscular Hemoglobin 28.1 pg (28.0-34.0); Mean Platelet Volume 8.9 fL (7.4-10.4); Monocytes # 0.8 10^3/uL (0.2-0.9); Monocytes % 9.4 %; Neutrophils # 6.13 10^3/uL (1.8-7.7); Neutrophils % 69.9 %; Nucleated Red Blood Cells % 0 %; Platelet Count 337 10^3/cmm (130-400); Red Blood Count 4.55 10^6/uL (4.1-5.3); Red Cell Distribution Width 15.5 % (12.1-15.1); White Blood Count 8.8 10^3/uL (4.0-10.0)
[2022-10-02 11:23] LABS: Alanine Aminotransferase 18 U/L (0-33); Albumin Level 4.2 g/dL (3.5-5.2); Alkaline Phosphatase 100 U/L (35-105); Anion Gap 12.4 (5-19); Aspartate Amino Transferase 21 U/L (0-32); Blood Urea Nitrogen 20 mg/dL (8-23); Calcium 9.4 mg/dL (8.5-10.5); Carbon Dioxide 32 mmol/L (22-29); Chloride 98 mmol/L (98-107); Globulin 3.2 g/dL (1.3-4.6); Glomerular Filtration Rate 71.3 mL/min (90-130); Glucose 99 mg/dL (65-115); Osmolality Calculated 289 mOsm/kg (285-295); Potassium 4.4 mmol/L (3.5-5.1); Sodium 138 mmol/L (136-145); Total Bilirubin 0.2 mg/dL (0.15-1.2); Total Protein 7.4 g/dL (6.6-8.7)
== END 2022-10-13 23:59 | disposition home or self-care (01) ==
PROVIDERS: PCP Family Medicine; Visit Provider Nurse Practitioner
DX: C54.1 Malignant neoplasm of endometrium (principal); Z90.710 Acquired absence of both cervix and uterus; Z90.722 Acquired absence of ovaries, bilateral; C77.8 Secondary and unspecified malignant neoplasm of lymph nodes of multiple regions; R53.0 Neoplastic (malignant) related fatigue; G62.0 Drug-induced polyneuropathy; T45.1X5A Adverse effect of antineoplastic and immunosuppressive drugs, initial encounter; R05.3 Chronic cough; J32.8 Other chronic sinusitis; Z79.899 Other long term (current) drug therapy
CPT/HCPCS: 36415; 80053; 85025; 86304; 99215

== ENCOUNTER 2022-10-08 10:07 | Outpatient (CLI) | payer MEDICARE, MEDICAID, SELFPAY ==
--- NOTE | 2022-10-08 10:17 | MM_ITS ---
WS: [id number] BILATERAL SCREENING DIGITAL TOMOSYNTHESIS MAMMOGRAM WITH CAD HISTORY: SCREENING COMPARISON: 08/22/2021 and 07/24/2020 Bilateral CC and MLO views with tomosynthesis and synthetic mammography submitted. Computer aided det ection analyzed. Breast composition: The breasts are heterogeneously dense, which may obscure small masses. No suspici ous masses, microcalcifications or architectural distortion. Scattered asymmetries and calcifications . No interval change is appreciated. MM/[place] [id number] IMPRESSION: BI-RADS: 2-Benign FOLLOW UP: 1 Year Follow-up
== END 2022-10-08 10:08 | disposition home or self-care (01) ==
LOC: RAD 10:11
PROVIDERS: PCP Family Medicine; Visit Provider Family Medicine
DX: Z12.31 Encounter for screening mammogram for malignant neoplasm of breast (principal)
CPT/HCPCS: 77063; 77067

== ENCOUNTER → 2022-10-13 08:35 | Outpatient (BNVA) | payer MEDICARE, MEDICAID, SELFPAY | PROVIDERS: PCP Family Medicine; Visit Provider Physician Assistant | DX: M17.0 Bilateral primary osteoarthritis of knee (principal) | CPT/HCPCS: 20610; 99213; J7318 ==

== ENCOUNTER 2022-10-22 09:26 | Outpatient (CLI) | payer MEDICARE, MEDICAID, SELFPAY ==
--- NOTE | 2022-10-22 09:51 | XR_ITS ---
WS: [email or web address] Sinus series, 3 views, 10/22/2022 Clinical Data: chronic sinusitis Comparison: None. Findings: There is almost total opacification of the right maxillary sinus with a small amount of residual air. The left maxillary sinus is clear. There is opacification of the right ethmoid sinus and the frontal sinuses. No bone destruction or erosion is seen. The sella turcica is normal. The orbits are not rem arkable. XR/XR sinus <3V [id number] Impression: Acute and/or chronic pansinusitis.
== END 2022-10-22 09:27 | disposition home or self-care (01) ==
LOC: RAD 09:31
PROVIDERS: PCP Family Medicine; Visit Provider Nurse Practitioner
DX: J32.9 Chronic sinusitis, unspecified (principal)
CPT/HCPCS: 70210

== ENCOUNTER 2022-10-29 08:12 | Outpatient (CLI) | payer MEDICARE, MEDICAID, SELFPAY ==
--- NOTE | 2022-10-29 08:30 | CT_ITS ---
WS: [id number] CT CHEST WITH INTRAVENOUS CONTRAST HISTORY: persistent cough TECHNIQUE: Contiguous 5 mm axial imaging performed on the thorax. Coronal and sagittal reformats are submitted. All CT scans at [facility] use at least one of these dose optimization techniques: automated exposure control; mA and/or kV adjustment per patient size (includes targeted exams where dose is matched to clinical indication); or iterative reconstruction. CONTRAST: Omnipaque 350; 100 mL IV. DLP: 487.11 mGy.cm COMPARISON: 10/28/2020 Lungs and central airway: Lungs are well-aerated and clear. Stable 3 mm nodule in the lingula subpleu ral. No pneumonia. Pleura: Normal. No pleural effusion. Heart and pericardium: Mild cardiomegaly with no pericardial effusion. Mediastinum and kamille: No mediastinum or hilar adenopathy. Benign calcified lymph nodes. Vessels: Mild pulmonary enlargement. Mild atherosclerosis aorta. Chest wall and lower neck: No soft tissue masses. Upper abdomen: Contracted gallbladder. LEFT renal cyst measures 3.1 cm upper pole. No adrenal mass. V isualized liver is normal. Osseous structures: No destructive process. CT/CT chest w con* [id number] IMPRESSION: 1. Stable chest CT. No pneumonia. 2. No mediastinal or hilar adenopathy. 3. LEFT renal cyst, 3.1 cm.
== END 2022-10-29 08:13 | disposition home or self-care (01) ==
LOC: RAD 08:15
PROVIDERS: PCP Family Medicine; Visit Provider Nurse Practitioner
DX: R05.9 Cough, unspecified (principal); C54.1 Malignant neoplasm of endometrium; I10 Essential (primary) hypertension; N28.1 Cyst of kidney, acquired
CPT/HCPCS: 71260; Q9967

== ENCOUNTER → 2022-11-12 14:59 | Outpatient (BNVA) | payer MEDICARE, MEDICAID, SELFPAY | PROVIDERS: PCP Family Medicine; Visit Provider Internal Medicine | DX: M06.9 Rheumatoid arthritis, unspecified (principal); M79.10 Myalgia, unspecified site; M54.50 Low back pain, unspecified | CPT/HCPCS: 99214 ==

== ENCOUNTER → 2022-12-31 08:37 | Outpatient (BNVA) | payer MEDICARE, MEDICAID, SELFPAY | PROVIDERS: PCP Family Medicine; Visit Provider Nurse Practitioner Family | DX: M17.12 Unilateral primary osteoarthritis, left knee (principal); E66.9 Obesity, unspecified; Z68.42 Body mass index [BMI] 45.0-49.9, adult | CPT/HCPCS: 99214 ==

== ENCOUNTER → 2023-02-05 08:32 | Outpatient (BNVA) | payer MEDICARE, MEDICAID, SELFPAY | PROVIDERS: PCP Family Medicine; Visit Provider Nurse Practitioner Family | DX: M17.12 Unilateral primary osteoarthritis, left knee (principal); E66.9 Obesity, unspecified; Z68.42 Body mass index [BMI] 45.0-49.9, adult | CPT/HCPCS: 99213 ==

== ENCOUNTER 2023-02-17 11:03 | Outpatient (CLI) | payer MEDICARE, MEDICAID, SELFPAY ==
[2023-02-17 11:37] LABS: Basophils # 0.1 10^3/uL (0.0-0.1); Basophils % 0.8 %; Eosinophils # 0.2 10^3/uL (0.0-0.8); Eosinophils % 2.5 %; Hematocrit 42.3 % (37.0-47.0); Hemoglobin 13.5 g/dL (11.5-15.3); Lymphocytes # 1.1 10^3/uL (0.8-4.8); Lymphocytes % 16.5 %; Mean Corpuscular HGB Conc 31.9 g/dL (30.0-36.0); Mean Corpuscular Hemoglobin 28.4 pg (28.0-34.0); Mean Corpuscular Volume 89.1 fl (81-99); Mean Platelet Volume 9.3 fL (7.4-10.4); Monocytes # 0.7 10^3/uL (0.2-0.9); Monocytes % 10.8 %; Neutrophils # 4.47 10^3/uL (1.8-7.7); Neutrophils % 69.1 %; Nucleated Red Blood Cells % 0 %; Platelet Count 298 10^3/cmm (130-400); Red Blood Count 4.75 10^6/uL (4.1-5.3); Red Cell Distribution Width 14.5 % (12.1-15.1); White Blood Count 6.5 10^3/uL (4.0-10.0)
[2023-02-17 11:47] LABS: Erythrocyte Sedimentation Rate 29 mm/hr (0-15)
[2023-02-17 11:55] LABS: Alanine Aminotransferase 17 U/L (0-33); Albumin Level 3.9 g/dL (3.5-5.2); Alkaline Phosphatase 81 U/L (35-105); Anion Gap 14.1 (5-19); Aspartate Amino Transferase 17 U/L (0-32); Blood Urea Nitrogen 15 mg/dL (8-23); C Reactive Protein 10.9 mg/L (0.0-4.9); Calcium 9.3 mg/dL (8.5-10.5); Carbon Dioxide 30 mmol/L (22-29); Chloride 99 mmol/L (98-107); Globulin 3.6 g/dL (1.3-4.6); Glomerular Filtration Rate 71.1 mL/min (90-130); Glucose 102 mg/dL (65-115); Osmolality Calculated 289 mOsm/kg (285-295); Phosphorus 2.7 mg/dL (2.5-4.5); Potassium 4.1 mmol/L (3.5-5.1); Sodium 139 mmol/L (136-145); Total Bilirubin 0.2 mg/dL (0.15-1.2); Total Protein 7.5 g/dL (6.6-8.7)
[2023-02-19 22:49] LABS: Myositis EJ AB <11 SI (<11); Myositis JO-1 AB <11 SI (<11); Myositis MDA-5 AB <11 SI (<11); Myositis MI-2 Alpha AB <11 SI (<11); Myositis MI-2 Beta AB <11 SI (<11); Myositis NXP-2AB <11 SI (<11); Myositis OJ AB <11 SI (<11); Myositis PL-12 AB <11 SI (<11); Myositis PL-7 AB <11 SI (<11); Myositis SRP AB <11 SI (<11); Myositis TIF-1y AB <11 SI (<11)
== END 2023-02-17 11:04 | disposition home or self-care (01) ==
LOC: LAB 11:06
PROVIDERS: PCP Family Medicine; Visit Provider Internal Medicine
DX: R93.0 Abnormal findings on diagnostic imaging of skull and head, not elsewhere classified (principal)
CPT/HCPCS: 36415; 80053; 84100; 84182; 85025; 85651; 86140; 86235

== ENCOUNTER → 2023-02-24 13:03 | Outpatient (BNVA) | payer MEDICARE, MEDICAID, SELFPAY | PROVIDERS: PCP Family Medicine; Visit Provider Internal Medicine | DX: M06.9 Rheumatoid arthritis, unspecified (principal); R74.8 Abnormal levels of other serum enzymes; M79.10 Myalgia, unspecified site; M54.50 Low back pain, unspecified | CPT/HCPCS: 99214 ==

== ENCOUNTER → 2023-03-12 09:10 | Outpatient (BNVA) | payer MEDICARE, MEDICAID, SELFPAY | PROVIDERS: PCP Family Medicine; Visit Provider Student in an Organized Health Care Education/Training Program | DX: M17.12 Unilateral primary osteoarthritis, left knee (principal) | CPT/HCPCS: 73560; 73565; 99213 ==

== ENCOUNTER 2023-04-01 12:53 | Oncology outpatient (recurring) (ONCR) | payer MEDICARE, MEDICAID, SELFPAY ==
[2023-04-01 12:58] VITALS: BP 149/85; PULSE 89; RESP 18; TEMP 36; O2SAT 96
[2023-04-01 13:39] LABS: CA 125 6.8 U/mL (0-35)
== END 2023-04-15 23:59 | disposition home or self-care (01) ==
PROVIDERS: PCP Family Medicine; Visit Provider Nurse Practitioner
DX: Z90.710 Acquired absence of both cervix and uterus; Z90.722 Acquired absence of ovaries, bilateral; G62.0 Drug-induced polyneuropathy; R05.3 Chronic cough; Z79.899 Other long term (current) drug therapy; Z08 Encounter for follow-up examination after completed treatment for malignant neoplasm; Z85.42 Personal history of malignant neoplasm of other parts of uterus
CPT/HCPCS: 36415; 86304; 99213

== ENCOUNTER → 2023-04-16 07:57 | Outpatient (BNVA) | payer MEDICARE, MEDICAID, SELFPAY | PROVIDERS: PCP Family Medicine; Visit Provider Student in an Organized Health Care Education/Training Program | DX: M17.0 Bilateral primary osteoarthritis of knee (principal) | CPT/HCPCS: 20610; 99213; J7318 ==

== ENCOUNTER → 2023-07-12 10:33 | Outpatient (BNVA) | payer MEDICARE, MEDICAID, SELFPAY | PROVIDERS: PCP Family Medicine; Visit Provider Internal Medicine | DX: R74.8 Abnormal levels of other serum enzymes (principal); M06.9 Rheumatoid arthritis, unspecified; M79.10 Myalgia, unspecified site | CPT/HCPCS: 99214 ==

== ENCOUNTER → 2023-09-23 12:21 | Outpatient (BNVA) | payer MEDICARE, MEDICAID, SELFPAY | PROVIDERS: PCP Family Medicine; Visit Provider Family Medicine | DX: Z51.81 Encounter for therapeutic drug level monitoring (principal); C54.1 Malignant neoplasm of endometrium; M25.562 Pain in left knee; E66.9 Obesity, unspecified; I10 Essential (primary) hypertension; M06.9 Rheumatoid arthritis, unspecified; Z79.899 Other long term (current) drug therapy | CPT/HCPCS: 80053; 85025; 85651; 86141; 86304 ==

== ENCOUNTER 2023-09-29 12:21 | Oncology outpatient (recurring) (ONCR) | payer MEDICARE, MEDICAID, SELFPAY ==
[2023-09-29 12:33] LABS: Basophils % 0.4 %; Eosinophils # 0.1 10^3/uL (0.0-0.8); Eosinophils % 1.4 %; Hematocrit 42.7 % (36-47); Lymphocytes # 1.7 10^3/uL (0.8-4.8); Lymphocytes % 17.9 %; Mean Corpuscular HGB Conc 33.5 g/dL (30-55); Mean Corpuscular Hemoglobin 29.8 pg (27-33); Mean Platelet Volume 9.2 fL (7.4-10.4); Monocytes # 0.7 10^3/uL (0.2-0.9); Monocytes % 7.3 %; Neutrophils # 6.89 10^3/uL (1.8-7.7); Neutrophils % 72.6 %; Nucleated Red Blood Cells % 0 %; Platelet Count 313 10^3/cmm (157-399); Red Cell Distribution Width 13.5 % (12.1-15.1); White Blood Count 9.49 10^3/uL (3.29-11.43)
[2023-09-29 13:00] LABS: Alanine Aminotransferase 20 U/L (0-33); Albumin Level 4.1 g/dL (3.5-5.2); Alkaline Phosphatase 79 U/L (35-105); Anion Gap 15.8 (5-19); Aspartate Amino Transferase 19 U/L (0-32); Blood Urea Nitrogen 14 mg/dL (8-23); CA 125 7.6 U/mL (0-35); Calcium 9.4 mg/dL (8.5-10.5); Carbon Dioxide 30 mmol/L (22-29); Chloride 100 mmol/L (98-107); Globulin 3.7 g/dL (1.3-4.6); Glomerular Filtration Rate 71.1 mL/min (90-130); Glucose 109 mg/dL (65-115); Osmolality Calculated 295 mOsm/kg (285-295); Potassium 3.8 mmol/L (3.5-5.1); Sodium 142 mmol/L (136-145); Total Bilirubin 0.3 mg/dL (0.15-1.2); Total Protein 7.8 g/dL (6.6-8.7)
== END 2023-10-14 23:59 | disposition home or self-care (01) ==
PROVIDERS: Nurse Practitioner Family; PCP Family Medicine; Visit Provider Nurse Practitioner
DX: Z90.710 Acquired absence of both cervix and uterus; Z90.722 Acquired absence of ovaries, bilateral; G62.0 Drug-induced polyneuropathy; T45.1X5A Adverse effect of antineoplastic and immunosuppressive drugs, initial encounter; R05.3 Chronic cough; J32.8 Other chronic sinusitis; Z79.899 Other long term (current) drug therapy; Z08 Encounter for follow-up examination after completed treatment for malignant neoplasm; Z85.42 Personal history of malignant neoplasm of other parts of uterus; Z85.44 Personal history of malignant neoplasm of other female genital organs; Z92.21 Personal history of antineoplastic chemotherapy; Z92.3 Personal history of irradiation
CPT/HCPCS: 36415; 80053; 85025; 86304; 99213

== ENCOUNTER → 2023-10-06 13:12 | Outpatient (BNVA) | payer MEDICARE, MEDICAID, SELFPAY | PROVIDERS: PCP Family Medicine; Visit Provider Internal Medicine Rheumatology | DX: M06.9 Rheumatoid arthritis, unspecified (principal); Z79.899 Other long term (current) drug therapy; M79.10 Myalgia, unspecified site; M05.79 Rheumatoid arthritis with rheumatoid factor of multiple sites without organ or systems involvement; Z71.85 Encounter for immunization safety counseling | CPT/HCPCS: 99214 ==

== ENCOUNTER → 2023-11-05 07:39 | Outpatient (BNVA) | payer MEDICARE, MEDICAID, SELFPAY | PROVIDERS: PCP Family Medicine; Visit Provider Physician Assistant | DX: M17.0 Bilateral primary osteoarthritis of knee (principal) | CPT/HCPCS: 99214 ==

== ENCOUNTER 2023-11-24 14:22 | Outpatient (CLI) | payer MEDICARE, MEDICAID, SELFPAY ==
--- NOTE | 2023-11-24 17:00 | CT_ITS ---
WS: [id number] CT LEFT knee, noncontrast HISTORY: LEFT DJD TECHNIQUE: Protocol for ALL total knee replacement has been obtained. This includes axial imaging th rough the LEFT hip, LEFT knee and LEFT ankle. DLP: 1924.75 mGy.cm COMPARISON: 03/12/2023 Postoperative fusion at the SI joints. No lucency surrounding the visualized screws. Mild narrowing of the LEFT hip joint. No significant osteophytic ridging around the acetabulum or fem oral head. No joint effusion. LEFT knee: Moderate to severe tricompartment osteoarthritis. Hypertrophic bone formation narrowing th e joint spaces. No fractures. No dislocation. Severe narrowing of the medial compartment with near elvia ne upon bone. Small suprapatellar effusion. Vascular calcifications are minimal. Negative LEFT ankle. IMPRESSION: CT imaging provided for [facility] robotic total knee replacement.
== END 2023-11-24 14:23 | disposition home or self-care (01) ==
LOC: RAD 14:23
PROVIDERS: PCP Family Medicine; Visit Provider Physician Assistant
DX: M17.12 Unilateral primary osteoarthritis, left knee (principal)
CPT/HCPCS: 73700

== ENCOUNTER → 2023-11-25 11:12 | Outpatient (BNVA) | payer MEDICARE, MEDICAID, SELFPAY | PROVIDERS: PCP Family Medicine; Visit Provider Family Medicine | DX: M06.9 Rheumatoid arthritis, unspecified (principal); Z79.899 Other long term (current) drug therapy; M25.562 Pain in left knee | CPT/HCPCS: 80076; 82565; 85025; 86140 ==

== ENCOUNTER 2023-11-29 10:29 | Outpatient (CLI) | payer MEDICARE, MEDICAID, SELFPAY ==
[2023-11-29 12:13] LABS: Basophils # 0.1 10^3/uL (0.0-0.1); Basophils % 0.6 %; Eosinophils # 0.2 10^3/uL (0.0-0.8); Eosinophils % 1.6 %; Hematocrit 43.4 % (36-47); Lymphocytes # 1.6 10^3/uL (0.8-4.8); Lymphocytes % 17.1 %; Mean Corpuscular Hemoglobin 29.6 pg (27-33); Mean Corpuscular Volume 92.3 fl (85-98); Mean Platelet Volume 9.8 fL (7.4-10.4); Monocytes # 0.8 10^3/uL (0.2-0.9); Monocytes % 8.7 %; Neutrophils # 6.59 10^3/uL (1.8-7.7); Neutrophils % 71.2 %; Nucleated Red Blood Cells % 0 %; Platelet Count 322 10^3/cmm (157-399); Red Cell Distribution Width 14.6 % (12.1-15.1); White Blood Count 9.26 10^3/uL (3.29-11.43)
[2023-11-29 12:30] LABS: Add Urine Microscopic? YES; Bacteria Urine TRACE /hpf; Bilirubin Urine Neg (Negative); Blood Urine 2+ (Negative); Glucose Urine UA Norm (Normal); Ketones Urine Negative (Negative); Leukocyte Esterase Urine Negative (Negative); Nitrate Urine Negative (Negative); Protein Urine Neg (Negative); RBC Urine 0-4 /hpf (0-2); Urine Appearance SL Hazy (CLEAR); Urine Color Yellow (Yellow); Urobilinogen Urine Norm (Negative); pH Urine 6.5 (5-7)
[2023-11-29 12:31] LABS: Add Urine Culture? No
[2023-11-29 12:32] LABS: Alanine Aminotransferase 25 U/L (0-33); Albumin Level 4.1 g/dL (3.5-5.2); Alkaline Phosphatase 66 U/L (35-105); Anion Gap 14.7 (5-19); Aspartate Amino Transferase 19 U/L (0-32); Blood Urea Nitrogen 19 mg/dL (8-23); Calcium 9.5 mg/dL (8.5-10.5); Carbon Dioxide 30 mmol/L (22-29); Chloride 98 mmol/L (98-107); Globulin 3.7 g/dL (1.3-4.6); Glomerular Filtration Rate 99.1 mL/min (90-130); Glucose 96 mg/dL (65-115); Osmolality Calculated 290 mOsm/kg (285-295); Potassium 3.7 mmol/L (3.5-5.1); Sodium 139 mmol/L (136-145); Total Bilirubin 0.2 mg/dL (0.15-1.2); Total Protein 7.8 g/dL (6.6-8.7)
== END 2023-11-29 10:30 | disposition home or self-care (01) ==
LOC: LAB 10:36
PROVIDERS: PCP Family Medicine; Visit Provider Physician Assistant
DX: Z01.818 Encounter for other preprocedural examination (principal); M17.12 Unilateral primary osteoarthritis, left knee
CPT/HCPCS: 36415; 80053; 81001; 85025

== ENCOUNTER → 2023-12-01 09:25 | Outpatient (BNVA) | payer MEDICARE, MEDICAID, SELFPAY | PROVIDERS: PCP Family Medicine; Visit Provider Family Medicine | DX: Z01.818 Encounter for other preprocedural examination (principal); Z79.899 Other long term (current) drug therapy | CPT/HCPCS: 81003; 93005 ==

== ENCOUNTER 2023-12-06 09:37 | Observation (INO) | payer MEDICARE, MEDICAID, SELFPAY ==
[2023-12-06] VITALS (26 sets, daily range): BP systolic 115–167; BP diastolic 63–95; PULSE 69–101; RESP 12–19; TEMP 35.9–36.8; O2SAT 90–98; BMI 46.1
[2023-12-06] MEDS: acetaminophen 1,000 MG/100 ML PIGGYBACK 400 MG IV ×3 (06:27→21:45)
[2023-12-06] MEDS: ketorolac 30 mg/mL INJ IVP (06:27)
[2023-12-06] MEDS: scopolamine 1.5 Patch 1 PATCH TRANSDERMA (06:27)
[2023-12-06] MEDS: lactated ringers 500 ML IV (06:28)
[2023-12-06] MEDS: sodium chloride 0.9% 1,000 ML 30 ML IV (06:28)
--- NOTE | 2023-12-06 06:54 | W.PM.OPSUD ---
Surgery/Procedure H&P Update DATE OF PROCEDURE: December 06, 2023 DATE H&P PERFORMED: 11/05/23 H&P UPDATE INFORMATION: I have reviewed H&P completed within last 30 days, I have examined patient prior to procedure and No changes to prior documentation PREOP DIAGNOSIS: Left Knee DJD PRIMARY INDICATION FOR PROCEDURE: Left Knee DJD PLANNED PROCEDURE: Operation Date: 12/06/23 07:00 Proposed Procedures p Jason Robot Total Knee Arthroplasty(Left) - Godwin Aguero DO
[2023-12-06 06:57] LABS: Basophils # 0.1 10^3/uL (0.0-0.1); Basophils % 0.7 %; Eosinophils # 0.2 10^3/uL (0.0-0.8); Eosinophils % 2.2 %; Hematocrit 41.6 % (36-47); Lymphocytes # 1.2 10^3/uL (0.8-4.8); Lymphocytes % 14.1 %; Mean Corpuscular HGB Conc 32.5 g/dL (30-55); Mean Corpuscular Hemoglobin 29.7 pg (27-33); Mean Corpuscular Volume 91.4 fl (85-98); Mean Platelet Volume 9.7 fL (7.4-10.4); Neutrophils # 6.15 10^3/uL (1.8-7.7); Neutrophils % 71.4 %; Nucleated Red Blood Cells % 0 %; Platelet Count 265 10^3/cmm (157-399); Red Blood Count 4.55 10^6/uL (3.85-5.65); Red Cell Distribution Width 14.6 % (12.1-15.1); White Blood Count 8.61 10^3/uL (3.29-11.43)
[2023-12-06] MEDS: ceFAZolin 2,000 MG in sodium chloride 0.9% (plus) 50 ML 100 MG IV (06:57)
--- NOTE | 2023-12-06 07:00 | ANES.PREANE2 ---
Pre-Anesthetic Assessment Height/Weight: Height 1.63 m Weight 122.016 kg Temp Pulse Resp BP Pulse Ox O2 Del Method 97.0 F L 84 18 167/95 96 Room Air 12/06/23 06:20 12/06/23 06:20 12/06/23 06:20 12/06/23 06:20 12/06/23 06:20 12/06/23 06:20 Preop Diagnosis: Left Knee DJD Operation Date: 12/06/23 07:00 Proposed Procedures p Jason Robot Total Knee Arthroplasty(Left) - Godwin Aguero DO Familial anesthetic complications: None Last intake: Intake Last Liquid Date 12/05/23 Last Liquid Time 19:00 Last Solid Date 12/05/23 Last Solid Time 19:00 Social No alcohol and No tobacco Exam alert, oriented x 3, clear to auscultation bilaterally and regular rate & rhythm Airway Mallampati: Class III Dentition: full CV/HEM Hypertension Metabolic Morbid Obesity [facility] Rheumatoid Arthritis chronic prednisone Anesthetic Plan ASA status: 3 Anesthesia: Regional (specify below) Other: spinal + adductor Risk of > 500 ml blood loss (7ml/kg in children): Yes, adequate IV access and fluids planned Medications/Allergies Home Medications Medication Instructions Recorded Confirmed Last Taken Type coenzyme Q10 10 mg capsule (Co 10 mg PO DAILY 02/18/21 12/06/23 12/05/23 History Q-10) hydrocodone 5 mg-acetaminophen 325 1 tab PO Q4H PRN Pain 04/28/22 12/06/23 12/06/23 History mg tablet hydrochlorothiazide 25 mg tablet 25 mg PO DAILY #90 tabs 12/14/22 12/06/23 12/05/23 Rx furosemide 40 mg tablet (Lasix) 40 mg PO DAILY #90 tabs 07/23/23 12/06/23 12/05/23 Rx ropinirole 0.25 mg tablet 0.75 mg (3 x 0.25 mg) PO .QHS #270 07/23/23 12/06/23 12/05/23 Rx tabs trazodone 50 mg tablet 50 mg PO .QHS #90 tabs 07/23/23 12/06/23 12/05/23 Rx glucosamine sulfate 2KCl 1,000 mg 1,000 mg PO DAILY 09/29/23 12/06/23 12/04/23 History tablet (Glucosamine Relief) potassium chloride 10 mEq 10 meq PO BID #180 tabs 09/30/23 12/06/23 12/05/23 Rx tablet,extended release (Klor-Con) folic acid 1 mg tablet 1 mg PO DAILY #30 tabs 10/06/23 12/06/23 12/05/23 Rx methotrexate sodium 2.5 mg tablet See Rx Instructions PO .Q7days #30 10/06/23 12/06/23 12/05/23 Rx tabs prednisone 20 mg tablet See Rx Instructions PO .COMPLEX 10/06/23 12/06/23 1 Week Ago Rx PRN joint pain flare #30 tabs ~11/29/23 paroxetine HCl 10 mg tablet (Paxil) 10 mg PO DAILY 12/03/23 12/06/23 12/05/23 History Allergies Allergy/AdvReac Type Severity Reaction Status Date / Time lisinopril Allergy ADR-Cough Verified 12/06/23 06:16 ezetimibe AdvReac ADR-Cramping Verified 12/06/23 06:16 of the Muscles Current Medications Generic Name Dose Route Start Last Admin Trade Name Freq PRN Reason Stop Dose Admin Lactated Ringer's 500 mls @ 500 mls/hr 12/06/23 06:11 12/06/23 06:28 Lactated Ringers IV 12/06/23 07:10 500 mls/hr .Q1H ONE Administration Sodium Chloride 1,000 mls @ 30 mls/hr 12/06/23 06:15 12/06/23 06:28 Sodium Chloride 0.9% IV 12/07/23 06:14 30 mls/hr .Q24H ERICA Administration PFSH Anesthesia Medical History Immunization counseling Seropositive rheumatoid arthritis of multiple sites Endometrial adenocarcinoma Treatment started 10/2018 Chronic low back pain with sciatica Encounter for long-term (current) use of NSAIDs Instability of joint Acute back pain Acute bilateral low back pain with bilateral sciatica Encounter for long-term opiate analgesic use Lumbar stenosis with neurogenic claudication Surgical History History of back surgery Hx of knee surgery Hx of abdominal hysterectomy Hx of shoulder surgery Family History Other CAD (coronary artery disease) Cancer Hyperlipidemia Hypertension Social History Smoking and tobacco/nicotine status: never used tobacco/nicotine Second hand smoke exposure: No Alcohol intake: current Alcohol intake frequency: holidays/special occasions only Alcohol type: beer Substance/Drug Use: never Data Anesthesia 12/06/23 06:33 12/06/23 06:33 Short CBC 12/06/23 Range/Units 06:33 WBC 8.61 (3.29-11.43) 10^3/uL Hgb 13.50 (11.27-16.99) g/dL Hct 41.6 (36-47) % MCV 91.4 (85-98) fl Plt Count 265 (157-399) 10^3/cmm Neut % (Auto) 71.4 % Neut # (Auto) 6.15 (1.8-7.7) 10^3/uL Cardiac Studies: No Data to Display
--- NOTE | 2023-12-06 07:01 | ANES.PROC ---
Anesthesia Procedures Procedure/Date: 12/06/23 Nerve Block ^: Nerve Block 1: Main Anesthesia: spinal anesthesia block Time Out Performed: Yes Consent: requested by attending/covering physician, from patient, from other, risks and benefits reviewed and patient agrees to proceed Nerve block location: adductor canal (L) Anesthesia monitors applied: pulse oximetry and BP cuff Nerve block position: supine Anesthetic Used: ropivicaine 0.5% (30 ml) and with decadron (4 mg) Ultrasound used to: recognize landmarks and visualize and ID femerol nerve Nerve Stimulator Used?: No Interscalene/Femoral BLK: 4 stimuplex 21 g needle used for position and inplane approach, visualize local anesthetic spread and no vascular puncture identified Patient Tolerated Procedure: well Complications: none
[2023-12-06 07:10] LABS: Anion Gap 14.6 (5-19); Blood Urea Nitrogen 19 mg/dL (8-23); Calcium 9.6 mg/dL (8.5-10.5); Carbon Dioxide 28 mmol/L (22-29); Chloride 102 mmol/L (98-107); Creatinine Clr Calc Pharmacy 85.5235; Glucose 116 mg/dL (65-115); Osmolality Calculated 295 mOsm/kg (285-295); Potassium 3.6 mmol/L (3.5-5.1); Sodium 141 mmol/L (136-145)
[2023-12-06] MEDS: ceFAZolin 1,000 MG in sodium chloride 0.9% (plus) 50 ML 100 MG IV (07:26)
[2023-12-06] MEDS: tranexamic acid 1,000 mg/10mL SDV 1000 MG IV (07:35)
[2023-12-06] MEDS: tranexamic acid 1,000 mg/10mL SDV 1000 MG XX (07:52)
[2023-12-06] MEDS: ROPivacaine 0.2% Premix 100 mL 200 MG INTRA-ARTI (07:52)
[2023-12-06] MEDS: EPINEPHrine 1 mg/mL INJ XX (07:52)
[2023-12-06] MEDS: ketorolac 30 mg/mL INJ XX (07:52)
[2023-12-06] MEDS: vancomycin 1,000 MG SDV 1000 MG XX (07:55)
--- NOTE | 2023-12-06 09:19 | P.BOP_ITS ---
Date of Procedure: [12/06/2023] Surgeon: Godwin Aguero DO Dairy Manager(s): LANE Carpio Procedure(s) performed: Left total knee arthroplasty?Jason robotic assisted Findings of the procedure(s): Patient had severe left knee degenerative joint disease varus deformity underwent procedure as planned without issues or complications. Estimated blood loss: 25 mL Specimen(s) removed: Tibia femur and patellar bone cuts removed Post-operative diagnosis: Left knee degenerative joint disease
--- NOTE | 2023-12-06 09:21 | PM.OP ---
Operative Report Date of procedure: December 06, 2023 Surgeon: Godwin Aguero DO Ict Managers: LANE Carpio Procedure: Preoperative diagnosis: Left knee degenerative joint disease Post-op diagnosis: Same Procedure done: Left total knee arthroplasty, cemented?robotic assisted Jason Implants: Jose triathlon size 5 femur CR cemented?left Jose triathlon size? 4 tibia universal baseplate cemented [place] triathlon symmetric patella size 31 mm Jose triathlon polyethylene 9mm Surgeon: Godwin Aguero DO Estimated blood?loss: 25 mL Tourniquet 68minutes IV fluids: 800 mL Urine output: 100 mL Complications: None Condition: stable Disposition: floor Brief History: Patient is a 68-year-old female with with chronic?left knee degenerative joint disease.? Patient has been worked up in the outpatient setting in the orthopedic office at this point time through shared decision making given? [id number] arthritis as well as failed conservative treatment, and pt would?like to proceed with a?left total knee arthroplasty.? Through shared decision making elected to proceed with surgical intervention for?left total knee arthroplasty.? We talked about continued conservative treatment and surgical intervention as far as the risk benefits complications alternatives surgical and nonsurgical treatment options.? At this point time understanding patient risks with surgery he agrees to proceed with surgical intervention.? Once again? risk with surgery include but are not?limited to make it better make it worse blood clot, heart attack, stroke, on the table, infection, injury to nerves or vessels, persistent pain, arthrofibrosis, implant failure.? Understanding these risks patient agrees to proceed with surgical intervention consent was obtained in the office.? All questions answered. Procedure: Patient was seen and evaluated in the preoperative holding area.? Consent was reviewed and signed with patient with plan for?left total knee arthroplasty.? All questions answered.? Correct extremity marked.? Patient seen and evaluated by the anesthesia department and once cleared for surgery was taken back to the operative suite.? Patient was placed into a supine position on the OR table.? All bony prominences were well-padded.? Patient was appropriately secured to the bed.? Patient underwent anesthesia per the anesthesia department.? Patient received anesthesia per anesthesia department and? Vargas catheter was placed.? A nonsterile tourniquet was applied to the?left thigh.? At this point in time a final timeout performed.? Patient received appropriate preoperative antibiotics and TXA. Next the?left?lower extremity was then prepped and draped in standard orthopedic fashion. Esmarch tourniquet was used exsanguinate the?left?lower extremity.? Tourniquet was insufflated to 300 mmHg. A standard anterior incision was made over midline of the knee.? Sharp scalpel excision through skin and subcutaneous tissue full-thickness skin flaps were made.? Fascia was elevated off of the extensor retinaculum was stable with medial parapatellar arthrotomy was then made.? The performed standard sequential releases..? Immediately on entry into the joint patient was found to have severe eburnated bone and tricompartmental arthritic changes noted.? With significant osteophyte formation.? Next the the patella was then stuffed and the knee was then flexed.?? Jarred was placed superiorly around the anterior aspect of the femur this was freed of synovium and I subsequently then placed by 2 femur pins to establish my femur arrays for the Jason robot.? These were then placed bicortically and? femur array was then appropriately secured with appropriate visualization.? Next attention was turned towards the tibial rays.? These were then drilled sequentially bicortically in parallel fashion and intraincisional.? I then placed my guide as well as my tibial array on in place.? This was appropriately secured and had excellent visualization with the Jason robot.? Next the tibial checkpoint as well as femur checkpoint were then placed.? At this point time I then subsequently established my head center as well as my medial?lateral malleoli as well as my checkpoints.? Next utilizing standard Jason technology I then mapped out the appropriate points and confirmation points around the femur as well as the tibia in standard fashion.? Once this was then done I then removed all osteophytes in preparation for dynamic testing.? All osteophytes were removed as well as I removed the ACL and the PCL was excised due to its significant tearing and degeneration noted.? At this point time the knee was brought into full extension and we performed our standard evaluation of our gap balancing stressing his?ligaments and extension as well as flexion appropriate adjustments were made to have appropriate gap balancing in both flexion and extension.? This plan for final counts.? We get a preoperative plan evaluating our implants which was a size 5 femur and a size 4 tibia.? Next we brought in the Jason robot and sequentially made our femur cuts.? All excess bony cuts were then removed.? Finally we made our tibial cut.? Once this was done a standard PCL retractor was then placed into this position I excised the medial and?lateral meniscus.? The tibial cut was then subsequently removed all excess bony debris was removed.? I then utilized a?lamina wire straightening machine operator and remove the posterior osteophytes.? At this point time sized the tibia and confirmed this was a size 4.? I utilized our blunt probe to establish rotation of tibial implant.? Once this was done I then placed my tibia size 4 trial in appropriate position and then subsequently placed tibial pins to hold this into place placed a size 9 mm poly as well as a size 5 femur which was appropriately impacted in place knee was then subsequently brought into extension. Trials were then assessed,? this was stable with varus valgus stress in extension as well as had symmetrical translation when brought into flexion demonstrating symmetrical gaps. I had excellent balance gaps in flexion and extension with varus and valgus stresses.? At this point I was satisfied with these implants these were then verified and opened on the back table size 4 tibia, size 5 femur,? size 9 mm polythickness.? We did confirm appropriate gap balancing and stresses as well as alignment utilizing? [employer] and were satisfied with this plan.? ?At this point time with my trials in place I then towel clip the patella everted this made appropriate measurements subsequently utilizing freehand technique performed by patellar resurfacing this was confirmed to be appropriate resection and subsequently sized to be a 31 mm symmetric.? My drill peg guides were then clamped and appropriate position and appropriate position in the patella for appropriate tracking and parallel with the joint.? Pegs were drilled trial implant was placed and the knee was then subsequently ranged and found to have excellent patellar tracking.? Femur pegs were then drilled.? Satisfied with our tibial placement rotation I then utilized the keel punch and prepped the tibia.? At this point time all of our trial implants were removed.? All checkpoints as well as guidepins and arrays were removed and appropriate counts made.? The wound bed? was thoroughly irrigated and dried and prepped for cementation.? Cement was mixed on the back table.? Once cement was ready this was then covered onto the tibia and the tibial baseplate was then impacted and all excess cement was removed.? Next the polyethylene was then impacted into place on the tibial baseplate.? Next cement was placed onto the femur as well as under the femur implants and impacted in to place and all excess cement was extruded and removed.? Knee was taken into full extension? to clear all excess cement was removed.? Warm saline was placed over the joint.? I then towel clip patella and dried for cementation. cemented the patella into place.? This was all clamped and the cement was allowed to cure.? Thorough irrigation performed with pulse?lavage.? I then placed my periarticular injection while the cement was curing.? Once cured the knee was taken through range of motion and had excellent stability and gaps were balanced in flexion and extension.? Patient would impinge on her thigh roughly at 105 110 degrees as this will be my expected postoperative range of motion for her. She is able to achieve full extension. Tourniquet was then deflated. hemostasis satisfactory with electrocautery.? Used 1 g vancomycin powder in the wound for infection prophylaxis. Next I then subsequently closed the capsule with Ethibond suture as well as a running strata fix suture.? Knee was then taken through range of motion and excellent patellar tracking. Times.? Next the skin was then closed in?layered fashion of running stratifix sutures of deep and subcutaneous tissue and skin.? ?closed in flexion with hubert. Incision was covered with russell, with ABDs soft roll and Augustus wrap.? Patient was then awakened from anesthesia and taken to PACU in stable condition. Disposition: Patient taken to PACU in stable condition will be admitted to the floor for pain control PT/OT weight-bear as tolerated?left?lower extremity dressing changes as needed, DVT prophylaxis. Pain control. Patient will receive appropriate postoperative antibiotics. patient will be seen today by the internal medicine team for medical management.? Patient will follow up with the office in 2 weeks.? Patient understands agrees with current plan.? All questions answered.
--- NOTE | 2023-12-06 09:44 | XRR_ITS ---
PROCEDURE INFORMATION: Exam: XR Left Knee Exam date and time: 12/06/2023 9:48 AM Age: 68 years old Clinical indication: Device placement; Joint replacement hardware; Prior surgery; Surgery date: Post-operative (0-2 days); Surgery type: Tka; Additional info: Postop tka TECHNIQUE: Imaging protocol: Radiologic exam of the left knee. Views: 1 or 2 views. COMPARISON: CT knee LT [facility] [id number] 11/24/2023 3:16 PM FINDINGS: Bones/joints: . Total-knee replacement. Anatomic alignment. Bone and metal are intact. Intra-articular and periarticular gas. Soft tissues: Anterior skin hubert. XR/XR knee LT 1-2V [id number] IMPRESSION: Normal following replacement.
--- NOTE | 2023-12-06 10:31 | PC.NURSE ---
Ice applied to behind L knee, pt verbalized relief. Able to move all extremities, pedal pulse strong to L foot, color pink. Meggan hugger in place. Core temp 97.0 from angulo, temp scan 97.7. Anesthesia okayed transfer. Pt voices being comfortable and no nausea. 88%-89% while sleeping, 2 L NC applied. Attempted to call report, nurse in rounding. Will call pacu when available. Pt eating ice chips.
--- NOTE | 2023-12-06 10:45 | ANE.PACU2 ---
Inpatient post-anesthesia follow up: Airway intact: Yes Vital signs: Temperature 98.1 F Pulse Rate 89 Respiratory Rate 18 Blood Pressure 124/75 Pulse Oximetry 95 Oxygen Delivery Me thod Room Air Oxygen Flow Rate 2 Fraction of Inspir ed Oxygen Hydration adequate: Yes Nausea and vomiting: No Pain level: 1 Mental status: Baseline
[2023-12-06] MEDS: oxyCODONE 5 mg IR Tab/Cap PO ×2 (11:43→15:39)
[2023-12-06] MEDS: lactated ringers 1,000 ML 100 ML IV ×2 (11:55→21:45)
--- NOTE | 2023-12-06 12:51 | P.CONIM_ITS ---
Providers/Reason For Consult 2 Consulting Physician/Specialty*: Hospitalist Reason for Consult*: Medical Management Requesting Physician: Godwin Aguero DO Attending Physician: Godwin Aguero DO Primary Care Provider: Garcia Tripathi MD History of Present Illness History of Present Illness Mely Alicea is a 68 year old female with degenerative arthritis, chronic pain left knee, underwent elective total left knee arthroplasty this morning. Medical history includes rheumatoid arthritis on methotrexate weekly, prednisone as needed for flares, has not had to use it recently. Chronic low back pain. Lumbar stenosis. Uneventful procedure, 25 mL EBL. General anesthesia. She is awake and alert, states she is doing all right. She is accompanied by family. On some minimal nasal cannula oxygen, not normally on oxygen. Denies trouble breathing. No nausea or vomiting. Not bothered by pain other than slight pain behind the left knee. Review of Systems 2 Const: Denies: fever(s), chills, body aches or malaise ENMT: Denies: throat pain Card: Denies: chest pain, edema, pre-syncope or dyspnea on exertion Resp: Denies: dyspnea, productive cough, change in phlegm color or hemoptysis GI: Denies: abdominal pain, nausea, vomiting, diarrhea, constipation, hematochezia or melena : Denies: flank pain, urinary frequency or hematuria Skin/Breast: Denies: rash or new lesions Neuro: Denies: headache(s), numbness in extremities, weakness in extremities, dizziness, confusion or seizure-like activity Medications/Allergies Home Medications Medication Instructions Recorded Confirmed Last Taken Type coenzyme Q10 10 mg capsule (Co 10 mg PO DAILY 02/18/21 12/06/23 12/05/23 History Q-10) hydrocodone 5 mg-acetaminophen 325 1 tab PO Q4H PRN Pain 04/28/22 12/06/23 12/06/23 History mg tablet hydrochlorothiazide 25 mg tablet 25 mg PO DAILY #90 tabs 12/14/22 12/06/23 12/05/23 Rx furosemide 40 mg tablet (Lasix) 40 mg PO DAILY #90 tabs 07/23/23 12/06/23 12/05/23 Rx ropinirole 0.25 mg tablet 0.75 mg (3 x 0.25 mg) PO .QHS #270 07/23/23 12/06/23 12/05/23 Rx tabs trazodone 50 mg tablet 50 mg PO .QHS #90 tabs 07/23/23 12/06/23 12/05/23 Rx glucosamine sulfate 2KCl 1,000 mg 1,000 mg PO DAILY 09/29/23 12/06/23 12/04/23 History tablet (Glucosamine Relief) potassium chloride 10 mEq 10 meq PO BID #180 tabs 09/30/23 12/06/23 12/05/23 Rx tablet,extended release (Klor-Con) folic acid 1 mg tablet 1 mg PO DAILY #30 tabs 10/06/23 12/06/23 12/05/23 Rx methotrexate sodium 2.5 mg tablet See Rx Instructions PO .Q7days #30 10/06/23 12/06/23 12/05/23 Rx tabs prednisone 20 mg tablet See Rx Instructions PO .COMPLEX 10/06/23 12/06/23 1 Week Ago Rx PRN joint pain flare #30 tabs ~11/29/23 paroxetine HCl 10 mg tablet (Paxil) 10 mg PO DAILY 12/03/23 12/06/23 12/05/23 History Allergies Allergy/AdvReac Type Severity Reaction Status Date / Time lisinopril Allergy ADR-Cough Verified 12/06/23 06:16 ezetimibe AdvReac ADR-Cramping Verified 12/06/23 06:16 of the Muscles Current Medications Generic Name Dose Route Start Last Admin Trade Name Freq PRN Reason Stop Dose Admin Lactated Ringer's 1,000 mls @ 100 mls/hr 12/06/23 11:06 12/06/23 11:55 Lactated Ringers IV 100 mls/hr .Q10H ERICA Administration Acetaminophen 1,000 mg in 100 mls @ 400 mls/hr 12/06/23 11:06 12/06/23 11:58 Acetaminophen IV 12/07/23 03:20 400 mls/hr Q8H ERICA Administration Oxycodone HCl 5 mg 12/06/23 11:06 12/06/23 11:43 Oxycodone 5 Mg Ir Tab/Cap PO 5 mg Q4H PRN Administration MODERATE PAIN PFSH Acute 2 PFSH: Medical History Immunization counseling Seropositive rheumatoid arthritis of multiple sites Endometrial adenocarcinoma Treatment started 10/2018 Chronic low back pain with sciatica Encounter for long-term (current) use of NSAIDs Instability of joint Acute back pain Acute bilateral low back pain with bilateral sciatica Encounter for long-term opiate analgesic use Lumbar stenosis with neurogenic claudication Surgical History History of back surgery Hx of knee surgery Hx of abdominal hysterectomy Hx of shoulder surgery Family History Other CAD (coronary artery disease) Cancer Hyperlipidemia Hypertension Social History Smoking and tobacco/nicotine status: never used tobacco/nicotine Second hand smoke exposure: No Alcohol intake: current Alcohol intake frequency: holidays/special occasions only Alcohol type: beer Substance/Drug Use: never Vitals/I&O/Wt Last Vital Signs Temp 98.1 F 12/06/23 11:06 Pulse 89 12/06/23 11:06 Resp 18 12/06/23 11:43 BP 124/75 12/06/23 11:06 Pulse Ox 95 12/06/23 11:43 O2 Del Method Room Air 12/06/23 11:06 O2 Flow Rate 2 12/06/23 10:45 12/05/23 12/06/23 12/06/23 22:59 06:59 14:59 Intake Total 100 / 100 1400 / 1400 Output Total 125 / 125 Balance 100 / 100 1275 / 1275 Weight last 48 hrs Weight 122.016 kg Physical Exam 2 Narrative: Accompanied by family. Const: COMMON NORMALS: patient oriented x3 and alert GENERAL APPEARANCE: c ooperative NUTRITIONAL APPEARANCE: obese ORIENTATION/CONSCIOUSNESS: Yes awake HENMT: COMMON NORMALS: oropharynx normal Neck/C-Spine: COMMON NORMALS: no JVD Resp: COMMON NORMALS: normal respiratory effort and clear to auscultation bilaterally AUSCULTATION: clear to auscultation bilaterally Cardio: COMMON NORMALS: no JVD, regular rhythm, S1 normal heart sound present, S2 normal heart sound present and No murmurs present (Cardio) RHYTHM: regular rhythm HEART SOUNDS: S1 normal heart sound present and S2 normal heart sound present GI: COMMON NORMALS: Normal to inspection, nondistended, normoactive bowel sounds present, Soft to palpation and non-tender PALPATION: Yes Soft to palpation Extremity: COMMON NORMALS: no joint enlargement and no pedal edema N ARRATIVE EXTREMITY EXAM: Left knee, postoperative dressing. Wiggles toes. Neuro: COMMON NORMALS: patient oriented x3 and moves all extremities S ENSORIUM/ORIENTATION: Yes alert Skin: COMMON NORMALS: no rashes or lesions noted GENERAL SKIN EXAM: no rashes or lesions noted Urinary Catheter Management: Vargas: Cath Placed During This Visit: yes Urinary Catheter Date of Insertion: 12/06/23 Urinary Catheter Time of Insertion: 07:18 Data 12/06/23 06:33 12/06/23 06:33 A&P Assessment and plan (1) Status post left knee replacement: Status post uneventful surgery left TKA, she is awake and alert, with minimal oxygen support. PT assessment. Remove Vargas. Consideration of possibly returning home tomorrow. Has a walker and other equipment at home. Started on Eliquis for DVT prophylaxis by orthopedics. Reviewed vitals, CBC, BMP, knee x- ray, orthopedic note. Discussed with orthopedic surgeon. Pain control, add acetaminophen PO as needed, has IV, oxycodone, tramadol, Toradol, IV hydromorphone for breakthrough pain. Discharge planning. (2) Rheumatoid arthritis: Per discussion with orthopedic surgery, okay to continue methotrexate, next dose on Wednesday. Resume folic acid. Uses prednisone as needed for flares. Monitor for adrenal insufficiency, no evidence currently. Has not had any recent use. Monitor blood pressures. Plan Hyperhidrosis: Reviewed PCP note, Being trialed on paroxetine 10 mg. Resume. History of endometrial cancer: Continue follow-up Chronic back pain: Pain management as above Restless leg syndrome: Continue ropinirole Chronic lower extremity edema: Continue Lasix. Per discussion with family she swells up quite a bit without it. Consult Attestations 2 Medical Necessity Statement: Continue hospitalization for assessment management following left TKA, postoperative management, pain control, post discharge planning and arrangements. and High MDM includes amount and/or complexity of data reviewed/ordered [ previous or external records, resulted lab(s)/test(s), ordered lab(s)/test(s), independent historian and other healthcare professional discussion] as documented Diagnoses Status post left knee replacement Z96.652 Rheumatoid arthritis M06.9
[2023-12-06] MEDS: tranexamic acid 1,000 MG/100 ML PREMIX 600 MG IV (14:55)
[2023-12-06] MEDS: ceFAZolin 3,000 MG in sodium chloride 0.9% (plus) 50 ML 100 MG IV ×2 (15:30→22:42)
[2023-12-06] MEDS: calcium carb-vit d 600mg/400unit 1 Tablet 1 EACH PO (17:27)
[2023-12-06] MEDS: iron polysaccharide complex 150 mg Capsule PO (17:27)
[2023-12-06] MEDS: docusate sodium 100 mg Capsule PO (17:27)
[2023-12-06] MEDS: chlorhexidine gluconate 0.12% Btl 473 mL 30 ML MUCOUS MEM ×2 (17:27→21:45)
[2023-12-07 00:35] VITALS: BP 121/68; PULSE 70; RESP 16; TEMP 36.8; O2SAT 95
[2023-12-07] MEDS: acetaminophen 1,000 MG/100 ML PIGGYBACK 400 MG IV (04:29)
[2023-12-07 06:18] LABS: Basophils % 0.1 %; Eosinophils % 0.1 %; Hematocrit 36.6 % (36-47); Lymphocytes # 1.1 10^3/uL (0.8-4.8); Lymphocytes % 6.9 %; Mean Corpuscular HGB Conc 32.5 g/dL (30-55); Mean Corpuscular Hemoglobin 30.1 pg (27-33); Mean Corpuscular Volume 92.4 fl (85-98); Mean Platelet Volume 8.7 fL (7.4-10.4); Monocytes # 1.4 10^3/uL (0.2-0.9); Monocytes % 8.9 %; Neutrophils # 13.25 10^3/uL (1.8-7.7); Neutrophils % 83.5 %; Nucleated Red Blood Cells % 0 %; Platelet Count 253 10^3/cmm (157-399); Red Blood Count 3.96 10^6/uL (3.85-5.65); Red Cell Distribution Width 15.1 % (12.1-15.1); White Blood Count 15.86 10^3/uL (3.29-11.43)
[2023-12-07 06:35] LABS: Anion Gap 9.5 (5-19); Blood Urea Nitrogen 13 mg/dL (8-23); Calcium 9.1 mg/dL (8.5-10.5); Carbon Dioxide 30 mmol/L (22-29); Chloride 101 mmol/L (98-107); Creatinine Clr Calc Pharmacy 92.0463; Glucose 126 mg/dL (65-115); Osmolality Calculated 286 mOsm/kg (285-295); Potassium 3.5 mmol/L (3.5-5.1); Sodium 137 mmol/L (136-145)
[2023-12-07 07:11] VITALS: BP 130/75; PULSE 72; RESP 16; TEMP 36.7; O2SAT 93
[2023-12-07] MEDS: ceFAZolin 3,000 MG in sodium chloride 0.9% (plus) 50 ML 100 MG IV (09:32)
[2023-12-07] MEDS: multivitamin therapeutic Tablet 1 TAB PO (09:33)
[2023-12-07] MEDS: folic acid 1 mg Tablet PO (09:33)
[2023-12-07] MEDS: iron polysaccharide complex 150 mg Capsule PO (09:33)
[2023-12-07] MEDS: TRAMadol 50 mg Tablet PO (09:33)
[2023-12-07] MEDS: calcium carb-vit d 600mg/400unit 1 Tablet 1 EACH PO (09:34)
[2023-12-07] MEDS: PARoxetine 20 mg Tablet 10 MG PO (09:34)
[2023-12-07] MEDS: sennosides-docusate Tablet 2 TAB PO (09:34)
[2023-12-07] MEDS: apixaban 5 mg Tablet 2.5 MG PO (09:34)
[2023-12-07] MEDS: docusate sodium 100 mg Capsule PO (09:34)
[2023-12-07] MEDS: FUROsemide 40 mg Tablet PO (09:34)
--- NOTE | 2023-12-07 10:14 | PC.CHAP ---
Pastoral Care Encounter/Spiritual Assessment Type of Contact [] Declined marketing communications coordinator visit [] Patient/Family/Request visit [] Outpatient visit [] Follow-up visit [] Physician referral [] Code/Alert [] Routine visit [] Staff referral [] Actively dying [x] Patient sleeping [] Family support [] [] Out of room [] Palliative care [] [] Receiving care in room [] Pre-surgical visit [] Trauma [] Long length of stay [] ICU visit [] Other: Relational/Emotional Strength [] Patient feels connected with others/family/visitors/staff [] Distress [] Loneliness/isolation [] Abandonment Spirituality of Patient [] Person of Samantha [] Attends Jew of their Samantha [] Believes in Prayer [] Reads Bible or Hoahaoism materials [] There are Spiritual issues to be addressed Program Associate Interventions [] Prayer [] Active listening [] Non-anxious presence [] Spiritual/emotional support [] Crisis/trauma care [] Spiritual counseling [] Bereavement support [] Provided bereavement packet [] Provided Bible/devotional materials [] Provided toy/stuffed animal, coloring book to patient or family member [] Provided Communion [] Anointing/[place] [] Salvation [] Completed spiritual assessment [] Other: Impact on Illness or Injury [] Angry [] Fearful [] Anxious [] Often cries [] Exhaustion [] Unable to work [] Unable to attend nondenominational [] Unable to walk/stand [] Unable to read [] Unable to drive [] Unable to eat/drink [] Unable to sleep [] Unable to be with family [] Patient intubated [] Other: Summary Time spent with patient
[2023-12-07 10:37] VITALS: RESP 16; O2SAT 93
[2023-12-07] MEDS: oxyCODONE 5 mg IR Tab/Cap PO (10:37)
[2023-12-07 11:39] VITALS: BP 148/81; PULSE 83; RESP 16; TEMP 36.7; O2SAT 94
--- NOTE | 2023-12-07 12:56 | P.DS_ITS ---
Discharge Providers Date of Admission: 12/06/23 09:37 Date of Discharge: December 07, 2023 Attending Provider at Admission: Godwin Aguero DO Attending Provider at Discharge: Godwin Aguero DO Consults: Dr. Palomares?internal medicine Primary Care Provider: Garcia Tripathi MD Diagnoses at Discharge Discharge Diagnosis (1) Status post left knee replacement: Status: Acute (2) Rheumatoid arthritis: Status: Acute Reason for Visit Reason for Visit: M17.12 Brief History: Status post left total knee arthroplasty Hospital Course Hospital Course Patient presented to the preoperative holding area with plan for left total knee arthroplasty after patient has been worked up in the outpatient setting for failed conservative treatment of [left] knee degenerative joint disease. Once cleared by anesthesia for surgery patient subsequently was taken back to the operative suite underwent anesthesia per anesthesia department and then subsequently underwent a [left] total knee arthroplasty. Procedure was performed without any complications patient was taken to PACU in stable condition patient recovered well in PACU and then was admitted to the floor postoperatively internal medicine was consulted and on board for medical management and assistance with care. Patient received appropriate PT/OT, postoperative antibiotics, postoperative TXA, pain control, postoperative DVT prophylaxis. Elevation and ice. Patient encouraged for knee range of motion allowed weightbearing as tolerated to the operative lower extremity. Dressing was changed as needed, labs were monitored daily. Patient recovered well postoperatively and worked well and progressed well with therapy. It was determi verna on postoperative day [ 1] the patient was stable for discharge from an orthopedic standpoint and medicine. Patient was comfortable with discharge and plan was discharged home. Patient received appropriate discharge instructions as well as pain medication and DVT prophylaxis postoperatively. Given patient's obesity as risk factor as well as rheumatologic bleeding we will have her on prophylactic Keflex postoperatively. Given appropriate instructions for dressing management. Patient will follow-up with Dr. Aguero/orthopedics in the office in 2 weeks. All questions answered. Understand if there is any issues questions or concerns and contact the office. Physical Exam Narrative: Examination of the left knee dressings on in place is clean dry and intact patient is able to wiggle toes plantarflex and dorsiflex ankle sensation intact to light touch distally. Distal pulses palpable. Compartment soft compressible normal swelling noted about the left knee normal postoperatively. Calf soft nontender. Toes warm well-perfused. Urinary Catheter Management: Vargas: Cath Placed During This Visit: yes, but has since been removed by the nurse Reason for Continuing Indwelling Catheter: Decision to DC Catheter Urinary Catheter Date of Insertion: 12/06/23 Urinary Catheter Time of Insertion: 07:18 Date Urinary Catheter Removed: 12/07/23 Time Urinary Catheter Discontinued: 06:30 Discharge Data Studies Completed and Pending Completed Studies During Hospitalization Category Date Time Status XR knee LT 1-2V [id number] Routine Exams 12/06/23 09:44 Completed Pending at discharge Category Date Time Status Basic Metabolic Panel AM LABS Lab 12/08/23 04:00 Ordered Basic Metabolic Panel AM LABS Lab 12/09/23 04:00 Ordered Complete Blood Count w/Auto AM LABS Lab 12/08/23 04:00 Ordered Complete Blood Count w/Auto AM LABS Lab 12/09/23 04:00 Ordered Radiology Impressions Knee X-Ray 12/06/23 09:44 IMPRESSION: Normal following replacement. Laboratory Results WBC 15.86 10^3/uL (3.29-11.43) H 12/07/23 06:07 RBC 3.96 10^6/uL (3.85-5.65) 12/07/23 06:07 Hgb 11.90 g/dL (11.27-16.99) 12/07/23 06:07 Hct 36.6 % (36-47) 12/07/23 06:07 MCV 92.4 fl (85-98) 12/07/23 06:07 MCH 30.1 pg (27-33) 12/07/23 06:07 MCHC 32.5 g/dL (30-55) 12/07/23 06:07 RDW 15.1 % (12.1-15.1) 12/07/23 06:07 Plt Count 253 10^3/cmm (157-399) 12/07/23 06:07 MPV 8.7 fL (7.4-10.4) 12/07/23 06:07 Neut % (Auto) 83.5 % 12/07/23 06:07 Lymph % (Auto) 6.9 % 12/07/23 06:07 [place] % (Auto) 8.9 % 12/07/23 06:07 Eos % (Auto) 0.1 % 12/07/23 06:07 Baso % (Auto) 0.1 % 12/07/23 06:07 Neut # (Auto) 13.25 10^3/uL (1.8-7.7) H 12/07/23 06:07 Lymph # (Auto) 1.1 10^3/uL (0.8-4.8) 12/07/23 06:07 [place] # (Auto) 1.4 10^3/uL (0.2-0.9) H 12/07/23 06:07 Eos # (Auto) 0.0 10^3/uL (0.0-0.8) 12/07/23 06:07 Baso # (Auto) 0.0 10^3/uL (0.0-0.1) 12/07/23 06:07 Nucleated RBC % (auto) 0 % 12/07/23 06:07 Nucleated RBCs # 0.0 /100WBC 12/07/23 06:07 Sodium 137 mmol/L (136-145) 12/07/23 06:07 Potassium 3.5 mmol/L (3.5-5.1) 12/07/23 06:07 Chloride 101 mmol/L (98-107) 12/07/23 06:07 Carbon Dioxide 30 mmol/L (22-29) H 12/07/23 06:07 Anion Gap 9.5 (5-19) 12/07/23 06:07 BUN 13 mg/dL (8-23) 12/07/23 06:07 Creatinine 0.7 mg/dL (0.5-0.9) 12/07/23 06:07 GFR Calculation 83.0 mL/min (90-130) L 12/07/23 06:07 Glucose 126 mg/dL (65-115) H 12/07/23 06:07 Calculated Osmolality 286 mOsm/kg (285-295) 12/07/23 06:07 Calcium 9.1 mg/dL (8.5-10.5) 12/07/23 06:07 Blood Type A Positive 12/06/23 06:33 Rho(D) Type Rh positive 12/06/23 06:33 Antibody Screen Negative 12/06/23 06:33 Vitals Last Vital Signs Temp 98.0 F 12/07/23 11:39 Pulse 83 12/07/23 11:39 Resp 16 12/07/23 11:39 BP 148/81 12/07/23 11:39 Pulse Ox 94 12/07/23 11:39 O2 Del Method Room Air 12/07/23 11:39 O2 Flow Rate 1 12/07/23 07:11 Discharge Plan Discharge Patient Disposition: Home Condition: Stable Prescriptions: New Eliquis 2.5 mg tablet 2.5 mg PO BID 14 Days Qty: 28 0RF Calcium 600 + D(3) 600 mg-10 mcg (400 unit) tablet 1 tab PO DAILY 30 Days Qty: 30 0RF Continued coenzyme Q10 [Co Q-10] 10 mg capsule 10 mg PO DAILY prednisone 20 mg tablet See Rx Instructions PO .COMPLEX PRN (Reason: joint pain flare) Qty: 30 1RF Rx Instructions: take 1 or 2 tab daily for 3-7 days as needed for arthritis flare PO PRN; methotrexate sodium 2.5 mg tablet See Rx Instructions PO .Q7days Qty: 30 3RF Rx Instructions: take 6 tabs on same day once a week PO .Q7days; folic acid 1 mg tablet 1 mg PO DAILY Qty: 30 3RF glucosamine sulfate 2KCl [Glucosamine Relief] 1,000 mg tablet 1,000 mg PO DAILY Rx Instructions: administer with meals hydrochlorothiazide 25 mg tablet 25 mg PO DAILY Qty: 90 3RF ropinirole 0.25 mg tablet 0.75 mg PO .QHS Qty: 270 3RF trazodone 50 mg tablet 50 mg PO .QHS Qty: 90 3RF furosemide [Lasix] 40 mg tablet 40 mg PO DAILY Qty: 90 3RF potassium chloride [Klor-Con 10] 10 mEq tablet extended release 10 meq PO BID Qty: 180 3RF paroxetine HCl [Paxil] 10 mg tablet 10 mg PO DAILY Discontinued hydrocodone-acetaminophen 5-325 mg tablet 1 tab PO Q4H PRN (Reason: Pain) Discharge Orders: Discharge Order (Routine); Ordered 12/07/23 Ordered By: Godwni Aguero Referrals: Godwin Aguero DO [Physician] - 12/21/23 2:45 pm Garcia Tripathi MD [Primary Care Provider] - (We have notified your physician's clinic of the need for a follow-up appointment to be scheduled. If you have not heard from them within the next 2 business days, please call them directly. ) Discharge Diet: Advance as tolerated Discharge Activity: Increase activity as tolerated, Limit activity as instructed, Use walker/crutches as instructed and As per PT/OT instructions Patient Instructions: Cephalexin (By mouth), Oxycodone, Rapid Release (By mouth), Ondansetron (By mouth), Apixaban (By mouth), Total Knee Replacement (GEN), Joint Replacement Stoplight, Opioid Safety Activity Restrictions/Additional Instructions: Total knee postop Orthopedic discharge instructions: Patient may weight-bear as tolerated to the operative lower extremity Encourage knee range of motion as patient can tolerate use exercises from therapy Take DVT prophylaxis (blood thinner) as prescribed (i.e. Eliquis) Take pain medication as prescribed Take antinausea medication as needed Supplement with Citracal vitamin D for bone health and healing Take antibiotic as prescribed for surgical infection prophylaxis Ice as needed for pain and swelling Leave russell bandage dressing on for 7 days after that may remove, rinse incision with warm soapy water/shower pat dry keep clean dry and intact and redress with a clean dry Silverlon dressing. No baths or soap Follow-up in the orthopedic office in 2 weeks from date of surgery Contact the office for any questions or concerns per (fevers, increased drainage or redness around the incision site etc.) Discharge Attestations Time Spent in Discharge Care*: less than 30 min Quality Metrics Clinical Quality Measures [ No reported AMI, CVA or VTE this stay] Coding Level of Care Code Acute Code for Chg Fwd Diagnoses Status post left knee replacement Z96.652 Rheumatoid arthritis M06.9
--- NOTE | 2023-12-07 14:06 | P.PN_ITS ---
Subjective 2 Subjective: She reports she is doing well today. She was slightly sore on getting up to ambulate with physical therapy but did well. Pain has improved. Denies any chest pain or pressure, trouble breathing. Any other symptoms. Reinforced with her use of NSAIDs pulmonary and she states has been using it. She feels ready to return home. Vitals/I&O/Wt Last Vital Signs Temp 98.0 F 12/07/23 11:39 Pulse 83 12/07/23 11:39 Resp 16 12/07/23 11:39 BP 148/81 12/07/23 11:39 Pulse Ox 94 12/07/23 11:39 O2 Del Method Room Air 12/07/23 11:39 O2 Flow Rate 1 12/07/23 07:11 12/06/23 12/07/23 12/07/23 22:59 06:59 14:59 Intake Total 1713.333 / 3463.333 270 / 3733.333 1530 / 1530 Output Total 400 / 525 450 / 975 Balance 1313.333 / 2938.333 -180 / 2758.333 1530 / 1530 Weight last 48 hrs Weight 122.833 kg Weight 137.58 kg Weight 122.016 kg Weight 122.016 kg Physical Exam 2 Narrative: Accompanied by her sister. Const: COMMON NORMALS: patient oriented x3 and alert GENERAL APPEARANCE: c ooperative NUTRITIONAL APPEARANCE: obese ORIENTATION/CONSCIOUSNESS: Yes awake HENMT: COMMON NORMALS: oropharynx normal Neck/C-Spine: COMMON NORMALS: no JVD Resp: COMMON NORMALS: normal respiratory effort and clear to auscultation bilaterally AUSCULTATION: clear to auscultation bilaterally Cardio: COMMON NORMALS: no JVD, regular rhythm, S1 normal heart sound present, S2 normal heart sound present and No murmurs present (Cardio) RHYTHM: regular rhythm HEART SOUNDS: S1 normal heart sound present and S2 normal heart sound present GI: COMMON NORMALS: Normal to inspection, nondistended, normoactive bowel sounds present, Soft to palpation and non-tender PALPATION: Yes Soft to palpation Extremity: COMMON NORMALS: no joint enlargement and no pedal edema N ARRATIVE EXTREMITY EXAM: Left knee, postoperative dressing. Wiggles toes. Neuro: COMMON NORMALS: patient oriented x3 and moves all extremities S ENSORIUM/ORIENTATION: Yes alert Skin: COMMON NORMALS: no rashes or lesions noted GENERAL SKIN EXAM: no rashes or lesions noted Urinary Catheter Management: Vargas: Cath Placed During This Visit: yes, but has since been removed by the nurse Reason for Continuing Indwelling Catheter: Decision to DC Catheter Urinary Catheter Date of Insertion: 12/06/23 Urinary Catheter Time of Insertion: 07:18 Date Urinary Catheter Removed: 12/07/23 Time Urinary Catheter Discontinued: 06:30 Data 12/07/23 06:07 12/07/23 06:07 A&P Assessment and plan (1) Status post left knee replacement: Reviewed vitals, CBC, BMP, orthopedic note, discussed with orthopedic surgeon, discussed with telephonic nurse case manager. Noted some increase in leukocytosis 15.6, but otherwise she does not have any new symptoms. ED status primary. Suspect likely postoperative. She otherwise is doing very well. Has gotten up with therapy. Orthopedics is satisfied with her course and will be discharging her home. She feels to return. Understands to seek medical attention in case of any concerning symptoms, and to maintain strict fall and injury precautions. (2) Rheumatoid arthritis: She is to resume on her usual regimen. Per discussion with orthopedic surgery, okay to continue methotrexate, next dose on Wednesday. Resume folic acid. Uses prednisone as needed for flares. Monitor for adrenal insufficiency, no evidence currently. Has not had any recent use. Monitor blood pressures. Plan Hyperhidrosis: Reviewed PCP note, Being trialed on paroxetine 10 mg. Resume. History of endometrial cancer: Continue follow-up Chronic back pain: Pain management as above Restless leg syndrome: Continue ropinirole Chronic lower extremity edema: Continue Lasix. Per discussion with family she swells up quite a bit without it. Attestations 2 Medical Necessity Statement*: Returning home. Diagnoses Status post left knee replacement Z96.652 Rheumatoid arthritis M06.9
[2023-12-07 15:01] VITALS: BP 148/81; PULSE 83; RESP 16; TEMP 36.7; O2SAT 94
== END 2023-12-07 15:02 | disposition home or self-care (01) ==
LOC: MEDSURG 09:45
PROVIDERS: Admitting Provider Student in an Organized Health Care Education/Training Program; PCP Family Medicine; Visit Provider Student in an Organized Health Care Education/Training Program
PROC: 8E0Y0CZ Robotic Assisted Procedure of Lower Extremity, Open Approach (ICD-10-PCS; CPT 27447; principal; 2023-12-06 07:00)
DX: M17.12 Unilateral primary osteoarthritis, left knee (principal); M06.9 Rheumatoid arthritis, unspecified; Z85.89 Personal history of malignant neoplasm of other organs and systems; G89.29 Other chronic pain; M54.9 Dorsalgia, unspecified; G25.81 Restless legs syndrome; R60.0 Localized edema; I10 Essential (primary) hypertension; E66.01 Morbid (severe) obesity due to excess calories; Z68.42 Body mass index [BMI] 45.0-49.9, adult
CPT/HCPCS: 20985; 27447; 36415; 51702; 73560; 80048; 85025; 86850; 86900; 97110; 97116; 97161; 97165; C1776; G0378; J0131; J0171; J0360; J0690; J1100; J1170; J1200; J1885; J2405; J2704; J2710; J2795; J3010; J3370; J3490; J7030; J7120

== ENCOUNTER → 2023-12-09 11:37 | Outpatient (BNVA) | payer MEDICARE, MEDICAID, SELFPAY | PROVIDERS: PCP Family Medicine; Visit Provider Family Medicine | DX: R50.9 Fever, unspecified (principal) | CPT/HCPCS: 87400; 87426 ==

== ENCOUNTER → 2023-12-21 14:20 | Outpatient (BNVA) | payer MEDICARE, MEDICAID, SELFPAY | PROVIDERS: PCP Family Medicine; Visit Provider Physician Assistant | DX: Z96.652 Presence of left artificial knee joint (principal) | CPT/HCPCS: 73560; 73565; 99024 ==

== ENCOUNTER → 2024-02-03 12:53 | Outpatient (BNVA) | payer MEDICARE, MEDICAID, SELFPAY | PROVIDERS: PCP Family Medicine; Visit Provider Physician Assistant | DX: Z96.652 Presence of left artificial knee joint (principal) | CPT/HCPCS: 73560; 73565; 99024 ==

== ENCOUNTER → 2024-02-23 13:31 | Outpatient (BNVA) | payer MEDICARE, MEDICAID, SELFPAY | PROVIDERS: PCP Family Medicine; Visit Provider Internal Medicine Rheumatology | DX: M79.10 Myalgia, unspecified site (principal); M05.79 Rheumatoid arthritis with rheumatoid factor of multiple sites without organ or systems involvement; Z79.899 Other long term (current) drug therapy; Z71.85 Encounter for immunization safety counseling; Z11.1 Encounter for screening for respiratory tuberculosis; Z11.59 Encounter for screening for other viral diseases | CPT/HCPCS: 36415; 80076; 82565; 85025; 85651; 86140; 99214 ==

== ENCOUNTER → 2024-04-11 10:44 | Outpatient (BNVA) | payer MEDICARE, MEDICAID, SELFPAY | PROVIDERS: PCP Family Medicine; Visit Provider Physician Assistant | DX: Z96.652 Presence of left artificial knee joint (principal) | CPT/HCPCS: 99213 ==

== ENCOUNTER → 2024-07-05 11:09 | Outpatient (BNVA) | payer MEDICARE, MEDICAID, SELFPAY | PROVIDERS: PCP Family Medicine; Visit Provider Internal Medicine Rheumatology | DX: M05.79 Rheumatoid arthritis with rheumatoid factor of multiple sites without organ or systems involvement (principal); Z79.899 Other long term (current) drug therapy; M79.10 Myalgia, unspecified site; Z71.85 Encounter for immunization safety counseling | CPT/HCPCS: 36415; 80076; 82565; 85025; 85651; 86140; 99214 ==

== ENCOUNTER → 2024-11-08 11:05 | Outpatient (BNVA) | payer MEDICARE, MEDICAID, SELFPAY | PROVIDERS: PCP Family Medicine; Visit Provider Internal Medicine Rheumatology | DX: M79.10 Myalgia, unspecified site (principal); M05.79 Rheumatoid arthritis with rheumatoid factor of multiple sites without organ or systems involvement; Z79.899 Other long term (current) drug therapy; Z71.85 Encounter for immunization safety counseling | CPT/HCPCS: 36415; 80076; 82565; 85025; 85651; 86140; 99214 ==

== ENCOUNTER → 2024-12-04 13:11 | Outpatient (BNVA) | payer MEDICARE, MEDICAID, SELFPAY | PROVIDERS: PCP Family Medicine; Visit Provider Family Medicine | DX: Z00.00 Encounter for general adult medical examination without abnormal findings (principal); Z13.6 Encounter for screening for cardiovascular disorders; R73.09 Other abnormal glucose; E55.9 Vitamin D deficiency, unspecified; C54.1 Malignant neoplasm of endometrium; Z51.81 Encounter for therapeutic drug level monitoring | CPT/HCPCS: 80053; 80061; 82306; 83036; 86304 ==

== ENCOUNTER → 2024-12-08 10:25 | Outpatient (BNVA) | payer MEDICARE, MEDICAID, SELFPAY | PROVIDERS: PCP Family Medicine; Visit Provider Physician Assistant | DX: Z96.652 Presence of left artificial knee joint (principal) | CPT/HCPCS: 73560; 73565; 99213 ==

== ENCOUNTER 2024-12-11 10:52 | Outpatient (CLI) | payer MEDICARE, MEDICAID, SELFPAY ==
--- NOTE | 2024-12-11 11:06 | XRR_ITS ---
PROCEDURE INFORMATION: Exam: XR Chest Exam date and time: 12/11/2024 11:23 AM Age: 69 years old Clinical indication: Cough; HX of ovarian cancer TECHNIQUE: Imaging protocol: Radiologic exam of the chest. Views: 2 views. COMPARISON: CT chest w con* [id number] 10/29/2022 8:37 AM FINDINGS: Lungs: Unremarkable. No consolidation. Pleural spaces: Unremarkable. No pleural effusion. No pneumothorax. Heart/Mediastinum: Unremarkable. No cardiomegaly. Bones/joints: Unremarkable. XR/XR chest 2V* [id number] IMPRESSION: No acute findings.
--- NOTE | 2024-12-11 11:20 | MM_ITS ---
WS: [id number] BILATERAL SCREENING DIGITAL TOMOSYNTHESIS MAMMOGRAM WITH CAD HISTORY: Screening COMPARISON: 10/08/2022, 08/22/2021 Bilateral CC and MLO views with tomosynthesis and synthetic mammography submitted. Computer aided detection analyzed. Breast composition: The breasts are heterogeneously dense, which may obscure small masses. No suspicious masses, microcalcifications or architectural distortion. Scattered asymmetries in numerous calcifications within each breast. No distortion. MM/MM scr tomosynthesis [id number] IMPRESSION: BI-RADS: 2 - Benign FOLLOW UP: 1 Year Follow-up
== END 2024-12-11 10:53 | disposition home or self-care (01) ==
LOC: RAD 10:54
PROVIDERS: PCP Family Medicine; Visit Provider Family Medicine
DX: Z12.31 Encounter for screening mammogram for malignant neoplasm of breast (principal); R05.9 Cough, unspecified; R92.333 Mammographic heterogeneous density, bilateral breasts; N64.89 Other specified disorders of breast; R92.1 Mammographic calcification found on diagnostic imaging of breast
CPT/HCPCS: 71046; 77063; 77067

== ENCOUNTER → 2025-01-09 11:35 | Outpatient (BNVA) | payer MEDICARE, MEDICAID, SELFPAY | PROVIDERS: PCP Family Medicine; Visit Provider Student in an Organized Health Care Education/Training Program | DX: M25.561 Pain in right knee (principal); M17.11 Unilateral primary osteoarthritis, right knee; Z96.652 Presence of left artificial knee joint | CPT/HCPCS: 73560; 73565; 99213 ==

== ENCOUNTER → 2025-02-14 09:23 | Outpatient (BNVA) | payer MEDICARE, MEDICAID, SELFPAY | PROVIDERS: PCP Family Medicine; Visit Provider Internal Medicine Rheumatology | DX: M79.10 Myalgia, unspecified site (principal); Z79.899 Other long term (current) drug therapy; M05.79 Rheumatoid arthritis with rheumatoid factor of multiple sites without organ or systems involvement; Z71.85 Encounter for immunization safety counseling | CPT/HCPCS: 36415; 80076; 82565; 82657; 85025; 85651; 86140; 86480; 86704; 86803; 87340; 99214 ==

== ENCOUNTER → 2025-03-05 10:47 | Outpatient (BNVA) | payer MEDICARE, MEDICAID, SELFPAY | PROVIDERS: PCP Family Medicine; Visit Provider Family Medicine | DX: Z51.81 Encounter for therapeutic drug level monitoring (principal); E55.9 Vitamin D deficiency, unspecified; R53.81 Other malaise; R53.83 Other fatigue; E11.9 Type 2 diabetes mellitus without complications | CPT/HCPCS: 80053; 82306; 83036; 84439; 84443; 85025 ==

== ENCOUNTER → 2025-05-02 08:45 | Outpatient (BNVA) | payer MEDICARE, MEDICAID, SELFPAY | PROVIDERS: PCP Family Medicine; Visit Provider Physician Assistant | DX: M17.11 Unilateral primary osteoarthritis, right knee (principal) | CPT/HCPCS: 99213 ==

== ENCOUNTER → 2025-05-11 07:48 | Outpatient (BNVA) | payer MEDICARE, MEDICAID, SELFPAY | PROVIDERS: PCP Family Medicine; Visit Provider Dermatology | DX: L21.8 Other seborrheic dermatitis (principal); L71.8 Other rosacea; L82.1 Other seborrheic keratosis; L81.4 Other melanin hyperpigmentation; D48.5 Neoplasm of uncertain behavior of skin; L57.0 Actinic keratosis | CPT/HCPCS: 11102; 17000; 99204 ==

== ENCOUNTER → 2025-07-09 08:52 | Outpatient (BNVA) | payer MEDICARE, MEDICAID, SELFPAY | PROVIDERS: PCP Family Medicine; Visit Provider Internal Medicine Rheumatology | DX: M79.10 Myalgia, unspecified site (principal); M05.79 Rheumatoid arthritis with rheumatoid factor of multiple sites without organ or systems involvement; Z79.899 Other long term (current) drug therapy; Z71.85 Encounter for immunization safety counseling | CPT/HCPCS: 36415; 80076; 82565; 85025; 85651; 86140; 99214 ==

== ENCOUNTER → 2025-07-16 08:10 | Outpatient (BNVA) | payer MEDICARE, MEDICAID, SELFPAY | PROVIDERS: PCP Family Medicine; Visit Provider Dermatology | DX: L21.8 Other seborrheic dermatitis (principal); L71.9 Rosacea, unspecified; L82.1 Other seborrheic keratosis; L57.0 Actinic keratosis | CPT/HCPCS: 17000; 99214 ==